=== PATIENT | female | born 1945 | race Caucasian/White ===

== ENCOUNTER 2022-10-24 13:31 | Inpatient (IN) | payer MEDICARE, MEDICAID, SELFPAY ==
--- NOTE | 2022-10-24 14:19 | HO.PSYADMNOT ---
HPI Date of Service: 10/24/22 Chief Complaint: F03.90 F03.9 Sources of Information: patient interviewed, chart reviewed and crisis/core team assessment reviewed HPI Subjective Notes: Section 12B Narrative: Ms. Sahni is a 77 year-old [place]isian woman with hx of paranoia/psychosis (per daughter it has been long hx but mostly untreated until 2019) who was brought to [facility] due to pt presenting as increasingly more paranoid, refusing to eat as she believed her food has been poisoned, threatening to harm her daughter as well as pushing her daughter. In the ED, pt utox was negative. CBC with macrocytic anemia, low potassium (3.2 which was corrected and last potassium level was 4). Pt was given Invega Sustenna 117.5mg IM on 10/16/2022- this was first dose after several months of pt not being compliant with any antipsychotic (per daughter). On the unit, pt presents as agitated, demanding to leave. She declines signing CV. Communication was attempted with daughter on the phone and child care lead teacher deviced. Pt refused to further engage in any conversation with machine set up operator paper goods. Past Psychiatric History: Inpt: [facility] 2019 (pt was committed for involuntary treatment and was given Invega Sustenna 117.5mg IM with good effect) OP: none Past medication trials: invega sustenna Medical Evaluation Reviewed: Yes Labs- 10/08/22 cbc with diff shows macrocytic anemia, elevated MCV, 10/21/22 Sodium- 137;K 4.0; Cr 0.8, BUN 16 ECG 10/07/2022- Normal sinus rhythm, QTc 450ms [facility] Medical History (Updated 10/25/22 @ 08:25 by Roselia Lange) Dementia, unspecified, with behavioral disturbance History of syphilis Hyperlipidemia Hypertension Psychosis Family History: unknown Social History: Lives with daughter Substance History: None Trauma History: Unknown Diagnostics Labs 10/25/22 08:09 10/25/22 08:09 Meds/Allergies Meds Home Medications Medication Instructions Recorded Confirmed Type No Known Home Meds 10/24/22 10/24/22 History Allergies Allergies Allergy/AdvReac Type Severity Reaction Status Date / Time No Known Allergies Allergy Verified 10/24/22 13:55 Mental Status Exam Mental Status Exam Narrative: Appearance: pt wearing casual clothing, fair hygiene, in NAD Behavior: very guarded, hostile and agitated Psychomotor: agitation Speech: difficult to assess as pt speaking in creole and not engaging when asked to use child care lead teacher Delusions: pt guarded and suspicious of staff and her daughter, paranoid ideas Alert, unable to assess orientation SI: unable to assess HI: unable to assess Assessment & Plan Assessment & Plan (1) Schizophrenia, paranoid, chronic with acute exacerbation: Status: Acute Code(s): F20.0 - Paranoid schizophrenia Plan Mrs. Sahni is a 77 year-old [place]ian woman who apparently has long hx of paranoia/psychosis large untreated for decades until 2019 when she presented with increase combative behaviors secondary to paranoid, psychosis. She had been admitted to [facility] in 2019 and given Invega sustenna per records with good effect. Per daughter she has not been on antipsychotics since she was discharged from the hospital. Pt was given Invega Sustenna 117.5mg IM on 10/16/22 at [place] while waiting for psychiatric bed to come. Pt does not appear to have capacity to make medical decisions at this time. Daughter is healthcare proxy, which has been invoked. PLAN 1. Admit to S1, CV signed by HCP, 1:1 due to fall risk 2. order PT consult given unsteady gait 3. Continue Invega Sustenna 117.5mg IM- if she only received one dose and has not taken it for several months or years, can give loading dose- however, check creatine clearance to adjust dose if necessary. 4. Add Olanzapine 10mg po q6h prn agitation with ativan 2mg po q6h agitation 5. Aftercare planning. Patient educated on: diagnosis Reason for continued inpatient stay Substantial Risk for: harm to self, harm to others and inability to function Statement Statement: I have reviewed the history and physical and performed a pertinent examination on my patient. No changes have occurred unless specified. If the History and Physical was not performed prior to admission, the Hospitalist's service will be consulted for completing the admission physical. Time Spent With Patient Time: Total time managing care of this patient today ____ minutes.
--- NOTE | 2022-10-24 16:10 | HO.PM.IMCN ---
History of Present Illness Data of Consult Service Date: 10/24/22 Requesting physician: Wilman Rodríguez Primary Care Provider: Unknown Physician HPI Reason for consult: medical h&p 77-year-old [place] Creole speaking woman with history of unspecified dementia with behavioral disturbance, psychosis, chronic syphilis, hypertension, and hyperlipidemia admitted to Psychiatry with consult placed to hospitalist service for medical H&P. Well at [facility], the patient did have mild hypokalemia of 3.1 which was repleted, with improved potassium 4.0. She does have of mild macrocytic anemia with H/H 10.6/30.9% and MCV of 100.3. UA was negative. EKG showed normal sinus rhythm with nonspecific ST abnormality but no ST elevations or depressions suggestive of acute ischemia. Interview with the patient was conducted using [employer] video interpretor CALVIN # [id number]. Pt was argumentative and unable to be redirected and was not agreeable to participating in further exam. Review of Systems Review of Systems: Yes Unobtainable due to mental status [facility] Medical History (Updated 10/24/22 @ 16:31 by UVALDO Zhao) Dementia, unspecified, with behavioral disturbance History of syphilis Hyperlipidemia Hypertension Psychosis Social History Advance Directives: No Advance Directives Information Provided: Yes Meds Allergies Allergy/AdvReac Type Severity Reaction Status Date / Time No Known Allergies Allergy Verified 10/24/22 13:55 Active Medications: Current Medications Acetaminophen (Acetaminophen 325 Mg Tablet) 650 mg PO Q6H PRN PRN Reason: Headache/Pain Mild Scale (1-3) Al Hydroxide/Mg Hydroxide (Magnesium Hydrox/Alum Hydrox 30 Ml Oral.Susp) 30 ml PO Q6H PRN PRN Reason: Heartburn/Nausea Aspirin (Aspirin 81 Mg Tab.Chew) 81 mg PO DAILY [facility] Atorvastatin Calcium (Atorvastatin Calcium 20 Mg Tablet) 20 mg PO BEDTIME [facility] Hydroxyzine HCl (Hydroxyzine Hcl 25 Mg Tablet) 25 mg PO Q6H PRN PRN Reason: Anxiety Lorazepam (Lorazepam 1 Mg Tablet) 2 mg PO Q6H PRN PRN Reason: agitation Magnesium Hydroxide (Milk Of Magnesia 30 Ml Oral.Susp) 30 ml PO DAILY PRN PRN Reason: Constipation Olanzapine (Olanzapine Odt 10 Mg Tab.Rapdis) 10 mg TRANSLINGU Q6H PRN PRN Reason: agitation Senna/Docusate Sodium (Sennosides/Docusate Sodium Tablet) 1 tab PO BID [facility] Trazodone HCl (Trazodone Hcl 50 Mg Tablet) 50 mg PO BEDTIME PRN PRN Reason: Insomnia Home Medications Medication Instructions Recorded Confirmed Last Taken Type No Known Home Meds 10/24/22 10/24/22 Unknown History Physical Exam Vital Signs and Narrative: Constitutional - Awake and Alert, No apparent distress. Pt agitated, argumentative, unable to be redirected and did not participate in remainder of physical exam Eyes - PERRLA, EOMI Cardiovascular - S1S2, RRR, No edema Respiratory - Normal lung expansion, Normal respiratory effort, No respiratory distress, CTA bilaterally Skin - Warm/Dry Neurological - Alert, argumentative, unwilling to partipate in neuro exam. PERRL, EOMI do appear in tact Assessment and Plan (1) Routine medical exam: Status: Acute Plan 77-year-old [place] Creole speaking woman with history of unspecified dementia with behavioral disturbance, psychosis, chronic syphilis, hypertension, and hyperlipidemia admitted to psychiatry with consult placed to hospitalist service for medical H&P. # unspecified dementia with psychosis -plan per Psychiatry # hypertension -BP at [facility] [place] 144/84 -can continue chlorthalidone 25 mg daily -monitor potassium levels. If hyperkalemia persists, consider alternative antihypertensive agent # hyperlipidemia -continue statin # macrocytic anemia -H/H 10.6/30.9% at [facility] normal, above transfusion threshold -would check vitamin B12 and folic acid when checking routine labs # chronic syphilis -RPR titer 1:4 at [facility] 11/06/2019, unclear if treated -No lumbar puctures performed to date -Discuss with ID/neuro if there is concern neuro syphilis is contributing to patient condition and repeat RPR titer/syphilis screen Thank you for allowing me to participate in this consult. Signing off at this time. Please do not hesitate to call for further questions. Time Spent With Patient Time: Total time managing care of this patient today ____ minutes.
--- NOTE | 2022-10-24 16:33 | PC.NURSE ---
P admitted to the floor via stretcher from [place] ED. Pt reported to have received IM at [place] in order to be transferred. The pt ambulating with an unsteady gait, placed on 1:1 for safety. Attempted to conduct assessment with bed laborer, pt focused on getting her clothes back so she can leave. Information for admission assessment provided by the pt's Daughter Maria G. The pt's daughter reported that the pt has never been physically aggressive while in the hospital. Pt's daughter reported that the pt has not seen her primary care Dr in over [address] years, [address] Gamez from [facility]. Pt's daughter reported the pt has been refusing all medications while at home. HCP (pt's daughter, Maria G Miller) has been invoked.
[2022-10-24 16:39] VITALS: BMI 29.9
[2022-10-24] MEDS: LORazepam 2 MG/ML VIAL 1 MG IM (20:14)
[2022-10-24] MEDS: Haloperidol Lactate 5 MG/ML VIAL IM (20:15)
--- NOTE | 2022-10-24 20:50 | PC.NURSE ---
Pt positioning herself at exit door and refusing to move, actively exit seeking. She was offered alternative activities/spaces or to make a phone call. Pt redirected by several staff and she push, grabbed at staff badges and attempted to bite staff members. Security notified in attempt to encourage pt to move from exit. MD dumont called and order obtained for medical restrain Haldol 5mg and Ativan 1mg IM. Pt expectations were reviewed with pt via integration assistant on ipad with no effect. Pt was given IM injections at 1999. She maintained control after and remains on 1:1 observation.
[2022-10-25 07:30] VITALS: BP 131/58; PULSE 83; RESP 16; TEMP 36.4; O2SAT 96
[2022-10-25 08:12] LABS: MANUAL DIFF FLAG NO
[2022-10-25 08:19] LABS: Basophils Percent Auto 0.4 % (0-2); Eosinophils Absolute Auto 0.1 X10*3/uL (0.0-0.4); Eosinophils Percent Auto 0.7 % (0-4); Hematocrit 36.5 % (37.0-47.0); Hemoglobin 12.2 g/dl (12.0-16.0); Imm Gran Abs Auto 0.04 X10*3/uL (0.00-0.03); Imm Gran Pct Auto 0.5 % (0.0-0.4); Lymphocytes Percent Auto 36.6 % (20-40); Mean Corpuscular HGB Conc 33.4 g/dl (31.0-35.0); Mean Corpuscular Hemoglobin 34.7 pg (27.0-33.0); Mean Corpuscular Volume 103.7 fL (80.0-98.0); Mean Platelet Volume 9.2 fL (9.4-12.3); Monocytes Absolute Auto 0.6 X10*3/uL (0.1-1.2); Monocytes Percent Auto 7.5 % (2-11); NRBC Pct Auto 0.2 /100WBC (0.0-0.2); Neutrophils Absolute Auto 4.5 x10*3/uL (2.0-8.3); Neutrophils Percent Auto 54.3 % (45-73); Platelet Count 273 X10*3/uL (160-400); Red Blood Count 3.52 X10*6/uL (4.20-5.50); White Blood Count 8.2 X10*3/uL (4.8-10.8)
[2022-10-25] MEDS: Aspirin 81 MG TAB.CHEW PO (08:24)
[2022-10-25] MEDS: Sennosides/Docusate Sodium TABLET 1 TAB PO (08:25)
[2022-10-25 08:40] LABS: Estimated Average Glucose 108 mg/dL; Hemoglobin A1c % 5.4 %
[2022-10-25 08:55] LABS: Alanine Aminotransferase 20 U/L (0-31); Albumin Level 3.7 g/dL (3.5-5.0); Alkaline Phosphatase 81 U/L (39-117); Anion Gap 16 (12-20); Aspartate Amino Transferase 21 U/L (5-31); Bilirubin Total 0.4 mg/dL (0.0-1.0); Blood Urea Nitrogen 20 mg/dL (9-16); Carbon Dioxide 24 mmol/L (22-29); Chloride 107 mmol/L (96-108); Cholesterol 288 mg/dL; Creatinine Clr Calc Pharmacy 60.2; Estimated Glomerular Filt Rate > 60; Glucose Fasting 119 mg/dL (60-99); HDL Cholesterol 63 mg/dL; LDL Cholesterol Calculated 193 mg/dl; Potassium 4.5 mmol/L (3.3-5.1); Sodium 142 mmol/L (135-145); Total Protein 6.8 g/dL (6.5-8.0); Triglycerides 160 mg/dL
[2022-10-25 09:17] LABS: Folate 6.5 ng/mL (> or = 4.0); Vitamin B12 < 148 pg/mL (200-900)
[2022-10-25 18:00] VITALS: BP 139/71; PULSE 87; RESP 16; TEMP 35.7; O2SAT 94
--- NOTE | 2022-10-26 08:45 | P.PNPSI_ITS ---
Subjective Subjective Date of Service: 10/25/22 Reason For Visit: F03.90 F03.9 Subjective Notes: Conditional Voluntary (signed by HCP) Interim History: Pt had episode of combativeness last night, trying to strike staff, not responding to redirection. Pt required haldol IM with ativan IM. Pt has slept most of the day, did wake up for breakfast this morning. This senior underwriter checked twice in morning and evening and was still asleep. She did open her eyes, briefly when I called her name but went back to sleep. It was felt more therapeutic to let her sleep than waking her up. VS stable. No s/s of physical distress. Medication Compliance: No Review of Systems Review of Systems Yes Unobtainable due to mental status Mental Status Exam Mental Status Exam Narrative: Appearance: pt wearing casual clothing, fair hygiene, in NAD Behavior: very guarded, hostile and agitated Psychomotor: agitation Speech: difficult to assess as pt speaking in creole and not engaging when asked to use fence erector Delusions: pt guarded and suspicious of staff and her daughter, paranoid ideas Alert, unable to assess orientation SI: unable to assess HI: unable to assess Diagnostics Vital Signs (24Hr): Vital Signs - 24 hr 10/25/22 18:00 Temperature 96.3 F L Pulse Rate 87 Respiratory Rate 16 Blood Pressure 139/71 Pulse Oximetry 94 Oxygen Delivery Method Room Air BMI result Body Mass Index 29.9 Labs 10/25/22 08:09 10/25/22 08:09 Labs: Laboratory Results - last 48 hr 10/25/22 10/25/22 10/25/22 08:09 08:09 08:09 WBC 8.2 RBC 3.52 L Hgb 12.2 Hct 36.5 L MCV 103.7 H MCH 34.7 H MCHC 33.4 RDW 14.0 Plt Count 273 MPV 9.2 L Immature Gran % (Auto) 0.5 H Neut % (Auto) 54.3 Lymph % (Auto) 36.6 [place] % (Auto) 7.5 Eos % (Auto) 0.7 Baso % (Auto) 0.4 Lymph # (Auto) 3.0 [place] # (Auto) 0.6 Eos # (Auto) 0.1 Baso # (Auto) 0.0 Abs Immat Gran (auto) 0.04 H Absolute Neuts (auto) 4.5 Absolute Nucleated RBC 0.020 H Nucleated RBC % (auto) 0.2 Sodium 142 Potassium 4.5 Chloride 107 Carbon Dioxide 24 Anion Gap 16 BUN 20 H Creatinine 0.83 Estim Creat Clear Calc 60.2 Estimated GFR > 60 Fasting Glucose 119 H Estimat Average Glucose 108 Hemoglobin A1c % 5.4 Calcium 9.0 Total Bilirubin 0.4 AST 21 ALT 20 Alkaline Phosphatase 81 Total Protein 6.8 Albumin 3.7 Triglycerides 160 Cholesterol 288 LDL Cholesterol, Calc 193 HDL Cholesterol 63 Vitamin B12 < 148 L Folate 6.5 TSH 1.70 Medications Medications Current Medications Acetaminophen (Acetaminophen 325 Mg Tablet) 650 mg PO Q6H PRN PRN Reason: Headache/Pain Mild Scale (1-3) Al Hydroxide/Mg Hydroxide (Magnesium Hydrox/Alum Hydrox 30 Ml Oral.Susp) 30 ml PO Q6H PRN PRN Reason: Heartburn/Nausea Aspirin (Aspirin 81 Mg Tab.Chew) 81 mg PO DAILY [facility] Last Admin: 10/25/22 08:24 Dose: 81 mg Atorvastatin Calcium (Atorvastatin Calcium 20 Mg Tablet) 20 mg PO BEDTIME [facility] Last Admin: 10/25/22 22:17 Dose: Not Given Hydroxyzine HCl (Hydroxyzine Hcl 25 Mg Tablet) 25 mg PO Q6H PRN PRN Reason: Anxiety Lorazepam (Lorazepam 1 Mg Tablet) 2 mg PO Q6H PRN PRN Reason: agitation Magnesium Hydroxide (Milk Of Magnesia 30 Ml Oral.Susp) 30 ml PO DAILY PRN PRN Reason: Constipation Olanzapine (Olanzapine Odt 10 Mg Tab.Rapdis) 10 mg TRANSLINGU Q6H PRN PRN Reason: agitation Senna/Docusate Sodium (Sennosides/Docusate Sodium Tablet) 1 tab PO BID [facility] Last Admin: 10/25/22 22:17 Dose: Not Given Trazodone HCl (Trazodone Hcl 50 Mg Tablet) 50 mg PO BEDTIME PRN PRN Reason: Insomnia Allergies Allergies Allergy/AdvReac Type Severity Reaction Status Date / Time No Known Allergies Allergy Verified 10/24/22 13:55 Assessment & Plan Assessment & Plan (1) Schizophrenia, paranoid, chronic with acute exacerbation: Status: Acute Code(s): F20.0 - Paranoid schizophrenia Plan Mrs. Sahni is a 77 year-old [place]ian woman who apparently has long hx of paranoia/psychosis large untreated for decades until 2019 when she presented with increase combative behaviors secondary to paranoid, psychosis. She had been admitted to [facility] in 2019 and given Invega sustenna per records with good effect. Per daughter she has not been on antipsychotics since she was discharged from the hospital. Pt was given Invega Sustenna 117.5mg IM on 10/16/22 at [place] while waiting for psychiatric bed to come. Pt does not appear to have capacity to make medical decisions at this time. Daughter is healthcare proxy, which has been invoked. PLAN 1. Admit to S1, CV signed by HCP, 1:1 due to fall risk 2. order PT consult given unsteady gait 3. Continue Invega Sustenna 117.5mg IM- if she only received one dose and has not taken it for several months or years, can give loading dose- however, check creatine clearance to adjust dose if necessary. 4. Add Olanzapine 10mg po q6h prn agitation with ativan 2mg po q6h agitation 5. Aftercare planning. 10/25/22 continue tx. HCP invoked, CV signed by HCP. Reason for contiued inpatient stay Substantial Risk for: harm to others and inability to function Time Spent With Patient Time: Total time managing care of this patient today ____ minutes.
[2022-10-26] MEDS: Aspirin 81 MG TAB.CHEW PO (09:30)
[2022-10-26] MEDS: Sennosides/Docusate Sodium TABLET 1 TAB PO (09:30)
[2022-10-26 09:42] VITALS: BP 147/66; PULSE 74; RESP 16; TEMP 36.3; O2SAT 97
--- NOTE | 2022-10-26 11:29 | HO.PSYCHPN ---
Subjective Subjective Date of Service: 10/26/22 Reason For Visit: F03.90 F03.9 Subjective Notes: Conditional Voluntary (signed by HCP) Healthcare Proxy: Yes Interim History: Pt seen with CINDA Paul. Pt presents calmer, asks to be discharged today. Pt interviewed with aid of phone gas prover line in creole. Pt denies paranoia regarding food, per gas prover, pt stated that that is crazy, who said that! I eat everything. Pt has been seen eating here better. Pt guarded towards daughter and states daughter wants to take her house from her, although pt states the house was bought by both of them. Pt has been seen self dialoguing. Pt had episode of combativeness last night but agreed to take oral medications. She slept most of the night. Pt reports she does not want Invega Sustenna as she does not like injection. She asks for oral formulation instead. Pt oriented to month, year, place, not situation as she states she does not know why she is here. Medication Compliance: Intermittent Review of Systems Review of Systems Yes Unobtainable due to mental status Mental Status Exam Mental Status Exam Narrative: Appearance: pt wearing casual clothing, fair hygiene, in NAD Behavior: very guarded, hostile and agitated Psychomotor: agitation Speech: difficult to assess as pt speaking in creole and not engaging when asked to use campus wellness coordinator Delusions: pt guarded and suspicious of staff and her daughter, paranoid ideas Alert, unable to assess orientation SI: unable to assess HI: unable to assess Diagnostics Vital Signs (24Hr): Vital Signs - 24 hr 10/25/22 18:00 10/26/22 09:42 Temperature 96.3 F L 97.4 F Pulse Rate 87 74 Respiratory Rate 16 16 Blood Pressure 139/71 147/66 H Pulse Oximetry 94 97 Oxygen Delivery Method Room Air Room Air BMI result Body Mass Index 29.9 Labs 10/25/22 08:09 10/25/22 08:09 Labs: Laboratory Results - last 48 hr 10/25/22 10/25/22 10/25/22 08:09 08:09 08:09 WBC 8.2 RBC 3.52 L Hgb 12.2 Hct 36.5 L MCV 103.7 H MCH 34.7 H MCHC 33.4 RDW 14.0 Plt Count 273 MPV 9.2 L Immature Gran % (Auto) 0.5 H Neut % (Auto) 54.3 Lymph % (Auto) 36.6 [place] % (Auto) 7.5 Eos % (Auto) 0.7 Baso % (Auto) 0.4 Lymph # (Auto) 3.0 [place] # (Auto) 0.6 Eos # (Auto) 0.1 Baso # (Auto) 0.0 Abs Immat Gran (auto) 0.04 H Absolute Neuts (auto) 4.5 Absolute Nucleated RBC 0.020 H Nucleated RBC % (auto) 0.2 Sodium 142 Potassium 4.5 Chloride 107 Carbon Dioxide 24 Anion Gap 16 BUN 20 H Creatinine 0.83 Estim Creat Clear Calc 60.2 Estimated GFR > 60 Fasting Glucose 119 H Estimat Average Glucose 108 Hemoglobin A1c % 5.4 Calcium 9.0 Total Bilirubin 0.4 AST 21 ALT 20 Alkaline Phosphatase 81 Total Protein 6.8 Albumin 3.7 Triglycerides 160 Cholesterol 288 LDL Cholesterol, Calc 193 HDL Cholesterol 63 Vitamin B12 < 148 L Folate 6.5 TSH 1.70 Medications Medications Current Medications Acetaminophen (Acetaminophen 325 Mg Tablet) 650 mg PO Q6H PRN PRN Reason: Headache/Pain Mild Scale (1-3) Al Hydroxide/Mg Hydroxide (Magnesium Hydrox/Alum Hydrox 30 Ml Oral.Susp) 30 ml PO Q6H PRN PRN Reason: Heartburn/Nausea Aspirin (Aspirin 81 Mg Tab.Chew) 81 mg PO DAILY [facility] Last Admin: 10/26/22 09:30 Dose: 81 mg Atorvastatin Calcium (Atorvastatin Calcium 20 Mg Tablet) 20 mg PO BEDTIME [facility] Last Admin: 10/25/22 22:17 Dose: Not Given Hydroxyzine HCl (Hydroxyzine Hcl 25 Mg Tablet) 25 mg PO Q6H PRN PRN Reason: Anxiety Lorazepam (Lorazepam 1 Mg Tablet) 2 mg PO Q6H PRN PRN Reason: agitation Magnesium Hydroxide (Milk Of Magnesia 30 Ml Oral.Susp) 30 ml PO DAILY PRN PRN Reason: Constipation Olanzapine (Olanzapine Odt 10 Mg Tab.Rapdis) 10 mg TRANSLINGU Q6H PRN PRN Reason: agitation Senna/Docusate Sodium (Sennosides/Docusate Sodium Tablet) 1 tab PO BID [facility] Last Admin: 10/26/22 09:30 Dose: 1 tab Trazodone HCl (Trazodone Hcl 50 Mg Tablet) 50 mg PO BEDTIME PRN PRN Reason: Insomnia Allergies Allergies Allergy/AdvReac Type Severity Reaction Status Date / Time No Known Allergies Allergy Verified 10/24/22 13:55 Assessment & Plan Assessment & Plan (1) Schizophrenia, paranoid, chronic with acute exacerbation: Status: Acute Code(s): F20.0 - Paranoid schizophrenia Plan Mrs. Sahni is a 77 year-old Turkish woman who apparently has long hx of paranoia/psychosis large untreated for decades until 2019 when she presented with increase combative behaviors secondary to paranoid, psychosis. She had been [facility] to [facility] in 2019 and given Invega sustenna per records with good effect. Per daughter she has not been on antipsychotics since she was discharged from the hospital. Pt was given Invega Sustenna 117.5mg IM on 10/16/22 at [facility] while waiting for psychiatric bed to come. Pt does not appear to have capacity to make medical decisions at this time. Daughter is healthcare proxy, which has been invoked. PLAN 1. Admit to , CV signed by HCP, 1:1 due to fall risk 2. order PT consult given unsteady gait 3. Continue Invega Sustenna 117mg IM- if she only received one dose and has not taken it for several months or years, can give loading dose- however, check creatine clearance to adjust dose if necessary. 4. Add Olanzapine 10mg po q6h prn agitation with ativan 2mg po q6h agitation 5. Aftercare planning. 10/25/22 continue tx. HCP invoked, CV signed by HCP. 10/26 creatine clearance is 60, recommended dose 117mg but could be increase monitoring for side effects as excretion is less. Will schedule low dose haldol (monitor for EPS). At this point pt declines invega Sustenna FIGUEROA. Haldol 2.5mg po BID. Pt may benefit for mood stabilizer for explosive behaviors. Reason for contiued inpatient stay Substantial Risk for: harm to others and inability to function Time Spent With Patient Time: Total time managing care of this patient today ____ minutes.
[2022-10-26 18:00] VITALS: BP 167/92; PULSE 80; RESP 16; TEMP 36.2; O2SAT 98
[2022-10-27 08:30] VITALS: BP 138/63; PULSE 87; RESP 16; TEMP 36.3; O2SAT 99
[2022-10-27] MEDS: Aspirin 81 MG TAB.CHEW PO (08:45)
[2022-10-27] MEDS: HaloperidoL 5 MG TABLET 2.5 MG PO ×2 (08:45→19:45)
[2022-10-27] MEDS: Sennosides/Docusate Sodium TABLET 1 TAB PO ×2 (08:46→19:43)
--- NOTE | 2022-10-27 18:48 | PC.NURSE ---
Agitation noted 1800, trying to get out patio door. Difficult to redirect, loudly screaming at times. Ambulated to main entrance door, wanting to exit. Staff unable to redirect. Staff unable to enter and exit unit. Security called and pt ambulated back into community area with them without need for hands on escort. Pt returned to sit in front of main entrance door after security left unit. Belonging placed in room and pt followed staff with increased agitation. Pt picked up waste basket and threw it out in mack from room. Pt then slammed door of bathroom. Pt then exited room with belongings and sat in community area at table. Ativan 2 mg and Zydis 10mg po offered at 1855 and refused. Gestured with hands that she was calming by lowering hands in downward motion. Oncoming shift updated on behaviors and refusal of meds offered.
[2022-10-27] MEDS: OLANZapine ODT 10 MG TAB.RAPDIS TRANSLINGU (19:43)
[2022-10-27] MEDS: LORazepam 1 MG TABLET 2 MG PO (19:44)
[2022-10-27] MEDS: Atorvastatin Calcium 20 MG TABLET PO (19:48)
[2022-10-27 19:50] VITALS: BP 142/72; PULSE 88; RESP 17; TEMP 36.3; O2SAT 98
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
[2022-10-28] MEDS: HaloperidoL 5 MG TABLET 2.5 MG PO (09:18)
[2022-10-28] MEDS: Aspirin 81 MG TAB.CHEW PO (09:19)
[2022-10-28] MEDS: Sennosides/Docusate Sodium TABLET 1 TAB PO (09:19)
[2022-10-28 09:22] VITALS: BP 120/59; PULSE 71; RESP 16; TEMP 36.7; O2SAT 98
--- NOTE | 2022-10-28 13:01 | HO.PSYCHPN ---
Subjective Subjective Date of Service: 10/28/22 Reason For Visit: F03.90 F03.9 Subjective Notes: Conditional Voluntary Healthcare Proxy: Yes Interim History: pt has been calmer, She did take haldol twice a day. She slept through the night. Her speech is more clear. She reports feeling well. She denies physical pain. She continues to self dialogue with her . No aggression, still very paranoid and suspicious towards daughter. Medication Compliance: Yes Review of Systems Review of Systems Yes Unobtainable due to mental status Mental Status Exam Mental Status Exam Narrative: Appearance: pt wearing casual clothing, fair hygiene, in NAD Behavior: much calmer, less agitated, pleasant Psychomotor: no agitation or retardation noted Speech: much clear, regular rate/rhythm/volume, spontaneous Delusions: pt guarded and suspicious of staff and her daughter, paranoid ideas Alert, oriented to place, month, date but not situation VH/AH: pt talking to who is not there nor he exists. SI: denies HI: denies Mood: good Affect: brighter, less labile Insight/judgment: impaired x 2. although improving Diagnostics Vital Signs (24Hr): Vital Signs - 24 hr 10/27/22 19:50 10/28/22 09:22 Temperature 97.4 F 98.1 F Pulse Rate 88 71 Respiratory Rate 17 16 Blood Pressure 142/72 H 120/59 L Pulse Oximetry 98 98 Oxygen Delivery Method Room Air Room Air BMI result Body Mass Index 29.9 Labs 10/25/22 08:09 10/25/22 08:09 Medications Medications Current Medications Acetaminophen (Acetaminophen 325 Mg Tablet) 650 mg PO Q6H PRN PRN Reason: Headache/Pain Mild Scale (1-3) Al Hydroxide/Mg Hydroxide (Magnesium Hydrox/Alum Hydrox 30 Ml Oral.Susp) 30 ml PO Q6H PRN PRN Reason: Heartburn/Nausea Aspirin (Aspirin 81 Mg Tab.Chew) 81 mg PO DAILY [facility] Last Admin: 10/28/22 09:19 Dose: 81 mg Atorvastatin Calcium (Atorvastatin Calcium 20 Mg Tablet) 20 mg PO BEDTIME [facility] Last Admin: 10/27/22 19:48 Dose: 20 mg Haloperidol (Haloperidol 5 Mg Tablet) 2.5 mg PO BID [facility] Last Admin: 10/28/22 09:18 Dose: 2.5 mg Hydroxyzine HCl (Hydroxyzine Hcl 25 Mg Tablet) 25 mg PO Q6H PRN PRN Reason: Anxiety Lorazepam (Lorazepam 1 Mg Tablet) 2 mg PO Q6H PRN PRN Reason: agitation Last Admin: 10/27/22 19:44 Dose: 2 mg Magnesium Hydroxide (Milk Of Magnesia 30 Ml Oral.Susp) 30 ml PO DAILY PRN PRN Reason: Constipation Olanzapine (Olanzapine Odt 10 Mg Tab.Rapdis) 10 mg TRANSLINGU Q6H PRN PRN Reason: agitation Last Admin: 10/27/22 19:43 Dose: 10 mg Senna/Docusate Sodium (Sennosides/Docusate Sodium Tablet) 1 tab PO BID [facility] Last Admin: 10/28/22 09:19 Dose: 1 tab Trazodone HCl (Trazodone Hcl 50 Mg Tablet) 50 mg PO BEDTIME PRN PRN Reason: Insomnia Allergies Allergies Allergy/AdvReac Type Severity Reaction Status Date / Time No Known Allergies Allergy Verified 10/24/22 13:55 Assessment & Plan Assessment & Plan (1) Schizophrenia, paranoid, chronic with acute exacerbation: Status: Acute Code(s): F20.0 - Paranoid schizophrenia Plan Mrs. Sahni is a 77 year-old Micronesian woman who apparently has long hx of paranoia/psychosis large untreated for decades until 2019 when she presented with increase combative behaviors secondary to paranoid, psychosis. She had been admitted to [facility] in 2019 and given Invega sustenna per records with good effect. Per daughter she has not been on antipsychotics since she was discharged from the hospital. Pt was given Invega Sustenna 117.5mg IM on 10/16/22 at [place] while waiting for psychiatric bed to come. Pt does not appear to have capacity to make medical decisions at this time. Daughter is healthcare proxy, which has been invoked. PLAN 10/27 continue tx. 10/28 continue tx Reason for contiued inpatient stay Substantial Risk for: harm to others and inability to function Time Spent With Patient Time: Total time managing care of this patient today ____ minutes.
[2022-10-28 18:00] VITALS: RESP 16
[2022-10-29] MEDS: Aspirin 81 MG TAB.CHEW PO (09:10)
[2022-10-29] MEDS: HaloperidoL 5 MG TABLET 2.5 MG PO (09:10)
[2022-10-29] MEDS: Sennosides/Docusate Sodium TABLET 1 TAB PO (09:10)
[2022-10-29 18:00] VITALS: BP 141/63; PULSE 69; RESP 18; TEMP 36.4; O2SAT 95
--- NOTE | 2022-10-29 20:08 | HO.PSYCHPN ---
Subjective Subjective Date of Service: 10/29/22 Reason For Visit: F03.90 F03.9 Subjective Notes: Conditional Voluntary Interim History: Pt mostly in her room. Minimally interactive with peers. This magnetic tape typewriter operator observed pt talking to person she reports is her - which is not there. She did take haldol twice a day. She slept through the night. Her speech is more clear. She reports feeling well. She denies physical pain.No aggression, still very paranoid and suspicious towards daughter. Review of Systems Review of Systems Yes Unobtainable due to mental status Mental Status Exam Mental Status Exam Narrative: Appearance: pt wearing casual clothing, fair hygiene, in NAD Behavior: much calmer, less agitated, pleasant Psychomotor: no agitation or retardation noted Speech: much clear, regular rate/rhythm/volume, spontaneous Delusions: pt guarded and suspicious of staff and her daughter, paranoid ideas Alert, oriented to place, month, date but not situation VH/AH: pt talking to who is not there nor he exists. SI: denies HI: denies Mood: good Affect: brighter, less labile Insight/judgment: impaired x 2. although improving Diagnostics Vital Signs (24Hr): BMI result Body Mass Index 29.9 Labs 10/25/22 08:09 10/25/22 08:09 Medications Medications Current Medications Acetaminophen (Acetaminophen 325 Mg Tablet) 650 mg PO Q6H PRN PRN Reason: Headache/Pain Mild Scale (1-3) Last Admin: 10/29/22 20:05 Dose: 650 mg Al Hydroxide/Mg Hydroxide (Magnesium Hydrox/Alum Hydrox 30 Ml Oral.Susp) 30 ml PO Q6H PRN PRN Reason: Heartburn/Nausea Aspirin (Aspirin 81 Mg Tab.Chew) 81 mg PO DAILY [facility] Last Admin: 10/29/22 09:10 Dose: 81 mg Atorvastatin Calcium (Atorvastatin Calcium 20 Mg Tablet) 20 mg PO BEDTIME [facility] Last Admin: 10/29/22 20:04 Dose: 20 mg Haloperidol (Haloperidol 5 Mg Tablet) 2.5 mg PO BID [facility] Last Admin: 10/29/22 20:06 Dose: 2.5 mg Hydroxyzine HCl (Hydroxyzine Hcl 25 Mg Tablet) 25 mg PO Q6H PRN PRN Reason: Anxiety Lidocaine (Lidocaine 4 % Patch Adh..Patch) 2 patch TRANSDERMA DAILY [facility]; Protocol Last Admin: 10/29/22 20:06 Dose: 2 patch Magnesium Hydroxide (Milk Of Magnesia 30 Ml Oral.Susp) 30 ml PO DAILY PRN PRN Reason: Constipation Olanzapine (Olanzapine Odt 10 Mg Tab.Rapdis) 10 mg TRANSLINGU Q6H PRN PRN Reason: agitation Last Admin: 10/27/22 19:43 Dose: 10 mg Senna/Docusate Sodium (Sennosides/Docusate Sodium Tablet) 1 tab PO BID [facility] Last Admin: 10/29/22 20:05 Dose: 1 tab Trazodone HCl (Trazodone Hcl 50 Mg Tablet) 50 mg PO BEDTIME PRN PRN Reason: Insomnia Allergies Allergies Allergy/AdvReac Type Severity Reaction Status Date / Time No Known Allergies Allergy Verified 10/24/22 13:55 Assessment & Plan Assessment & Plan (1) Schizophrenia, paranoid, chronic with acute exacerbation: Status: Acute Code(s): F20.0 - Paranoid schizophrenia Plan Mrs. Sahni is a 77 year-old Singaporean woman who apparently has long hx of paranoia/psychosis large untreated for decades until 2019 when she presented with increase combative behaviors secondary to paranoid, psychosis. She had been admitted to [facility] in 2019 and given Invega sustenna per records with good effect. Per daughter she has not been on antipsychotics since she was discharged from the hospital. Pt was given Invega Sustenna 117.5mg IM on 10/16/22 at [facility] while waiting for psychiatric bed to come. Pt does not appear to have capacity to make medical decisions at this time. Daughter is healthcare proxy, which has been invoked. PLAN 10/27 Continue tx including haldol 2.5mg po BID. Pt received last Invega Sustenna 117 mg IM on 10/16, declines second loading FIGUEROA of invega at this point. 10/28 continue tx. 10/28 continue tx. Reason for contiued inpatient stay Substantial Risk for: inability to function Time Spent With Patient Time: Total time managing care of this patient today ____ minutes.
--- NOTE | 2022-10-30 13:27 | P.PNPSI_ITS ---
Subjective Subjective Date of Service: 10/30/22 Reason For Visit: F03.90 F03.9 Interim History: Pt refused medications last night and this morning. Pt exit seeking, trying to leave unit. Pt states she is not staying here, wants to go. Staff trying to redirect her, she tried kicking staff, combative. She finally did agree to take olanzapine 10mg po. Pt later in bed, calmer. Pt seen talking to someone who is not there. Denies SI/HI. Medication Compliance: Intermittent Review of Systems Review of Systems Yes Unobtainable due to mental status Mental Status Exam Mental Status Exam Narrative: Appearance: pt wearing casual clothing, fair hygiene, in NAD Behavior: much calmer, less agitated, pleasant Psychomotor: no agitation or retardation noted Speech: much clear, regular rate/rhythm/volume, spontaneous Delusions: pt guarded and suspicious of staff and her daughter, paranoid ideas Alert, oriented to place, month, date but not situation VH/AH: pt talking to who is not there nor he exists. SI: denies HI: denies Mood: good Affect: brighter, less labile Insight/judgment: impaired x 2. although improving Diagnostics Vital Signs (24Hr): Vital Signs - 24 hr 10/29/22 18:00 Temperature 97.5 F Pulse Rate 69 Respiratory Rate 18 Blood Pressure 141/63 H Pulse Oximetry 95 Oxygen Delivery Method Room Air BMI result Body Mass Index 29.9 Labs 10/25/22 08:09 10/25/22 08:09 Medications Medications Current Medications Acetaminophen (Acetaminophen 325 Mg Tablet) 650 mg PO Q6H PRN PRN Reason: Headache/Pain Mild Scale (1-3) Al Hydroxide/Mg Hydroxide (Magnesium Hydrox/Alum Hydrox 30 Ml Oral.Susp) 30 ml PO Q6H PRN PRN Reason: Heartburn/Nausea Aspirin (Aspirin 81 Mg Tab.Chew) 81 mg PO DAILY [facility] Last Admin: 10/30/22 09:50 Dose: Not Given Atorvastatin Calcium (Atorvastatin Calcium 20 Mg Tablet) 20 mg PO BEDTIME [facility] Last Admin: 10/29/22 20:11 Dose: Not Given Haloperidol (Haloperidol 1 Mg Tablet) 3 mg PO BID [facility] Hydroxyzine HCl (Hydroxyzine Hcl 25 Mg Tablet) 25 mg PO Q6H PRN PRN Reason: Anxiety Lidocaine (Lidocaine 4 % Patch Adh..Patch) 2 patch TRANSDERMA DAILY [facility]; Protocol Magnesium Hydroxide (Milk Of Magnesia 30 Ml Oral.Susp) 30 ml PO DAILY PRN PRN Reason: Constipation Olanzapine (Olanzapine Odt 10 Mg Tab.Rapdis) 10 mg TRANSLINGU Q6H PRN PRN Reason: agitation Last Admin: 10/27/22 19:43 Dose: 10 mg Senna/Docusate Sodium (Sennosides/Docusate Sodium Tablet) 1 tab PO BID [facility] Last Admin: 10/30/22 09:51 Dose: Not Given Trazodone HCl (Trazodone Hcl 50 Mg Tablet) 50 mg PO BEDTIME PRN PRN Reason: Insomnia Allergies Allergies Allergy/AdvReac Type Severity Reaction Status Date / Time No Known Allergies Allergy Verified 10/24/22 13:55 Assessment & Plan Assessment & Plan (1) Schizophrenia, paranoid, chronic with acute exacerbation: Status: Acute Code(s): F20.0 - Paranoid schizophrenia Plan Mrs. Sahni is a 77 year-old Mauritian woman who apparently has long hx of paranoia/psychosis large untreated for decades until 2019 when she presented with increase combative behaviors secondary to paranoid, psychosis. She had been admitted to [facility] in 2019 and given Invega sustenna per records with good effect. Per daughter she has not been on antipsychotics since she was discharged from the hospital. Pt was given Invega Sustenna 117.5mg IM on 10/16/22 at [place] while waiting for psychiatric bed to come. Pt does not appear to have capacity to make medical decisions at this time. Daughter is healthcare proxy, which has been invoked. PLAN 10/27 Continue tx including haldol 2.5mg po BID. Pt received last Invega Sustenna 117 mg IM on 10/16, declines second loading FIGUEROA of invega at this point. 10/28 continue tx. 10/29 continue tx. 10/30 increasingly more combative,exit seeking, may have to affirm HCP Reason for contiued inpatient stay Substantial Risk for: harm to others and inability to function Time Spent With Patient Time: Total time managing care of this patient today ____ minutes.
[2022-10-30] MEDS: OLANZapine ODT 10 MG TAB.RAPDIS TRANSLINGU (14:00)
[2022-10-30] MEDS: LORazepam 1 MG TABLET PO (16:02)
[2022-10-30] MEDS: HaloperidoL 5 MG TABLET PO (16:02)
[2022-10-30] MEDS: Lidocaine 4 % Patch ADH..PATCH 2 PATCH TRANSDERMA (17:43)
[2022-10-30 18:00] VITALS: BP 156/67; PULSE 92; RESP 18; TEMP 36.1; O2SAT 98
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
[2022-10-30] MEDS: HaloperidoL 1 MG TABLET 3 MG PO (23:22)
[2022-10-30] MEDS: traZODone HCL 50 MG TABLET PO (23:22)
[2022-10-31 08:15] VITALS: BP 125/60; PULSE 98; RESP 16; TEMP 36.9; O2SAT 97
[2022-10-31] MEDS: OLANZapine ODT 10 MG TAB.RAPDIS TRANSLINGU ×2 (08:30→14:30)
[2022-10-31 18:00] VITALS: RESP 16
--- NOTE | 2022-10-31 21:44 | P.PNPSI_ITS ---
Subjective Subjective Date of Service: 10/31/22 Reason For Visit: F03.90 F03.9 Subjective Notes: Conditional Voluntary Healthcare Proxy: Yes Interim History: Pt did not sleep much last night. This morning, pt calmer, but declined medications as number of pills is too many. Haldol changed to 5mg po BID, so there is less tablets. Pt signed 3 day. Pt mostly visible during the day, social with select peers. Continues to talk to someone who is not there. She reports she can't take medications because she is . Review of Systems Review of Systems Yes Unobtainable due to mental status Mental Status Exam Mental Status Exam Narrative: Appearance: pt wearing casual clothing, fair hygiene, in NAD Behavior: much calmer, less agitated, pleasant Psychomotor: no agitation or retardation noted Speech: much clear, regular rate/rhythm/volume, spontaneous Delusions: pt guarded and suspicious of staff and her daughter, paranoid ideas Alert, oriented to place, month, date but not situation VH/AH: pt talking to who is not there nor he exists. SI: denies HI: denies Mood: good Affect: brighter, less labile Insight/judgment: impaired x 2. although improving Diagnostics Vital Signs (24Hr): Vital Signs - 24 hr 10/31/22 08:15 10/31/22 18:00 Temperature 98.4 F Pulse Rate 98 Respiratory Rate 16 16 Blood Pressure 125/60 Pulse Oximetry 97 Oxygen Delivery Method Room Air BMI result Body Mass Index 29.9 Labs 10/25/22 08:09 10/25/22 08:09 Medications Medications Current Medications Acetaminophen (Acetaminophen 325 Mg Tablet) 650 mg PO Q6H PRN PRN Reason: Headache/Pain Mild Scale (1-3) Al Hydroxide/Mg Hydroxide (Magnesium Hydrox/Alum Hydrox 30 Ml Oral.Susp) 30 ml PO Q6H PRN PRN Reason: Heartburn/Nausea Aspirin (Aspirin 81 Mg Tab.Chew) 81 mg PO DAILY [facility] Last Admin: 10/31/22 10:14 Dose: Not Given Atorvastatin Calcium (Atorvastatin Calcium 20 Mg Tablet) 20 mg PO BEDTIME [facility] Last Admin: 10/31/22 21:19 Dose: Not Given Haloperidol (Haloperidol 5 Mg Tablet) 5 mg PO BID [facility] Last Admin: 10/31/22 21:19 Dose: Not Given Hydroxyzine HCl (Hydroxyzine Hcl 25 Mg Tablet) 25 mg PO Q6H PRN PRN Reason: Anxiety Lidocaine (Lidocaine 4 % Patch Adh..Patch) 2 patch TRANSDERMA DAILY [facility]; Protocol Last Admin: 10/31/22 10:14 Dose: Not Given Magnesium Hydroxide (Milk Of Magnesia 30 Ml Oral.Susp) 30 ml PO DAILY PRN PRN Reason: Constipation Olanzapine (Olanzapine Odt 10 Mg Tab.Rapdis) 10 mg TRANSLINGU Q6H PRN PRN Reason: agitation Last Admin: 10/31/22 14:30 Dose: 10 mg Senna/Docusate Sodium (Sennosides/Docusate Sodium Tablet) 1 tab PO BID [facility] Last Admin: 10/31/22 21:18 Dose: Not Given Trazodone HCl (Trazodone Hcl 50 Mg Tablet) 50 mg PO BEDTIME PRN PRN Reason: Insomnia Last Admin: 10/30/22 23:22 Dose: 50 mg Allergies Allergies Allergy/AdvReac Type Severity Reaction Status Date / Time No Known Allergies Allergy Verified 10/24/22 13:55 Assessment & Plan Assessment & Plan (1) Schizophrenia, paranoid, chronic with acute exacerbation: Status: Acute Code(s): F20.0 - Paranoid schizophrenia Plan Mrs. Sahni is a 77 year-old Welsh woman who apparently has long hx of paranoia/psychosis large untreated for decades until 2019 when she presented with increase combative behaviors secondary to paranoid, psychosis. She had been admitted to [facility] in 2019 and given Invega sustenna per records with good effect. Per daughter she has not been on antipsychotics since she was discharged from the hospital. Pt was given Invega Sustenna 117.5mg IM on 10/16/22 at [place] while waiting for psychiatric bed to come. Pt does not appear to have capacity to make medical decisions at this time. Daughter is healthcare proxy, which has been invoked. PLAN 10/27 Continue tx including haldol 2.5mg po BID. Pt received last Invega Sustenna 117 mg IM on 10/16, declines second loading FIGUEROA of invega at this point. 10/28 continue tx. 10/29 continue tx. 10/30 increase haldol to 3mg po BID 10/31 increase haldol to 5mg po BID as it is less pills per pt request and fact that she continues to present floridly psychotic. Reason for contiued inpatient stay Substantial Risk for: harm to others and inability to function Time Spent With Patient Time: Total time managing care of this patient today ____ minutes.
[2022-11-01 06:00] VITALS: BP 127/57; PULSE 85; RESP 16; TEMP 36; O2SAT 97
[2022-11-01 18:00] VITALS: BP 154/71; PULSE 88; RESP 14; TEMP 36.3; O2SAT 97
--- NOTE | 2022-11-01 21:32 | HO.PSYCHPN ---
Subjective Subjective Date of Service: 11/01/22 Reason For Visit: F03.90 F03.9 Subjective Notes: Conditional Voluntary and 3 Day Healthcare Proxy: Yes Interim History: Pt in room much of time speech was mumbled irritable dysphoric Medication Compliance: Intermittent Mental Status Exam Mental Status Exam Narrative: Appearance: pt wearing casual clothing, fair hygiene, in NAD Behavior: withdrawn lying in bed Psychomotor: no agitation or retardation noted Speech: mumbled difficult to understand Delusions: pt guarded and suspicious of staff and her daughter, paranoid ideas Alert, oriented to place, month, date but not situation VH/AH: pt talking to who is not there nor he exists. SI: denies HI: denies Mood: good Affect: flat when seen Insight/judgment: impaired x 2. although improving Diagnostics Vital Signs (24Hr): Vital Signs - 24 hr 11/01/22 06:00 11/01/22 18:00 Temperature 96.8 F 97.4 F Pulse Rate 85 88 Respiratory Rate 16 14 Blood Pressure 127/57 L 154/71 H Pulse Oximetry 97 97 Oxygen Delivery Method Room Air Room Air BMI result Body Mass Index 29.9 Labs 10/25/22 08:09 10/25/22 08:09 Medications Medications Current Medications Acetaminophen (Acetaminophen 325 Mg Tablet) 650 mg PO Q6H PRN PRN Reason: Headache/Pain Mild Scale (1-3) Al Hydroxide/Mg Hydroxide (Magnesium Hydrox/Alum Hydrox 30 Ml Oral.Susp) 30 ml PO Q6H PRN PRN Reason: Heartburn/Nausea Aspirin (Aspirin 81 Mg Tab.Chew) 81 mg PO DAILY [facility] Last Admin: 11/01/22 09:01 Dose: Not Given Atorvastatin Calcium (Atorvastatin Calcium 20 Mg Tablet) 20 mg PO BEDTIME [facility] Last Admin: 11/01/22 21:08 Dose: Not Given Haloperidol (Haloperidol 5 Mg Tablet) 5 mg PO BID [facility] Last Admin: 11/01/22 21:09 Dose: Not Given Hydroxyzine HCl (Hydroxyzine Hcl 25 Mg Tablet) 25 mg PO Q6H PRN PRN Reason: Anxiety Lidocaine (Lidocaine 4 % Patch Adh..Patch) 2 patch TRANSDERMA DAILY [facility]; Protocol Last Admin: 11/01/22 09:02 Dose: Not Given Magnesium Hydroxide (Milk Of Magnesia 30 Ml Oral.Susp) 30 ml PO DAILY PRN PRN Reason: Constipation Olanzapine (Olanzapine Odt 10 Mg Tab.Rapdis) 10 mg TRANSLINGU Q6H PRN PRN Reason: agitation Last Admin: 10/31/22 14:30 Dose: 10 mg Senna/Docusate Sodium (Sennosides/Docusate Sodium Tablet) 1 tab PO BID [facility] Last Admin: 11/01/22 21:09 Dose: Not Given Trazodone HCl (Trazodone Hcl 50 Mg Tablet) 50 mg PO BEDTIME PRN PRN Reason: Insomnia Last Admin: 10/30/22 23:22 Dose: 50 mg Allergies Allergies Allergy/AdvReac Type Severity Reaction Status Date / Time No Known Allergies Allergy Verified 10/24/22 13:55 Assessment & Plan Assessment & Plan (1) Schizophrenia, paranoid, chronic with acute exacerbation: Status: Acute Code(s): F20.0 - Paranoid schizophrenia Plan Mrs. Sahni is a 77 year-old [place] woman who apparently has long hx of paranoia/psychosis large untreated for decades until 2019 when she presented with increase combative behaviors secondary to paranoid, psychosis. She had been admitted to [facility] in 2019 and given Invega sustenna per records with good effect. Per daughter she has not been on antipsychotics since she was discharged from the hospital. Pt was given Invega Sustenna 117.5mg IM on 10/16/22 at [place] while waiting for psychiatric bed to come. Pt does not appear to have capacity to make medical decisions at this time. Daughter is healthcare proxy, which has been invoked. PLAN 10/27 Continue tx including haldol 2.5mg po BID. Pt received last Invega Sustenna 117 mg IM on 10/16, declines second loading FIGUEROA of invega at this point. 10/28 continue tx. 10/29 continue tx. 10/30 increase haldol to 3mg po BID 10/31 increase haldol to 5mg po BID as it is less pills per pt request and fact that she continues to present floridly psychotic. 11/01/22 cont plan of care Reason for contiued inpatient stay Substantial Risk for: inability to function and rapid decompensation Time Spent With Patient Time: Total time managing care of this patient today ____ minutes.
[2022-11-02 06:00] VITALS: BP 153/66; PULSE 88; RESP 17; TEMP 36.4; O2SAT 97
[2022-11-02] MEDS: Magnesium Hydrox/Alum Hydrox 30 ML ORAL.SUSP PO (06:17)
[2022-11-02 07:00] VITALS: BMI 26.0
[2022-11-02] MEDS: Aspirin 81 MG TAB.CHEW PO (08:46)
[2022-11-02] MEDS: Sennosides/Docusate Sodium TABLET 1 TAB PO (08:47)
[2022-11-02] MEDS: Lidocaine 4 % Patch ADH..PATCH 2 PATCH TRANSDERMA (08:47)
[2022-11-02] MEDS: HaloperidoL 5 MG TABLET PO (08:47)
[2022-11-02 16:35] VITALS: RESP 17
[2022-11-02] MEDS: LORazepam 2 MG/ML VIAL IM (23:57)
[2022-11-02] MEDS: OLANZapine 10 MG VIAL IM (23:58)
--- NOTE | 2022-11-03 00:36 | PC.NURSE ---
Pt loudly self-dialoguing in room and began throwing thing in the mack. She was unable to be redirected and began posturing at staff. She was offered alternate activities, PRN medication, 1:1 support from staff, food and drink with no effect. She then began attempting to barricade the door to her room with roommate inside. Staff entered the room and pt put hands on staff pushing them. Security was call and medication ordered obtained. At 0000 pt was given Zyprexa 10mg IM and Ativan 2mg IM, staff putting pt in a physical hold to safely administered medications. Pt released at 0002 and monitored by staff, she declined all VS.
--- NOTE | 2022-11-03 08:29 | P.PNPSI_ITS ---
Subjective Subjective Date of Service: 11/02/22 Reason For Visit: F03.90 F03.9 Subjective Notes: 3 Day Interim History: Pt slept through the night. Pt reports feeling good. She denies SI/HI. She asks when can she go home, somewhat agitated when told that team feels she needs to be here longer for treatment and may petition court for involuntary treatment. Per nursing, pt taking medications, mostly in room, self dialoguing with whom pt identifies as her . Review of Systems Review of Systems Yes Unobtainable due to mental status Mental Status Exam Mental Status Exam Narrative: Appearance: pt wearing casual clothing, fair hygiene, in NAD Behavior: withdrawn lying in bed Psychomotor: no agitation or retardation noted Speech: mumbled difficult to understand Delusions: pt guarded and suspicious of staff and her daughter, paranoid ideas Alert, oriented to place, month, date but not situation VH/AH: pt talking to who is not there nor he exists. SI: denies HI: denies Mood: good Affect: flat when seen Insight/judgment: impaired x 2. although improving Diagnostics Vital Signs (24Hr): Vital Signs - 24 hr 11/02/22 16:35 Respiratory Rate 17 BMI result Body Mass Index 26.0 Labs 10/25/22 08:09 10/25/22 08:09 Medications Medications Current Medications Acetaminophen (Acetaminophen 325 Mg Tablet) 650 mg PO Q6H PRN PRN Reason: Headache/Pain Mild Scale (1-3) Al Hydroxide/Mg Hydroxide (Magnesium Hydrox/Alum Hydrox 30 Ml Oral.Susp) 30 ml PO Q6H PRN PRN Reason: Heartburn/Nausea Last Admin: 11/02/22 06:17 Dose: 30 ml Aspirin (Aspirin 81 Mg Tab.Chew) 81 mg PO DAILY [facility] Last Admin: 11/02/22 08:46 Dose: 81 mg Atorvastatin Calcium (Atorvastatin Calcium 20 Mg Tablet) 20 mg PO BEDTIME [facility] Last Admin: 11/02/22 20:44 Dose: Not Given Haloperidol (Haloperidol 5 Mg Tablet) 5 mg PO BID [facility] Last Admin: 11/02/22 20:44 Dose: Not Given Hydroxyzine HCl (Hydroxyzine Hcl 25 Mg Tablet) 25 mg PO Q6H PRN PRN Reason: Anxiety Lidocaine (Lidocaine 4 % Patch Adh..Patch) 2 patch TRANSDERMA DAILY [facility]; Protocol Last Admin: 11/02/22 08:47 Dose: 2 patch Magnesium Hydroxide (Milk Of Magnesia 30 Ml Oral.Susp) 30 ml PO DAILY PRN PRN Reason: Constipation Olanzapine (Olanzapine Odt 10 Mg Tab.Rapdis) 10 mg TRANSLINGU Q6H PRN PRN Reason: agitation Last Admin: 10/31/22 14:30 Dose: 10 mg Senna/Docusate Sodium (Sennosides/Docusate Sodium Tablet) 1 tab PO BID [facility] Last Admin: 11/02/22 20:44 Dose: Not Given Trazodone HCl (Trazodone Hcl 50 Mg Tablet) 50 mg PO BEDTIME PRN PRN Reason: Insomnia Last Admin: 10/30/22 23:22 Dose: 50 mg Allergies Allergies Allergy/AdvReac Type Severity Reaction Status Date / Time No Known Allergies Allergy Verified 10/24/22 13:55 Assessment & Plan Assessment & Plan (1) Schizophrenia, paranoid, chronic with acute exacerbation: Status: Acute Code(s): F20.0 - Paranoid schizophrenia Plan Mrs. Sahni is a 77 year-old [place] woman who apparently has long hx of paranoia/psychosis large untreated for decades until 2019 when she presented with increase combative behaviors secondary to paranoid, psychosis. She had been admitted to [facility] in 2019 and given Invega sustenna per records with good effect. Per daughter she has not been on antipsychotics since she was discharged from the hospital. Pt was given Invega Sustenna 117.5mg IM on 10/16/22 at [place] while waiting for psychiatric bed to come. Pt does not appear to have capacity to make medical decisions at this time. Daughter is healthcare proxy, which has been invoked. PLAN 10/27 Continue tx including haldol 2.5mg po BID. Pt received last Invega Sustenna 117 mg IM on 10/16, declines second loading FIGUEROA of invega at this point. 10/28 continue tx. 10/29 continue tx. 10/30 increase haldol to 3mg po BID 10/31 increase haldol to 5mg po BID as it is less pills per pt request and fact that she continues to present floridly psychotic. 11/01/22 cont plan of care 11/02 continue tx. Reason for contiued inpatient stay Substantial Risk for: inability to function Time Spent With Patient Time: Total time managing care of this patient today ____ minutes.
--- NOTE | 2022-11-03 11:54 | P.PNPSI_ITS ---
Subjective Subjective Date of Service: 11/03/22 Reason For Visit: F03.90 F03.9 Subjective Notes: Section 7 Interim History: Pt was agitated and combative last night, asking to leave the hospital, not responding to redirection, requiring IM medication. Pt today presents as somnolent. She is trying to stay in chair close to exit. Tried to redirect pt to her room to sleep but pt declined. Pt continues with delusions of having , daughter stealing from her and limited to no insight into psychiatric symptoms and need for treatment. Medication Compliance: Intermittent Side effects from medications: No Diagnostics Vital Signs (24Hr): Vital Signs - 24 hr 11/02/22 16:35 Respiratory Rate 17 BMI result Body Mass Index 26.0 Labs 10/25/22 08:09 10/25/22 08:09 Medications Medications Current Medications Acetaminophen (Acetaminophen 325 Mg Tablet) 650 mg PO Q6H PRN PRN Reason: Headache/Pain Mild Scale (1-3) Al Hydroxide/Mg Hydroxide (Magnesium Hydrox/Alum Hydrox 30 Ml Oral.Susp) 30 ml PO Q6H PRN PRN Reason: Heartburn/Nausea Last Admin: 11/02/22 06:17 Dose: 30 ml Aspirin (Aspirin 81 Mg Tab.Chew) 81 mg PO DAILY [facility] Last Admin: 11/03/22 10:11 Dose: Not Given Atorvastatin Calcium (Atorvastatin Calcium 20 Mg Tablet) 20 mg PO BEDTIME [facility] Last Admin: 11/02/22 20:44 Dose: Not Given Haloperidol (Haloperidol 5 Mg Tablet) 5 mg PO BID [facility] Last Admin: 11/03/22 10:11 Dose: Not Given Hydroxyzine HCl (Hydroxyzine Hcl 25 Mg Tablet) 25 mg PO Q6H PRN PRN Reason: Anxiety Lidocaine (Lidocaine 4 % Patch Adh..Patch) 2 patch TRANSDERMA DAILY [facility]; Protocol Last Admin: 11/03/22 10:11 Dose: Not Given Magnesium Hydroxide (Milk Of Magnesia 30 Ml Oral.Susp) 30 ml PO DAILY PRN PRN Reason: Constipation Olanzapine (Olanzapine Odt 10 Mg Tab.Rapdis) 10 mg TRANSLINGU Q6H PRN PRN Reason: agitation Last Admin: 10/31/22 14:30 Dose: 10 mg Senna/Docusate Sodium (Sennosides/Docusate Sodium Tablet) 1 tab PO BID [facility] Last Admin: 11/03/22 10:11 Dose: Not Given Trazodone HCl (Trazodone Hcl 50 Mg Tablet) 50 mg PO BEDTIME PRN PRN Reason: Insomnia Last Admin: 10/30/22 23:22 Dose: 50 mg Allergies Allergies Allergy/AdvReac Type Severity Reaction Status Date / Time No Known Allergies Allergy Verified 10/24/22 13:55 Assessment & Plan Assessment & Plan (1) Schizophrenia, paranoid, chronic with acute exacerbation: Status: Acute Code(s): F20.0 - Paranoid schizophrenia Plan Mrs. Sahni is a 77 year-old [place] woman who apparently has long hx of paranoia/psychosis large untreated for decades until 2019 when she presented with increase combative behaviors secondary to paranoid, psychosis. She had been admitted to [facility] in 2019 and given Invega sustenna per records with good effect. Per daughter she has not been on antipsychotics since she was discharged from the hospital. Pt was given Invega Sustenna 117.5mg IM on 10/16/22 at [place] while waiting for psychiatric bed to come. Pt does not appear to have capacity to make medical decisions at this time. Daughter is healthcare proxy, which has been invoked. PLAN 10/27 Continue tx including haldol 2.5mg po BID. Pt received last Invega Sustenna 117 mg IM on 10/16, declines second loading FIGUEROA of invega at this point. 10/28 continue tx. 10/29 continue tx. 10/30 increase haldol to 3mg po BID 10/31 increase haldol to 5mg po BID as it is less pills per pt request and fact that she continues to present floridly psychotic. 11/01/22 cont plan of care 11/02 continue tx. 11/03 petition for involuntary commitment sent to court. Pt on sect 7. Reason for contiued inpatient stay Substantial Risk for: harm to others and inability to function Time Spent With Patient Time: Total time managing care of this patient today ____ minutes.
[2022-11-03 18:00] VITALS: RESP 16
[2022-11-03] MEDS: Sennosides/Docusate Sodium TABLET 1 TAB PO (20:23)
[2022-11-03] MEDS: HaloperidoL 5 MG TABLET PO (20:23)
[2022-11-03] MEDS: Atorvastatin Calcium 20 MG TABLET PO (20:23)
[2022-11-04 06:00] VITALS: BP 119/58; PULSE 84; RESP 16; TEMP 36.6; O2SAT 94
[2022-11-04] MEDS: Sennosides/Docusate Sodium TABLET 1 TAB PO (08:26)
[2022-11-04] MEDS: Aspirin 81 MG TAB.CHEW PO (08:26)
[2022-11-04] MEDS: HaloperidoL 5 MG TABLET PO (08:26)
--- NOTE | 2022-11-04 15:34 | HO.PSYCHPN ---
Subjective Subjective Date of Service: 11/04/22 Reason For Visit: F03.90 F03.9 Interim History: Met with patient; reviewed chart; discussed with team; review chart Patient sitting quietly in the day room on approach. Patient's 1st question is when can she go home. Electrical Project Manager tried to educate patient on process of discharge however she does repeated when can I go? She says she has nothing to do here and at home she has a daughter. Electrical Project Manager did tried to explain further but she just said I am leaving and looked away. Staff reports patient was intensely exit seeking yesterday however today she has been in good behavioral control. Mental Status Exam Mental Status Exam Narrative: Appearance: pt wearing casual clothing, well groomed Behavior: Calm though a little guarded Psychomotor: no agitation or retardation noted Speech: Spontaneous; strong [place] dialect making her a little hard to understand VH/AH; delusions: pt talking to who is not there and reportedly does not exists. SI: denies HI: denies Mood: When can I go Affect: Constricted Insight/judgment: impaired Diagnostics Vital Signs (24Hr): Vital Signs - 24 hr 11/03/22 18:00 11/04/22 06:00 Temperature 97.8 F Pulse Rate 84 Respiratory Rate 16 16 Blood Pressure 119/58 L Pulse Oximetry 94 Oxygen Delivery Method Room Air BMI result Body Mass Index 26.0 Labs 10/25/22 08:09 10/25/22 08:09 Medications Medications Current Medications Acetaminophen (Acetaminophen 325 Mg Tablet) 650 mg PO Q6H PRN PRN Reason: Headache/Pain Mild Scale (1-3) Al Hydroxide/Mg Hydroxide (Magnesium Hydrox/Alum Hydrox 30 Ml Oral.Susp) 30 ml PO Q6H PRN PRN Reason: Heartburn/Nausea Last Admin: 11/02/22 06:17 Dose: 30 ml Aspirin (Aspirin 81 Mg Tab.Chew) 81 mg PO DAILY [facility] Last Admin: 11/04/22 08:26 Dose: 81 mg Atorvastatin Calcium (Atorvastatin Calcium 20 Mg Tablet) 20 mg PO BEDTIME [facility] Last Admin: 11/03/22 20:23 Dose: 20 mg Haloperidol (Haloperidol 5 Mg Tablet) 5 mg PO BID [facility] Last Admin: 11/04/22 08:26 Dose: 5 mg Hydroxyzine HCl (Hydroxyzine Hcl 25 Mg Tablet) 25 mg PO Q6H PRN PRN Reason: Anxiety Lidocaine (Lidocaine 4 % Patch Adh..Patch) 2 patch TRANSDERMA DAILY [facility]; Protocol Last Admin: 11/04/22 11:22 Dose: Not Given Magnesium Hydroxide (Milk Of Magnesia 30 Ml Oral.Susp) 30 ml PO DAILY PRN PRN Reason: Constipation Olanzapine (Olanzapine Odt 10 Mg Tab.Rapdis) 10 mg TRANSLINGU Q6H PRN PRN Reason: agitation Last Admin: 10/31/22 14:30 Dose: 10 mg Senna/Docusate Sodium (Sennosides/Docusate Sodium Tablet) 1 tab PO BID [facility] Last Admin: 11/04/22 08:26 Dose: 1 tab Trazodone HCl (Trazodone Hcl 50 Mg Tablet) 50 mg PO BEDTIME PRN PRN Reason: Insomnia Last Admin: 10/30/22 23:22 Dose: 50 mg Allergies Allergies Allergy/AdvReac Type Severity Reaction Status Date / Time No Known Allergies Allergy Verified 10/24/22 13:55 Assessment & Plan Assessment & Plan (1) Schizophrenia, paranoid, chronic with acute exacerbation: Status: Acute Code(s): F20.0 - Paranoid schizophrenia Plan Mrs. Sahni is a 77 year-old [place] woman who apparently has long hx of paranoia/psychosis large untreated for decades until 2019 when she presented with increase combative behaviors secondary to paranoid, psychosis. She had been admitted to [facility] in 2019 and given Invega sustenna per records with good effect. Per daughter she has not been on antipsychotics since she was discharged from the hospital. Pt was given Invega Sustenna 117.5mg IM on 10/16/22 at [place] while waiting for psychiatric bed to come. Pt does not appear to have capacity to make medical decisions at this time. Daughter is healthcare proxy, which has been invoked. PLAN 10/27 Continue tx including haldol 2.5mg po BID. Pt received last Invega Sustenna 117 mg IM on 10/16, declines second loading FIGUEROA of invega at this point. 10/28 continue tx. 10/29 continue tx. 10/30 increase haldol to 3mg po BID 10/31 increase haldol to 5mg po BID as it is less pills per pt request and fact that she continues to present floridly psychotic. 11/01/22 cont plan of care 11/02 continue tx. 11/03 petition for involuntary commitment sent to court. Pt on sect 7. 11/04 remains focused on discharge and otherwise difficult with which to engage; continue current treatment plan, though has been refusing medications Patient educated on: diagnosis Informed Consent: does not understand Reason for contiued inpatient stay Substantial Risk for: inability to function Time Spent With Patient Time: Total time managing care of this patient today ____ minutes.
[2022-11-04 18:00] VITALS: BP 138/63; PULSE 97; RESP 16; TEMP 36; O2SAT 98
[2022-11-05 08:00] VITALS: BP 132/89; PULSE 90; RESP 16; TEMP 36.2; O2SAT 96
[2022-11-05] MEDS: HaloperidoL 5 MG TABLET PO ×2 (08:20→21:37)
[2022-11-05] MEDS: Aspirin 81 MG TAB.CHEW PO (08:20)
[2022-11-05] MEDS: Sennosides/Docusate Sodium TABLET 1 TAB PO (08:21)
[2022-11-05 18:00] VITALS: BP 185/118; PULSE 85; RESP 16; TEMP 36.1; O2SAT 97
[2022-11-05] MEDS: Atorvastatin Calcium 20 MG TABLET PO (21:37)
[2022-11-05] MEDS: traZODone HCL 50 MG TABLET PO (21:37)
[2022-11-05] MEDS: cloNIDine HCL 0.1 MG TABLET PO ×2 (22:21→23:59)
[2022-11-05 23:09] VITALS: BP 183/79; PULSE 89
--- NOTE | 2022-11-06 09:59 | HO.PSYCHPN ---
Subjective Subjective Date of Service: 11/05/22 Reason For Visit: F03.90 F03.9 Interim History: late entry note for pt seen on 11/05/22 briefly met with patient who remains focused on when she will be discharged; unable to engage in meaningful conversation about admission/discharge; staff reports pt missing her estranged and tearful today Mental Status Exam Mental Status Exam Narrative: Appearance: pt wearing casual clothing, well groomed Behavior: Calm though a little guarded Psychomotor: no agitation or retardation noted Speech: Spontaneous; strong [place] dialect making her a little hard to understand VH/AH; delusions: pt talking to (who her). SI: denies HI: denies Mood: When can I go Affect: Constricted Insight/judgment: impaired Diagnostics Vital Signs (24Hr): Vital Signs - 24 hr 11/05/22 18:00 11/05/22 23:09 Temperature 97 F Pulse Rate 85 89 Respiratory Rate 16 Blood Pressure 185/118 H 183/79 H Pulse Oximetry 97 Oxygen Delivery Method Room Air Room Air BMI result Body Mass Index 26.0 Labs 10/25/22 08:09 10/25/22 08:09 Medications Medications Current Medications Acetaminophen (Acetaminophen 325 Mg Tablet) 650 mg PO Q6H PRN PRN Reason: Headache/Pain Mild Scale (1-3) Al Hydroxide/Mg Hydroxide (Magnesium Hydrox/Alum Hydrox 30 Ml Oral.Susp) 30 ml PO Q6H PRN PRN Reason: Heartburn/Nausea Last Admin: 11/02/22 06:17 Dose: 30 ml Aspirin (Aspirin 81 Mg Tab.Chew) 81 mg PO DAILY [facility] Last Admin: 11/05/22 08:20 Dose: 81 mg Atorvastatin Calcium (Atorvastatin Calcium 20 Mg Tablet) 20 mg PO BEDTIME [facility] Last Admin: 11/05/22 21:37 Dose: 20 mg Haloperidol (Haloperidol 5 Mg Tablet) 5 mg PO BID [facility] Last Admin: 11/05/22 21:37 Dose: 5 mg Hydroxyzine HCl (Hydroxyzine Hcl 25 Mg Tablet) 25 mg PO Q6H PRN PRN Reason: Anxiety Lidocaine (Lidocaine 4 % Patch Adh..Patch) 2 patch TRANSDERMA DAILY [facility]; Protocol Last Admin: 11/05/22 08:28 Dose: Not Given Magnesium Hydroxide (Milk Of Magnesia 30 Ml Oral.Susp) 30 ml PO DAILY PRN PRN Reason: Constipation Olanzapine (Olanzapine Odt 10 Mg Tab.Rapdis) 10 mg TRANSLINGU Q6H PRN PRN Reason: agitation Last Admin: 10/31/22 14:30 Dose: 10 mg Senna/Docusate Sodium (Sennosides/Docusate Sodium Tablet) 1 tab PO BID [facility] Last Admin: 11/05/22 21:41 Dose: Not Given Trazodone HCl (Trazodone Hcl 50 Mg Tablet) 50 mg PO BEDTIME PRN PRN Reason: Insomnia Last Admin: 11/05/22 21:37 Dose: 50 mg Allergies Allergies Allergy/AdvReac Type Severity Reaction Status Date / Time No Known Allergies Allergy Verified 10/24/22 13:55 Assessment & Plan Assessment & Plan (1) Schizophrenia, paranoid, chronic with acute exacerbation: Status: Acute Code(s): F20.0 - Paranoid schizophrenia Plan Mrs. Sahni is a 77 year-old [place] woman who apparently has long hx of paranoia/psychosis large untreated for decades until 2019 when she presented with increase combative behaviors secondary to paranoid, psychosis. She had been admitted to [facility] in 2019 and given Invega sustenna per records with good effect. Per daughter she has not been on antipsychotics since she was discharged from the hospital. Pt was given Invega Sustenna 117.5mg IM on 10/16/22 at [place] while waiting for psychiatric bed to come. Pt does not appear to have capacity to make medical decisions at this time. Daughter is healthcare proxy, which has been invoked. PLAN 10/27 Continue tx including haldol 2.5mg po BID. Pt received last Invega Sustenna 117 mg IM on 10/16, declines second loading FIGUEROA of invega at this point. 10/28 continue tx. 10/29 continue tx. 10/30 increase haldol to 3mg po BID 10/31 increase haldol to 5mg po BID as it is less pills per pt request and fact that she continues to present floridly psychotic. 11/01/22 cont plan of care 11/02 continue tx. 11/03 petition for involuntary commitment sent to court. Pt on sect 7. 11/04 remains focused on discharge and otherwise difficult with which to engage; continue current treatment plan, though has been refusing medications 11/05 continue current tx plan Reason for contiued inpatient stay Substantial Risk for: inability to function Time Spent With Patient Time: Total time managing care of this patient today ____ minutes.
[2022-11-06] MEDS: Lidocaine 4 % Patch ADH..PATCH 2 PATCH TRANSDERMA (10:05)
[2022-11-06] MEDS: Sennosides/Docusate Sodium TABLET 1 TAB PO ×2 (10:05→20:47)
[2022-11-06] MEDS: Aspirin 81 MG TAB.CHEW PO (10:05)
[2022-11-06] MEDS: HaloperidoL 5 MG TABLET PO ×2 (10:05→20:47)
--- NOTE | 2022-11-06 13:20 | HO.PSYCHPN ---
Subjective Subjective Date of Service: 11/06/22 Reason For Visit: F03.90 F03.9 Subjective Notes: Conditional Voluntary Interim History: The nursing staff reported that she refused her clonidine today in the morning and her blood pressure was high. She had been compliant and she had been self dialogue in. On interview the patient looks internally preoccupied. Mental Status Exam Mental Status Exam Patient Appearance: Well Grooomed and Appropriate Patient Orientation: Person and Situation Level of Consciousness: Awake Patient Behavior: Guarded and Passive Mood Description: Withdrawn Affect Description: Blunted Patient Cognition Impaired: Yes Ability to Follow Directions: Good Speech Pattern: Clear Hallucinations: Auditory Delusions: Paranoid Ideation Thought Content: positive for [place], positive for [place] and positive for Poverty of Content Judgement: Fair Diagnostics Vital Signs (24Hr): Vital Signs - 24 hr 11/05/22 18:00 11/05/22 23:09 Temperature 97 F Pulse Rate 85 89 Respiratory Rate 16 Blood Pressure 185/118 H 183/79 H Pulse Oximetry 97 Oxygen Delivery Method Room Air Room Air BMI result Body Mass Index 26.0 Labs 10/25/22 08:09 10/25/22 08:09 Medications Medications Current Medications Acetaminophen (Acetaminophen 325 Mg Tablet) 650 mg PO Q6H PRN PRN Reason: Headache/Pain Mild Scale (1-3) Al Hydroxide/Mg Hydroxide (Magnesium Hydrox/Alum Hydrox 30 Ml Oral.Susp) 30 ml PO Q6H PRN PRN Reason: Heartburn/Nausea Last Admin: 11/02/22 06:17 Dose: 30 ml Aspirin (Aspirin 81 Mg Tab.Chew) 81 mg PO DAILY [facility] Last Admin: 11/06/22 10:05 Dose: 81 mg Atorvastatin Calcium (Atorvastatin Calcium 20 Mg Tablet) 20 mg PO BEDTIME [facility] Last Admin: 11/05/22 21:37 Dose: 20 mg Haloperidol (Haloperidol 5 Mg Tablet) 5 mg PO BID [facility] Last Admin: 11/06/22 10:05 Dose: 5 mg Hydroxyzine HCl (Hydroxyzine Hcl 25 Mg Tablet) 25 mg PO Q6H PRN PRN Reason: Anxiety Lidocaine (Lidocaine 4 % Patch Adh..Patch) 2 patch TRANSDERMA DAILY [facility]; Protocol Last Admin: 11/06/22 10:05 Dose: 2 patch Magnesium Hydroxide (Milk Of Magnesia 30 Ml Oral.Susp) 30 ml PO DAILY PRN PRN Reason: Constipation Olanzapine (Olanzapine Odt 10 Mg Tab.Rapdis) 10 mg TRANSLINGU Q6H PRN PRN Reason: agitation Last Admin: 10/31/22 14:30 Dose: 10 mg Senna/Docusate Sodium (Sennosides/Docusate Sodium Tablet) 1 tab PO BID [facility] Last Admin: 11/06/22 10:05 Dose: 1 tab Trazodone HCl (Trazodone Hcl 50 Mg Tablet) 50 mg PO BEDTIME PRN PRN Reason: Insomnia Last Admin: 11/05/22 21:37 Dose: 50 mg Allergies Allergies Allergy/AdvReac Type Severity Reaction Status Date / Time No Known Allergies Allergy Verified 10/24/22 13:55 Assessment & Plan Assessment & Plan (1) Schizophrenia, paranoid, chronic with acute exacerbation: Status: Acute Code(s): F20.0 - Paranoid schizophrenia Plan Mrs. Sahni is a 77 year-old Lao woman who apparently has long hx of paranoia/psychosis large untreated for decades until 2019 when she presented with increase combative behaviors secondary to paranoid, psychosis. She had been admitted to [facility] in 2019 and given Invega sustenna per records with good effect. Per daughter she has not been on antipsychotics since she was discharged from the hospital. Pt was given Invega Sustenna 117.5mg IM on 10/16/22 at [place] while waiting for psychiatric bed to come. Pt does not appear to have capacity to make medical decisions at this time. Daughter is healthcare proxy, which has been invoked. PLAN 10/27 Continue tx including haldol 2.5mg po BID. Pt received last Invega Sustenna 117 mg IM on 10/16, declines second loading FIGUEROA of invega at this point. 10/28 continue tx. 10/29 continue tx. 10/30 increase haldol to 3mg po BID 10/31 increase haldol to 5mg po BID as it is less pills per pt request and fact that she continues to present floridly psychotic. 11/01/22 cont plan of care 11/02 continue tx. 11/03 petition for involuntary commitment sent to court. Pt on sect 7. 11/04 remains focused on discharge and otherwise difficult with which to engage; continue current treatment plan, though has been refusing medications 11/05 continue current tx plan 11/06 continue same treatment Reason for contiued inpatient stay Substantial Risk for: inability to function, rapid decompensation and med/psych decompensation Time Spent With Patient Time: Total time managing care of this patient today _20___ minutes.
[2022-11-06 18:00] VITALS: BP 118/56; PULSE 76; RESP 18; TEMP 36.8; O2SAT 97
--- NOTE | 2022-11-06 20:20 | PC.NURSE ---
Patient had some trouble using [place]ley interpretter today, Rossy Stallings interpretter Gayle ([id number]) was not interpretting as much information as the SW was trying to relate regaring HCP--Department lead notified. Patient's court appointed attorney law clerk was in to help explain, and Boy Perez interpretter on Dudley ([id number]) was very helpful, and patient was able to understand that dialogue. Says she does not want her daughter to be her HCP and that she is patient's enemy. Patient believes she owns a home that she bought with her and hopes to return to it upon discharge.
[2022-11-06] MEDS: Atorvastatin Calcium 20 MG TABLET PO (20:47)
[2022-11-07 09:26] VITALS: BP 120/62; PULSE 85; RESP 17; TEMP 35.9; O2SAT 97
[2022-11-07] MEDS: Aspirin 81 MG TAB.CHEW PO (09:27)
[2022-11-07] MEDS: Sennosides/Docusate Sodium TABLET 1 TAB PO (09:27)
[2022-11-07] MEDS: HaloperidoL 5 MG TABLET PO (09:27)
--- NOTE | 2022-11-07 16:58 | HO.PSYCHPN ---
Subjective Subjective Date of Service: 11/07/22 Reason For Visit: F03.90 F03.9 Subjective Notes: [place] Warning, Section 7 and Section 8 Interim History: The nursing staff reported that they found medications he did not, so the patient most likely she had been cheeking medications. The staff noticed that she slept well and she has been nonsensical. On interview the patient denies new symptoms refused to engage in the conversation. Today she met with her program technician with a highway maintenance crew worker. Mental Status Exam Mental Status Exam Patient Appearance: Appropriate Patient Orientation: Person Level of Consciousness: Awake Patient Behavior: Guarded and Suspicious Mood Description: Withdrawn Affect Description: Constricted Patient Cognition Impaired: Yes Ability to Follow Directions: Good Speech Pattern: Clear Hallucinations: None Delusions: Paranoid Ideation Thought Process: Illogical, Distracted and Slowed Thinking Thought Content: positive for [place] and positive for Disorganized Judgement: Poor Diagnostics Vital Signs (24Hr): Vital Signs - 24 hr 11/06/22 18:00 11/07/22 09:26 Temperature 98.2 F 96.6 F L Pulse Rate 76 85 Respiratory Rate 18 17 Blood Pressure 118/56 L 120/62 Pulse Oximetry 97 97 Oxygen Delivery Method Room Air Room Air BMI result Body Mass Index 26.0 Labs 10/25/22 08:09 10/25/22 08:09 Medications Medications Current Medications Acetaminophen (Acetaminophen 325 Mg Tablet) 650 mg PO Q6H PRN PRN Reason: Headache/Pain Mild Scale (1-3) Al Hydroxide/Mg Hydroxide (Magnesium Hydrox/Alum Hydrox 30 Ml Oral.Susp) 30 ml PO Q6H PRN PRN Reason: Heartburn/Nausea Last Admin: 11/02/22 06:17 Dose: 30 ml Aspirin (Aspirin 81 Mg Tab.Chew) 81 mg PO DAILY [facility] Last Admin: 11/07/22 09:27 Dose: 81 mg Atorvastatin Calcium (Atorvastatin Calcium 20 Mg Tablet) 20 mg PO BEDTIME [facility] Last Admin: 11/06/22 20:47 Dose: 20 mg Haloperidol (Haloperidol 5 Mg Tablet) 5 mg PO BID [facility] Last Admin: 11/07/22 09:27 Dose: 5 mg Hydroxyzine HCl (Hydroxyzine Hcl 25 Mg Tablet) 25 mg PO Q6H PRN PRN Reason: Anxiety Lidocaine (Lidocaine 4 % Patch Adh..Patch) 2 patch TRANSDERMA DAILY [facility]; Protocol Last Admin: 11/07/22 09:29 Dose: Not Given Magnesium Hydroxide (Milk Of Magnesia 30 Ml Oral.Susp) 30 ml PO DAILY PRN PRN Reason: Constipation Olanzapine (Olanzapine Odt 10 Mg Tab.Rapdis) 10 mg TRANSLINGU Q6H PRN PRN Reason: agitation Last Admin: 10/31/22 14:30 Dose: 10 mg Senna/Docusate Sodium (Sennosides/Docusate Sodium Tablet) 1 tab PO BID [facility] Last Admin: 11/07/22 09:27 Dose: 1 tab Trazodone HCl (Trazodone Hcl 50 Mg Tablet) 50 mg PO BEDTIME PRN PRN Reason: Insomnia Last Admin: 11/05/22 21:37 Dose: 50 mg Allergies Allergies Allergy/AdvReac Type Severity Reaction Status Date / Time No Known Allergies Allergy Verified 10/24/22 13:55 Assessment & Plan Assessment & Plan (1) Schizophrenia, paranoid, chronic with acute exacerbation: Status: Acute Code(s): F20.0 - Paranoid schizophrenia Plan Mrs. Sahni is a 77 year-old Ecuadorean woman who apparently has long hx of paranoia/psychosis large untreated for decades until 2019 when she presented with increase combative behaviors secondary to paranoid, psychosis. She had been admitted to [facility] in 2019 and given Invega sustenna per records with good effect. Per daughter she has not been on antipsychotics since she was discharged from the hospital. Pt was given Invega Sustenna 117.5mg IM on 10/16/22 at [place] while waiting for psychiatric bed to come. Pt does not appear to have capacity to make medical decisions at this time. Daughter is healthcare proxy, which has been invoked. PLAN 10/27 Continue tx including haldol 2.5mg po BID. Pt received last Invega Sustenna 117 mg IM on 10/16, declines second loading FIGUEROA of invega at this point. 10/28 continue tx. 10/29 continue tx. 10/30 increase haldol to 3mg po BID 10/31 increase haldol to 5mg po BID as it is less pills per pt request and fact that she continues to present floridly psychotic. 11/01/22 cont plan of care 11/02 continue tx. 11/03 petition for involuntary commitment sent to court. Pt on sect 7. 11/04 remains focused on discharge and otherwise difficult with which to engage; continue current treatment plan, though has been refusing medications 11/05 continue current tx plan 11/06 continue same treatment 11/07 continue same treatment Reason for contiued inpatient stay Substantial Risk for: inability to function, rapid decompensation and med/psych decompensation Time Spent With Patient Time: Total time managing care of this patient today __20__ minutes.
[2022-11-08 08:00] VITALS: BP 158/67; PULSE 78; RESP 18; TEMP 37; O2SAT 96
[2022-11-08] MEDS: Sennosides/Docusate Sodium TABLET 1 TAB PO (08:09)
[2022-11-08] MEDS: Aspirin 81 MG TAB.CHEW PO (08:09)
[2022-11-08] MEDS: HaloperidoL 5 MG TABLET PO (08:09)
--- NOTE | 2022-11-08 11:12 | P.PNPSI_ITS ---
Subjective Subjective Date of Service: 11/08/22 Reason For Visit: F03.90 F03.9 Subjective Notes: Section 7 Interim History: Pt reports she is sleeping better. She declined medications last night. He continues to present as guarded, pills found in her bag as she was checking them. Pt continues to present as paranoid, no insight into need for ongoing treatment. Medication Compliance: Intermittent Side effects from medications: Yes Diagnostics Vital Signs (24Hr): Vital Signs - 24 hr 11/08/22 08:00 Temperature 98.6 F Pulse Rate 78 Respiratory Rate 18 Blood Pressure 158/67 H Pulse Oximetry 96 Oxygen Delivery Method Room Air BMI result Body Mass Index 26.0 Labs 10/25/22 08:09 10/25/22 08:09 Medications Medications Current Medications Acetaminophen (Acetaminophen 325 Mg Tablet) 650 mg PO Q6H PRN PRN Reason: Headache/Pain Mild Scale (1-3) Al Hydroxide/Mg Hydroxide (Magnesium Hydrox/Alum Hydrox 30 Ml Oral.Susp) 30 ml PO Q6H PRN PRN Reason: Heartburn/Nausea Last Admin: 11/02/22 06:17 Dose: 30 ml Aspirin (Aspirin 81 Mg Tab.Chew) 81 mg PO DAILY [facility] Last Admin: 11/08/22 08:09 Dose: 81 mg Atorvastatin Calcium (Atorvastatin Calcium 20 Mg Tablet) 20 mg PO BEDTIME [facility] Last Admin: 11/07/22 20:22 Dose: Not Given Haloperidol (Haloperidol 5 Mg Tablet) 5 mg PO BID [facility] Last Admin: 11/08/22 08:09 Dose: 5 mg Hydroxyzine HCl (Hydroxyzine Hcl 25 Mg Tablet) 25 mg PO Q6H PRN PRN Reason: Anxiety Lidocaine (Lidocaine 4 % Patch Adh..Patch) 2 patch TRANSDERMA DAILY [facility]; Protocol Last Admin: 11/08/22 10:53 Dose: Not Given Magnesium Hydroxide (Milk Of Magnesia 30 Ml Oral.Susp) 30 ml PO DAILY PRN PRN Reason: Constipation Olanzapine (Olanzapine Odt 10 Mg Tab.Rapdis) 10 mg TRANSLINGU Q6H PRN PRN Reason: agitation Last Admin: 10/31/22 14:30 Dose: 10 mg Senna/Docusate Sodium (Sennosides/Docusate Sodium Tablet) 1 tab PO BID [facility] Last Admin: 11/08/22 08:09 Dose: 1 tab Trazodone HCl (Trazodone Hcl 50 Mg Tablet) 50 mg PO BEDTIME PRN PRN Reason: Insomnia Last Admin: 11/05/22 21:37 Dose: 50 mg Allergies Allergies Allergy/AdvReac Type Severity Reaction Status Date / Time No Known Allergies Allergy Verified 10/24/22 13:55 Assessment & Plan Assessment & Plan (1) Schizophrenia, paranoid, chronic with acute exacerbation: Status: Acute Code(s): F20.0 - Paranoid schizophrenia Plan Mrs. Sahni is a 77 year-old Wallisian woman who apparently has long hx of paranoia/psychosis large untreated for decades until 2019 when she presented with increase combative behaviors secondary to paranoid, psychosis. She had been admitted to [facility] in 2019 and given Invega sustenna per records with good effect. Per daughter she has not been on antipsychotics since she was discharged from the hospital. Pt was given Invega Sustenna 117.5mg IM on 10/16/22 at [place] while waiting for psychiatric bed to come. Pt does not appear to have capacity to make medical decisions at this time. Daughter is healthcare proxy, which has been invoked. PLAN 10/27 Continue tx including haldol 2.5mg po BID. Pt received last Invega Sustenna 117 mg IM on 10/16, declines second loading FIGUEROA of invega at this point. 10/28 continue tx. 10/29 continue tx. 10/30 increase haldol to 3mg po BID 10/31 increase haldol to 5mg po BID as it is less pills per pt request and fact that she continues to present floridly psychotic. 11/01/22 cont plan of care 11/02 continue tx. 11/03 petition for involuntary commitment sent to court. Pt on sect 7. 11/04 remains focused on discharge and otherwise difficult with which to engage; continue current treatment plan, though has been refusing medications 11/05 continue current tx plan 11/06 continue same treatment 11/07 continue same treatment 11/08 continue tx. Reason for contiued inpatient stay Substantial Risk for: inability to function Time Spent With Patient Time: Total time managing care of this patient today ____ minutes.
[2022-11-08 18:00] VITALS: BP 131/60; PULSE 70; RESP 16; TEMP 36.8; O2SAT 97
[2022-11-09 06:00] VITALS: BP 144/63; PULSE 81; RESP 18; TEMP 36.3; O2SAT 95
[2022-11-09 07:00] VITALS: BMI 26.3
[2022-11-09] MEDS: HaloperidoL 5 MG TABLET PO ×2 (08:51→17:53)
[2022-11-09] MEDS: Aspirin 81 MG TAB.CHEW PO (08:51)
[2022-11-09] MEDS: Sennosides/Docusate Sodium TABLET 1 TAB PO ×2 (08:51→17:53)
--- NOTE | 2022-11-09 09:40 | P.PNPSI_ITS ---
Subjective Subjective Date of Service: 11/09/22 Reason For Visit: F03.90 F03.9 Subjective Notes: Section 7 Interim History: Pt reports she has a but he is currently at [facility] picking up medications for her. Pt states that she has not talked with her today. Prior days pt has been self dialoguing to someone who is not there which pt reported it was her - long standing delusion that pt has had for years according to her daughter. Pt calmer, but suspicious as to why this fiction and nonfiction writer prose is asking about her and if someone had sent me to talk with her. Pt reports she is not sure if she still . She does not think she needs medications. She denies SI/HI. Per nursing, pt slept through the night. No need for IM in past 24hrs. Pt more visible, taking medications, on mouth checks as found to be cheeking medications and putting them in paper bag. She continues to present as paranoid towards daughter and thinks she is stealing from her. Medication Compliance: Intermittent Side effects from medications: Yes Review of Systems Review of Systems Yes Unobtainable due to mental status Mental Status Exam Mental Status Exam Narrative: Appearance: pt wearing casual clothing, well groomed Behavior: Calm though a little guarded Psychomotor: no agitation or retardation noted Speech: Spontaneous; strong [place] dialect making her a little hard to understand VH/AH; delusions: pt talking to (who her). SI: denies HI: denies Mood: When can I go Affect: Constricted Insight/judgment: impaired Diagnostics Vital Signs (24Hr): Vital Signs - 24 hr 11/08/22 18:00 Temperature 98.3 F Pulse Rate 70 Respiratory Rate 16 Blood Pressure 131/60 Pulse Oximetry 97 Oxygen Delivery Method Room Air BMI result Body Mass Index 26.0 Labs 10/25/22 08:09 10/25/22 08:09 Medications Medications Current Medications Acetaminophen (Acetaminophen 325 Mg Tablet) 650 mg PO Q6H PRN PRN Reason: Headache/Pain Mild Scale (1-3) Al Hydroxide/Mg Hydroxide (Magnesium Hydrox/Alum Hydrox 30 Ml Oral.Susp) 30 ml PO Q6H PRN PRN Reason: Heartburn/Nausea Last Admin: 11/02/22 06:17 Dose: 30 ml Aspirin (Aspirin 81 Mg Tab.Chew) 81 mg PO DAILY [facility] Last Admin: 11/09/22 08:51 Dose: 81 mg Atorvastatin Calcium (Atorvastatin Calcium 20 Mg Tablet) 20 mg PO BEDTIME [facility] Last Admin: 11/08/22 21:27 Dose: Not Given Haloperidol (Haloperidol 5 Mg Tablet) 5 mg PO BID [facility] Last Admin: 11/09/22 08:51 Dose: 5 mg Hydroxyzine HCl (Hydroxyzine Hcl 25 Mg Tablet) 25 mg PO Q6H PRN PRN Reason: Anxiety Lidocaine (Lidocaine 4 % Patch Adh..Patch) 2 patch TRANSDERMA DAILY [facility]; Protocol Last Admin: 11/09/22 08:54 Dose: Not Given Magnesium Hydroxide (Milk Of Magnesia 30 Ml Oral.Susp) 30 ml PO DAILY PRN PRN Reason: Constipation Olanzapine (Olanzapine Odt 10 Mg Tab.Rapdis) 10 mg TRANSLINGU Q6H PRN PRN Reason: agitation Last Admin: 10/31/22 14:30 Dose: 10 mg Senna/Docusate Sodium (Sennosides/Docusate Sodium Tablet) 1 tab PO BID [facility] Last Admin: 11/09/22 08:51 Dose: 1 tab Trazodone HCl (Trazodone Hcl 50 Mg Tablet) 50 mg PO BEDTIME PRN PRN Reason: Insomnia Last Admin: 11/05/22 21:37 Dose: 50 mg Allergies Allergies Allergy/AdvReac Type Severity Reaction Status Date / Time No Known Allergies Allergy Verified 10/24/22 13:55 Assessment & Plan Assessment & Plan (1) Schizophrenia, paranoid, chronic with acute exacerbation: Status: Acute Code(s): F20.0 - Paranoid schizophrenia Plan Mrs. Sahni is a 77 year-old Israeli woman who apparently has long hx of paranoia/psychosis large untreated for decades until 2019 when she presented with increase combative behaviors secondary to paranoid, psychosis. She had been admitted to [facility] in 2019 and given Invega sustenna per records with good effect. Per daughter she has not been on antipsychotics since she was discharged from the hospital. Pt was given Invega Sustenna 117.5mg IM on 10/16/22 at [place] while waiting for psychiatric bed to come. Pt does not appear to have capacity to make medical decisions at this time. Daughter is healthcare proxy, which has been invoked. PLAN 10/27 Continue tx including haldol 2.5mg po BID. Pt received last Invega Sustenna 117 mg IM on 10/16, declines second loading FIGUEROA of invega at this point. 10/28 continue tx. 10/29 continue tx. 10/30 increase haldol to 3mg po BID 10/31 increase haldol to 5mg po BID as it is less pills per pt request and fact that she continues to present floridly psychotic. 11/01/22 cont plan of care 11/02 continue tx. 11/03 petition for involuntary commitment sent to court. Pt on sect 7. 11/04 remains focused on discharge and otherwise difficult with which to engage; continue current treatment plan, though has been refusing medications 11/05 continue current tx plan 11/06 continue same treatment 11/07 continue same treatment 11/08 continue tx. 11/[address] hearing to affirm HCP scheduled for tomorrow. Reason for contiued inpatient stay Substantial Risk for: inability to function Time Spent With Patient Time: Total time managing care of this patient today ____ minutes.
[2022-11-09] MEDS: Atorvastatin Calcium 20 MG TABLET PO (17:55)
[2022-11-09 21:46] VITALS: BP 168/75; PULSE 77; RESP 18; TEMP 36.1; O2SAT 98
[2022-11-10 06:00] VITALS: BP 134/64; PULSE 72; RESP 16; TEMP 37; O2SAT 97
[2022-11-10] MEDS: Magnesium Hydrox/Alum Hydrox 30 ML ORAL.SUSP PO (09:54)
[2022-11-10] MEDS: HaloperidoL 5 MG TABLET PO (09:56)
[2022-11-10] MEDS: Aspirin 81 MG TAB.CHEW PO (09:57)
--- NOTE | 2022-11-10 14:28 | P.PNPSI_ITS ---
Subjective Subjective Date of Service: 11/10/22 Reason For Visit: F03.90 F03.9 Subjective Notes: Conditional Voluntary ( by healthcare proxy) Interim History: the nursing staff reported the patient has been calmer since Haldol had being started. Today we have deformation of the healthcare proxy the patient was verbally abusive against her daughter. The staff reported that she slept poorly last night but overall her irritability has improved. On interview the patient was selectively mute, internally preoccupied Mental Status Exam Mental Status Exam Patient Appearance: Disheveled and Unkempt Patient Orientation: Person and Situation Level of Consciousness: Awake Patient Behavior: Guarded and Passive Mood Description: Withdrawn Affect Description: Blunted and Angry Patient Cognition Impaired: Yes Ability to Follow Directions: Good Speech Pattern: Clear Hallucinations: Auditory Delusions: Paranoid Ideation Thought Process: Distracted and Evasive Thought Content: positive for [place], positive for Thought Blocking and positive for Disorganized Judgement: Poor Diagnostics Vital Signs (24Hr): Vital Signs - 24 hr 11/09/22 21:46 11/10/22 06:00 Temperature 96.9 F 98.6 F Pulse Rate 77 72 Respiratory Rate 18 16 Blood Pressure 168/75 H 134/64 Pulse Oximetry 98 97 Oxygen Delivery Method Room Air Room Air BMI result Body Mass Index 26.3 Labs 10/25/22 08:09 10/25/22 08:09 Medications Medications Current Medications Acetaminophen (Acetaminophen 325 Mg Tablet) 650 mg PO Q6H PRN PRN Reason: Headache/Pain Mild Scale (1-3) Al Hydroxide/Mg Hydroxide (Magnesium Hydrox/Alum Hydrox 30 Ml Oral.Susp) 30 ml PO Q6H PRN PRN Reason: Heartburn/Nausea Last Admin: 11/10/22 09:54 Dose: 30 ml Aspirin (Aspirin 81 Mg Tab.Chew) 81 mg PO DAILY [facility] Last Admin: 11/10/22 09:57 Dose: 81 mg Atorvastatin Calcium (Atorvastatin Calcium 20 Mg Tablet) 20 mg PO BEDTIME [facility] Last Admin: 11/09/22 18:04 Dose: Not Given Haloperidol (Haloperidol 5 Mg Tablet) 5 mg PO DAILY [facility] Last Admin: 11/10/22 09:56 Dose: 5 mg Haloperidol (Haloperidol 5 Mg Tablet) 5 mg PO BEDTIME [facility] Last Admin: 11/09/22 18:05 Dose: Not Given Hydroxyzine HCl (Hydroxyzine Hcl 25 Mg Tablet) 25 mg PO Q6H PRN PRN Reason: Anxiety Lidocaine (Lidocaine 4 % Patch Adh..Patch) 2 patch TRANSDERMA DAILY [facility]; Protocol Last Admin: 11/10/22 09:57 Dose: Not Given Magnesium Hydroxide (Milk Of Magnesia 30 Ml Oral.Susp) 30 ml PO DAILY PRN PRN Reason: Constipation Olanzapine (Olanzapine Odt 10 Mg Tab.Rapdis) 10 mg TRANSLINGU Q6H PRN PRN Reason: agitation Last Admin: 10/31/22 14:30 Dose: 10 mg Senna/Docusate Sodium (Sennosides/Docusate Sodium Tablet) 1 tab PO BEDTIME [facility] Last Admin: 11/09/22 18:05 Dose: Not Given Trazodone HCl (Trazodone Hcl 50 Mg Tablet) 50 mg PO BEDTIME PRN PRN Reason: Insomnia Last Admin: 11/05/22 21:37 Dose: 50 mg Allergies Allergies Allergy/AdvReac Type Severity Reaction Status Date / Time No Known Allergies Allergy Verified 10/24/22 13:55 Assessment & Plan Assessment & Plan (1) Schizophrenia, paranoid, chronic with acute exacerbation: Status: Acute Code(s): F20.0 - Paranoid schizophrenia Plan Mrs. Sahni is a 77 year-old Macanese woman who apparently has long hx of paranoia/psychosis large untreated for decades until 2019 when she presented with increase combative behaviors secondary to paranoid, psychosis. She had been admitted to [facility] in 2019 and given Invega sustenna per records with good effect. Per daughter she has not been on antipsychotics since she was discharged from the hospital. Pt was given Invega Sustenna 117.5mg IM on 10/16/22 at [place] while waiting for psychiatric bed to come. Pt does not appear to have capacity to make medical decisions at this time. Daughter is healthcare proxy, which has been invoked. PLAN 10/27 Continue tx including haldol 2.5mg po BID. Pt received last Invega Sustenna 117 mg IM on 10/16, declines second loading FIGUEROA of invega at this point. 10/28 continue tx. 10/29 continue tx. 10/30 increase haldol to 3mg po BID 10/31 increase haldol to 5mg po BID as it is less pills per pt request and fact that she continues to present floridly psychotic. 11/01/22 cont plan of care 11/02 continue tx. 11/03 petition for involuntary commitment sent to court. Pt on sect 7. 11/04 remains focused on discharge and otherwise difficult with which to engage; continue current treatment plan, though has been refusing medications 11/05 continue current tx plan 11/06 continue same treatment 11/07 continue same treatment 11/08 continue tx. 11/10 affirmation of healthcare proxy, continue with same medications Reason for continued inpatient stay Substantial Risk for: inability to function, rapid decompensation and med/psych decompensation Time Spent With Patient Time: Total time managing care of this patient today __20__ minutes.
--- NOTE | 2022-11-11 11:39 | HO.PSYCHPN ---
Subjective Subjective Date of Service: 11/11/22 Reason For Visit: F03.90 F03.9 Subjective Notes: Section 7 Healthcare Proxy: Yes Interim History: Patient has affirmed healthcare proxy intermittently refusing medication patient not overly agitated when seen Medication Compliance: Intermittent Mental Status Exam Mental Status Exam Patient Appearance: Disheveled Patient Orientation: Person and Situation Level of Consciousness: Awake Patient Behavior: Guarded and Passive Mood Description: Withdrawn Affect Description: Blunted and Angry Patient Cognition Impaired: Yes Ability to Follow Directions: Good Speech Pattern: Clear Hallucinations: Auditory Delusions: Paranoid Ideation Thought Process: Distracted and Evasive Thought Content: positive for [place], positive for Thought Blocking and positive for Disorganized Judgement: Poor Diagnostics Vital Signs (24Hr): BMI result Body Mass Index 26.3 Labs 10/25/22 08:09 10/25/22 08:09 Medications Medications Current Medications Acetaminophen (Acetaminophen 325 Mg Tablet) 650 mg PO Q6H PRN PRN Reason: Headache/Pain Mild Scale (1-3) Al Hydroxide/Mg Hydroxide (Magnesium Hydrox/Alum Hydrox 30 Ml Oral.Susp) 30 ml PO Q6H PRN PRN Reason: Heartburn/Nausea Last Admin: 11/10/22 09:54 Dose: 30 ml Aspirin (Aspirin 81 Mg Tab.Chew) 81 mg PO DAILY [facility] Last Admin: 11/11/22 10:08 Dose: Not Given Atorvastatin Calcium (Atorvastatin Calcium 20 Mg Tablet) 20 mg PO BEDTIME@1800 [facility] Last Admin: 11/10/22 19:23 Dose: Not Given Haloperidol (Haloperidol 5 Mg Tablet) 5 mg PO DAILY [facility] Last Admin: 11/11/22 10:09 Dose: Not Given Haloperidol (Haloperidol 5 Mg Tablet) 5 mg PO BEDTIME@1800 [facility] Last Admin: 11/10/22 19:23 Dose: Not Given Hydroxyzine HCl (Hydroxyzine Hcl 25 Mg Tablet) 25 mg PO Q6H PRN PRN Reason: Anxiety Lidocaine (Lidocaine 4 % Patch Adh..Patch) 2 patch TRANSDERMA DAILY [facility]; Protocol Last Admin: 11/11/22 09:41 Dose: Not Given Magnesium Hydroxide (Milk Of Magnesia 30 Ml Oral.Susp) 30 ml PO DAILY PRN PRN Reason: Constipation Olanzapine (Olanzapine Odt 10 Mg Tab.Rapdis) 10 mg TRANSLINGU Q6H PRN PRN Reason: agitation Last Admin: 10/31/22 14:30 Dose: 10 mg Senna/Docusate Sodium (Sennosides/Docusate Sodium Tablet) 1 tab PO BEDTIME@1800 [facility] Last Admin: 11/10/22 19:23 Dose: Not Given Trazodone HCl (Trazodone Hcl 50 Mg Tablet) 50 mg PO BEDTIME PRN PRN Reason: Insomnia Last Admin: 11/05/22 21:37 Dose: 50 mg Allergies Allergies Allergy/AdvReac Type Severity Reaction Status Date / Time No Known Allergies Allergy Verified 10/24/22 13:55 Assessment & Plan Assessment & Plan (1) Schizophrenia, paranoid, chronic with acute exacerbation: Status: Acute Code(s): F20.0 - Paranoid schizophrenia Plan Mrs. Sahni is a 77 year-old [place] woman who apparently has long hx of paranoia/psychosis large untreated for decades until 2019 when she presented with increase combative behaviors secondary to paranoid, psychosis. She had been admitted to [facility] in 2019 and given Invega sustenna per records with good effect. Per daughter she has not been on antipsychotics since she was discharged from the hospital. Pt was given Invega Sustenna 117.5mg IM on 10/16/22 at [place] while waiting for psychiatric bed to come. Pt does not appear to have capacity to make medical decisions at this time. Daughter is healthcare proxy, which has been invoked. PLAN 10/27 Continue tx including haldol 2.5mg po BID. Pt received last Invega Sustenna 117 mg IM on 10/16, declines second loading FIGUEROA of invega at this point. 10/28 continue tx. 10/29 continue tx. 10/30 increase haldol to 3mg po BID 10/31 increase haldol to 5mg po BID as it is less pills per pt request and fact that she continues to present floridly psychotic. 11/01/22 cont plan of care 11/02 continue tx. 11/03 petition for involuntary commitment sent to court. Pt on sect 7. 11/04 remains focused on discharge and otherwise difficult with which to engage; continue current treatment plan, though has been refusing medications 11/05 continue current tx plan 11/06 continue same treatment 11/07 continue same treatment 11/08 continue tx. 11/[address] hearing to affirm HCP scheduled for tomorrow. 11/11/2022 Patient has affirmed healthcare proxy encourage medication compliance Informed Consent: does not understand Reason for continued inpatient stay Substantial Risk for: harm to others and inability to function Time Spent With Patient Time: Total time managing care of this patient today ____ minutes.
[2022-11-11 18:15] VITALS: BP 152/66; PULSE 72; TEMP 36
[2022-11-12 08:35] VITALS: BP 138/76; PULSE 84; RESP 18; TEMP 35.9; O2SAT 97
[2022-11-12] MEDS: Aspirin 81 MG TAB.CHEW PO (08:41)
[2022-11-12] MEDS: HaloperidoL 5 MG TABLET PO (08:42)
--- NOTE | 2022-11-12 14:18 | HO.PSYCHPN ---
Subjective Subjective Date of Service: 11/12/22 Reason For Visit: F03.90 F03.9 Subjective Notes: Section 7 Healthcare Proxy: Yes Interim History: Patient has affirmed healthcare proxy intermittently refusing medication patient not overly agitated when seen Medication Compliance: Intermittent Mental Status Exam Mental Status Exam Patient Appearance: Appropriate Patient Orientation: Person and Situation Level of Consciousness: Awake and Appropriate Patient Behavior: Guarded and Passive Mood Description: Withdrawn and Constricted Affect Description: Blunted Patient Cognition Impaired: Yes Ability to Follow Directions: Fair Speech Pattern: Clear Hallucinations: Auditory Delusions: Paranoid Ideation Thought Process: Distracted and Slowed Thinking Thought Content: positive for [place] and positive for Circumstantial Judgement: Poor Diagnostics Vital Signs (24Hr): Vital Signs - 24 hr 11/11/22 18:15 11/12/22 08:35 Temperature 96.8 F 96.6 F L Pulse Rate 72 84 Respiratory Rate 18 Blood Pressure 152/66 H 138/76 Pulse Oximetry 97 Oxygen Delivery Method Room Air BMI result Body Mass Index 26.3 Labs 10/25/22 08:09 10/25/22 08:09 Medications Medications Current Medications Acetaminophen (Acetaminophen 325 Mg Tablet) 650 mg PO Q6H PRN PRN Reason: Headache/Pain Mild Scale (1-3) Al Hydroxide/Mg Hydroxide (Magnesium Hydrox/Alum Hydrox 30 Ml Oral.Susp) 30 ml PO Q6H PRN PRN Reason: Heartburn/Nausea Last Admin: 11/10/22 09:54 Dose: 30 ml Aspirin (Aspirin 81 Mg Tab.Chew) 81 mg PO DAILY [facility] Last Admin: 11/12/22 08:41 Dose: 81 mg Atorvastatin Calcium (Atorvastatin Calcium 20 Mg Tablet) 20 mg PO BEDTIME@1800 [facility] Last Admin: 11/11/22 18:25 Dose: Not Given Haloperidol (Haloperidol 5 Mg Tablet) 5 mg PO DAILY [facility] Last Admin: 11/12/22 08:42 Dose: 5 mg Haloperidol (Haloperidol 5 Mg Tablet) 5 mg PO BEDTIME@1800 [facility] Last Admin: 11/11/22 18:27 Dose: Not Given Hydroxyzine HCl (Hydroxyzine Hcl 25 Mg Tablet) 25 mg PO Q6H PRN PRN Reason: Anxiety Lidocaine (Lidocaine 4 % Patch Adh..Patch) 2 patch TRANSDERMA DAILY [facility]; Protocol Last Admin: 11/12/22 12:12 Dose: Not Given Magnesium Hydroxide (Milk Of Magnesia 30 Ml Oral.Susp) 30 ml PO DAILY PRN PRN Reason: Constipation Olanzapine (Olanzapine Odt 10 Mg Tab.Rapdis) 10 mg TRANSLINGU Q6H PRN PRN Reason: agitation Last Admin: 10/31/22 14:30 Dose: 10 mg Senna/Docusate Sodium (Sennosides/Docusate Sodium Tablet) 1 tab PO BEDTIME@1800 [facility] Last Admin: 11/11/22 18:44 Dose: Not Given Trazodone HCl (Trazodone Hcl 50 Mg Tablet) 50 mg PO BEDTIME PRN PRN Reason: Insomnia Last Admin: 11/05/22 21:37 Dose: 50 mg Allergies Allergies Allergy/AdvReac Type Severity Reaction Status Date / Time No Known Allergies Allergy Verified 10/24/22 13:55 Assessment & Plan Assessment & Plan (1) Schizophrenia, paranoid, chronic with acute exacerbation: Status: Acute Code(s): F20.0 - Paranoid schizophrenia Plan Mrs. Sahni is a 77 year-old [place] woman who apparently has long hx of paranoia/psychosis large untreated for decades until 2019 when she presented with increase combative behaviors secondary to paranoid, psychosis. She had been admitted to [facility] in 2019 and given Invega sustenna per records with good effect. Per daughter she has not been on antipsychotics since she was discharged from the hospital. Pt was given Invega Sustenna 117.5mg IM on 10/16/22 at [place] while waiting for psychiatric bed to come. Pt does not appear to have capacity to make medical decisions at this time. Daughter is healthcare proxy, which has been invoked. PLAN 10/27 Continue tx including haldol 2.5mg po BID. Pt received last Invega Sustenna 117 mg IM on 10/16, declines second loading FIGUEROA of invega at this point. 10/28 continue tx. 10/29 continue tx. 10/30 increase haldol to 3mg po BID 10/31 increase haldol to 5mg po BID as it is less pills per pt request and fact that she continues to present floridly psychotic. 11/01/22 cont plan of care 11/02 continue tx. 11/03 petition for involuntary commitment sent to court. Pt on sect 7. 11/04 remains focused on discharge and otherwise difficult with which to engage; continue current treatment plan, though has been refusing medications 11/05 continue current tx plan 11/06 continue same treatment 11/07 continue same treatment 11/08 continue tx. 11/[address] hearing to affirm HCP scheduled for tomorrow. 11/11/2022 Patient has affirmed healthcare proxy encourage medication compliance 11/12/22 cont plan of care monitor response to medication Reason for continued inpatient stay Substantial Risk for: inability to function, rapid decompensation and med/psych decompensation Time Spent With Patient Time: Total time managing care of this patient today ____ minutes.
--- NOTE | 2022-11-12 17:02 | PC.NURSE ---
Pt refused medications stating that she only takes them once a day.
[2022-11-12 18:00] VITALS: BP 146/66; PULSE 73; RESP 18; TEMP 36; O2SAT 97
[2022-11-13 09:26] VITALS: BP 140/63; PULSE 91; RESP 18; TEMP 36.4; O2SAT 96
--- NOTE | 2022-11-13 10:59 | P.PNPSI_ITS ---
Subjective Subjective Date of Service: 11/13/22 Reason For Visit: F03.90 F03.9 Subjective Notes: Conditional Voluntary ( by affirmed healthcare proxy) Interim History: the nursing staff reported the patient had been calmer and the 2nd shaved, she stated that she was doing okay but and she refused medications. On interview the patient denies new symptoms, confused and internally preoccupied. Mental Status Exam Mental Status Exam Patient Appearance: Appropriate Patient Orientation: Person and Situation Level of Consciousness: Awake and Appropriate Patient Behavior: Guarded and Passive Mood Description: Calm and Constricted Affect Description: Blunted Patient Cognition Impaired: Yes Ability to Follow Directions: Good Speech Pattern: Clear Hallucinations: None Delusions: Paranoid Ideation Thought Process: Distracted, Evasive and Slowed Thinking Thought Content: positive for [place], positive for [place] and positive for Thought Blocking Judgement: Fair Diagnostics Vital Signs (24Hr): Vital Signs - 24 hr 11/12/22 18:00 11/13/22 09:26 Temperature 96.8 F 97.5 F Pulse Rate 73 91 Respiratory Rate 18 18 Blood Pressure 146/66 H 140/63 H Pulse Oximetry 97 96 Oxygen Delivery Method Room Air Room Air BMI result Body Mass Index 26.3 Labs 10/25/22 08:09 10/25/22 08:09 Medications Medications Current Medications Acetaminophen (Acetaminophen 325 Mg Tablet) 650 mg PO Q6H PRN PRN Reason: Headache/Pain Mild Scale (1-3) Al Hydroxide/Mg Hydroxide (Magnesium Hydrox/Alum Hydrox 30 Ml Oral.Susp) 30 ml PO Q6H PRN PRN Reason: Heartburn/Nausea Last Admin: 11/10/22 09:54 Dose: 30 ml Aspirin (Aspirin 81 Mg Tab.Chew) 81 mg PO DAILY [facility] Last Admin: 11/12/22 08:41 Dose: 81 mg Atorvastatin Calcium (Atorvastatin Calcium 20 Mg Tablet) 20 mg PO BEDTIME@1800 [facility] Last Admin: 11/12/22 17:00 Dose: Not Given Haloperidol (Haloperidol 5 Mg Tablet) 5 mg PO DAILY [facility] Last Admin: 11/12/22 08:42 Dose: 5 mg Haloperidol (Haloperidol 5 Mg Tablet) 5 mg PO BEDTIME@1800 [facility] Last Admin: 11/12/22 17:00 Dose: Not Given Hydroxyzine HCl (Hydroxyzine Hcl 25 Mg Tablet) 25 mg PO Q6H PRN PRN Reason: Anxiety Lidocaine (Lidocaine 4 % Patch Adh..Patch) 2 patch TRANSDERMA DAILY [facility]; Protocol Last Admin: 11/12/22 12:12 Dose: Not Given Magnesium Hydroxide (Milk Of Magnesia 30 Ml Oral.Susp) 30 ml PO DAILY PRN PRN Reason: Constipation Olanzapine (Olanzapine Odt 10 Mg Tab.Rapdis) 10 mg TRANSLINGU Q6H PRN PRN Reason: agitation Last Admin: 10/31/22 14:30 Dose: 10 mg Senna/Docusate Sodium (Sennosides/Docusate Sodium Tablet) 1 tab PO BEDTIME@1800 [facility] Last Admin: 11/12/22 17:01 Dose: Not Given Trazodone HCl (Trazodone Hcl 50 Mg Tablet) 50 mg PO BEDTIME PRN PRN Reason: Insomnia Last Admin: 11/05/22 21:37 Dose: 50 mg Allergies Allergies Allergy/AdvReac Type Severity Reaction Status Date / Time No Known Allergies Allergy Verified 10/24/22 13:55 Assessment & Plan Assessment & Plan (1) Schizophrenia, paranoid, chronic with acute exacerbation: Status: Acute Code(s): F20.0 - Paranoid schizophrenia Plan Mrs. Sahni is a 77 year-old [place] woman who apparently has long hx of paranoia/psychosis large untreated for decades until 2019 when she presented with increase combative behaviors secondary to paranoid, psychosis. She had been admitted to [facility] in 2019 and given Invega sustenna per records with good effect. Per daughter she has not been on antipsychotics since she was discharged from the hospital. Pt was given Invega Sustenna 117.5mg IM on 10/16/22 at [place] while waiting for psychiatric bed to come. Pt does not appear to have capacity to make medical decisions at this time. Daughter is healthcare proxy, which has been invoked. PLAN 10/27 Continue tx including haldol 2.5mg po BID. Pt received last Invega Sustenna 117 mg IM on 10/16, declines second loading FIGUEROA of invega at this point. 10/28 continue tx. 10/29 continue tx. 10/30 increase haldol to 3mg po BID 10/31 increase haldol to 5mg po BID as it is less pills per pt request and fact that she continues to present floridly psychotic. 11/01/22 cont plan of care 11/02 continue tx. 11/03 petition for involuntary commitment sent to court. Pt on sect 7. 11/04 remains focused on discharge and otherwise difficult with which to engage; continue current treatment plan, though has been refusing medications 11/05 continue current tx plan 11/06 continue same treatment 11/07 continue same treatment 11/08 continue tx. 11/[address] hearing to affirm HCP scheduled for tomorrow. 11/11/2022 Patient has affirmed healthcare proxy encourage medication compliance 11/13 continue same treatment Reason for continued inpatient stay Substantial Risk for: inability to function, rapid decompensation and med/psych decompensation Time Spent With Patient Time: Total time managing care of this patient today __20__ minutes.
[2022-11-13] MEDS: HaloperidoL 5 MG TABLET PO ×2 (12:27→17:27)
[2022-11-13] MEDS: Aspirin 81 MG TAB.CHEW PO (12:27)
[2022-11-13 18:00] VITALS: BP 137/60; PULSE 95; RESP 18; TEMP 36.1; O2SAT 97
[2022-11-14 08:45] VITALS: BP 135/61; PULSE 86; RESP 18; TEMP 36.5; O2SAT 96
--- NOTE | 2022-11-14 12:11 | P.PNPSI_ITS ---
Subjective Subjective Date of Service: 11/14/22 Reason For Visit: F03.90 F03.9 Subjective Notes: Conditional Voluntary Interim History: the nursing staff reported that she refused her medications in the morning but later on she took it with a lot of encouragement. The occupational therapist reported that she has attended a few groups. The director social reported that she is going back home with her daughter even though that they have conflicts. On interview the patient was electively mute stating that she is doing fine. Mental Status Exam Mental Status Exam Patient Appearance: Appropriate Patient Orientation: Person and Situation Level of Consciousness: Awake and Appropriate Patient Behavior: Guarded and Passive Mood Description: Withdrawn and Constricted Affect Description: Blunted Patient Cognition Impaired: Yes Ability to Follow Directions: Fair Speech Pattern: Clear Hallucinations: Auditory Delusions: Paranoid Ideation Thought Process: Distracted and Slowed Thinking Thought Content: positive for [place] and positive for Circumstantial Judgement: Poor Diagnostics Vital Signs (24Hr): Vital Signs - 24 hr 11/13/22 18:00 11/14/22 08:45 Temperature 97 F 97.7 F Pulse Rate 95 86 Respiratory Rate 18 18 Blood Pressure 137/60 135/61 Pulse Oximetry 97 96 Oxygen Delivery Method Room Air Room Air BMI result Body Mass Index 26.3 Labs 10/25/22 08:09 10/25/22 08:09 Medications Medications Current Medications Acetaminophen (Acetaminophen 325 Mg Tablet) 650 mg PO Q6H PRN PRN Reason: Headache/Pain Mild Scale (1-3) Al Hydroxide/Mg Hydroxide (Magnesium Hydrox/Alum Hydrox 30 Ml Oral.Susp) 30 ml PO Q6H PRN PRN Reason: Heartburn/Nausea Last Admin: 11/10/22 09:54 Dose: 30 ml Aspirin (Aspirin 81 Mg Tab.Chew) 81 mg PO DAILY [facility] Last Admin: 11/13/22 12:27 Dose: 81 mg Atorvastatin Calcium (Atorvastatin Calcium 20 Mg Tablet) 20 mg PO BEDTIME@1800 [facility] Last Admin: 11/13/22 17:30 Dose: Not Given Haloperidol (Haloperidol 5 Mg Tablet) 5 mg PO DAILY [facility] Last Admin: 11/13/22 12:27 Dose: 5 mg Haloperidol (Haloperidol 5 Mg Tablet) 5 mg PO BEDTIME@1800 [facility] Last Admin: 11/13/22 17:27 Dose: 5 mg Hydroxyzine HCl (Hydroxyzine Hcl 25 Mg Tablet) 25 mg PO Q6H PRN PRN Reason: Anxiety Lidocaine (Lidocaine 4 % Patch Adh..Patch) 2 patch TRANSDERMA DAILY [facility]; Protocol Last Admin: 11/14/22 10:48 Dose: Not Given Magnesium Hydroxide (Milk Of Magnesia 30 Ml Oral.Susp) 30 ml PO DAILY PRN PRN Reason: Constipation Olanzapine (Olanzapine Odt 10 Mg Tab.Rapdis) 10 mg TRANSLINGU Q6H PRN PRN Reason: agitation Last Admin: 10/31/22 14:30 Dose: 10 mg Senna/Docusate Sodium (Sennosides/Docusate Sodium Tablet) 1 tab PO BEDTIME@1800 [facility] Last Admin: 11/13/22 17:31 Dose: Not Given Trazodone HCl (Trazodone Hcl 50 Mg Tablet) 50 mg PO BEDTIME PRN PRN Reason: Insomnia Last Admin: 11/05/22 21:37 Dose: 50 mg Allergies Allergies Allergy/AdvReac Type Severity Reaction Status Date / Time No Known Allergies Allergy Verified 10/24/22 13:55 Assessment & Plan Assessment & Plan (1) Schizophrenia, paranoid, chronic with acute exacerbation: Status: Acute Code(s): F20.0 - Paranoid schizophrenia Plan Mrs. Sahni is a 77 year-old [place] woman who apparently has long hx of paranoia/psychosis large untreated for decades until 2019 when she presented with increase combative behaviors secondary to paranoid, psychosis. [facility] and given Invega sustenna per records with good effect. Per daughter she has not been on antipsychotics since she was discharged from the hospital. Pt was given Invega Sustenna 117.5mg IM on 10/16/22 at [place] while waiting for psychiatric bed to come. Pt does not appear to have capacity to make medical decisions at this time. Daughter is healthcare proxy, which has been invoked. PLAN 10/27 Continue tx including haldol 2.5mg po BID. Pt received last Invega Sustenna 117 mg IM on 10/16, declines second loading FIGUEROA of invega at this point. 10/28 continue tx. 10/29 continue tx. 10/30 increase haldol to 3mg po BID 10/31 increase haldol to 5mg po BID as it is less pills per pt request and fact that she continues to present floridly psychotic. 11/01/22 cont plan of care 11/02 continue tx. 11/03 petition for involuntary commitment sent to court. Pt on sect 7. 11/04 remains focused on discharge and otherwise difficult with which to engage; continue current treatment plan, though has been refusing medications 11/05 continue current tx plan 11/06 continue same treatment 11/07 continue same treatment 11/08 continue tx. 11/[address] hearing to affirm HCP scheduled for tomorrow. 11/11/2022 Patient has affirmed healthcare proxy encourage medication compliance 11/13 continue same treatment 11/14 continue same treatment Reason for continued inpatient stay Substantial Risk for: inability to function, rapid decompensation and med/psych decompensation Time Spent With Patient Time: Total time managing care of this patient today __20__ minutes.
[2022-11-14] MEDS: Aspirin 81 MG TAB.CHEW PO (13:13)
[2022-11-14] MEDS: HaloperidoL 5 MG TABLET PO ×2 (13:16→17:50)
[2022-11-14] MEDS: Magnesium Hydrox/Alum Hydrox 30 ML ORAL.SUSP PO (18:08)
[2022-11-14 18:52] VITALS: BP 166/88; PULSE 75; RESP 16; TEMP 36.4; O2SAT 97
[2022-11-15 08:08] VITALS: BP 155/69; PULSE 72; RESP 16; TEMP 36.4; O2SAT 98
[2022-11-15] MEDS: Aspirin 81 MG TAB.CHEW PO (08:49)
[2022-11-15] MEDS: HaloperidoL 5 MG TABLET PO (08:49)
--- NOTE | 2022-11-15 14:36 | P.PNPSI_ITS ---
Subjective Subjective Date of Service: 11/15/22 Reason For Visit: F03.90 F03.9 Subjective Notes: Conditional Voluntary (by affirmed HCP) Healthcare Proxy: Yes Interim History: the nursing staff reported the patient took Haldol. The occupational therapy reported that she went to groups. On interview the patient denies new symptoms she looks internally preoccupied but pleasant. Mental Status Exam Mental Status Exam Patient Appearance: Well Grooomed and Appropriate Patient Orientation: Person and Situation Level of Consciousness: Awake and Appropriate Patient Behavior: Guarded and Passive Mood Description: Calm Affect Description: Constricted Patient Cognition Impaired: Yes Ability to Follow Directions: Good Speech Pattern: Clear Hallucinations: None Delusions: Not Present Thought Process: Linear Thought Content: positive for Circumstantial Judgement: Fair Diagnostics Vital Signs (24Hr): Vital Signs - 24 hr 11/14/22 18:52 11/15/22 08:08 Temperature 97.5 F 97.6 F Pulse Rate 75 72 Respiratory Rate 16 16 Blood Pressure 166/88 H 155/69 H Pulse Oximetry 97 98 Oxygen Delivery Method Room Air Room Air BMI result Body Mass Index 26.3 Labs 10/25/22 08:09 10/25/22 08:09 Medications Medications Current Medications Acetaminophen (Acetaminophen 325 Mg Tablet) 650 mg PO Q6H PRN PRN Reason: Headache/Pain Mild Scale (1-3) Al Hydroxide/Mg Hydroxide (Magnesium Hydrox/Alum Hydrox 30 Ml Oral.Susp) 30 ml PO Q6H PRN PRN Reason: Heartburn/Nausea Last Admin: 11/14/22 18:08 Dose: 30 ml Aspirin (Aspirin 81 Mg Tab.Chew) 81 mg PO DAILY [facility] Last Admin: 11/15/22 08:49 Dose: 81 mg Atorvastatin Calcium (Atorvastatin Calcium 20 Mg Tablet) 20 mg PO BEDTIME@1800 [facility] Last Admin: 11/14/22 17:50 Dose: Not Given Haloperidol (Haloperidol 5 Mg Tablet) 5 mg PO DAILY [facility] Last Admin: 11/15/22 08:49 Dose: 5 mg Haloperidol (Haloperidol 5 Mg Tablet) 5 mg PO BEDTIME@1800 [facility] Last Admin: 11/14/22 17:50 Dose: 5 mg Hydroxyzine HCl (Hydroxyzine Hcl 25 Mg Tablet) 25 mg PO Q6H PRN PRN Reason: Anxiety Lidocaine (Lidocaine 4 % Patch Adh..Patch) 2 patch TRANSDERMA DAILY [facility]; Protocol Last Admin: 11/15/22 09:21 Dose: Not Given Magnesium Hydroxide (Milk Of Magnesia 30 Ml Oral.Susp) 30 ml PO DAILY PRN PRN Reason: Constipation Olanzapine (Olanzapine Odt 10 Mg Tab.Rapdis) 10 mg TRANSLINGU Q6H PRN PRN Reason: agitation Last Admin: 10/31/22 14:30 Dose: 10 mg Senna/Docusate Sodium (Sennosides/Docusate Sodium Tablet) 1 tab PO BEDTIME@1800 [facility] Last Admin: 11/14/22 17:50 Dose: Not Given Trazodone HCl (Trazodone Hcl 50 Mg Tablet) 50 mg PO BEDTIME PRN PRN Reason: Insomnia Last Admin: 11/05/22 21:37 Dose: 50 mg Allergies Allergies Allergy/AdvReac Type Severity Reaction Status Date / Time No Known Allergies Allergy Verified 10/24/22 13:55 Assessment & Plan Assessment & Plan (1) Schizophrenia, paranoid, chronic with acute exacerbation: Status: Acute Code(s): F20.0 - Paranoid schizophrenia Plan Mrs. Sahni is a 77 year-old [place] woman who apparently has long hx of paranoia/psychosis large untreated for decades until 2019 when she presented with increase combative behaviors secondary to paranoid, psychosis. She had been admitted to [facility] in 2019 and given Invega sustenna per records with good effect. Per daughter she has not been on antipsychotics since she was discharged from the hospital. Pt was given Invega Sustenna 117.5mg IM on 10/16/22 at [place] while waiting for psychiatric bed to come. Pt does not appear to have capacity to make medical decisions at this time. Daughter is healthcare proxy, which has been invoked. PLAN 10/27 Continue tx including haldol 2.5mg po BID. Pt received last Invega Sustenna 117 mg IM on 10/16, declines second loading FIGUEROA of invega at this point. 10/28 continue tx. 10/29 continue tx. 10/30 increase haldol to 3mg po BID 10/31 increase haldol to 5mg po BID as it is less pills per pt request and fact that she continues to present floridly psychotic. 11/01/22 cont plan of care 11/02 continue tx. 11/03 petition for involuntary commitment sent to court. Pt on sect 7. 11/04 remains focused on discharge and otherwise difficult with which to engage; continue current treatment plan, though has been refusing medications 11/05 continue current tx plan 11/06 continue same treatment 11/07 continue same treatment 11/08 continue tx. 11/[address] hearing to affirm HCP scheduled for tomorrow. 11/11/2022 Patient has affirmed healthcare proxy encourage medication compliance 11/13 continue same treatment 11/14 continue same treatment 11/15 continue same treatment Reason for continued inpatient stay Substantial Risk for: inability to function, rapid decompensation and med/psych decompensation Time Spent With Patient Time: Total time managing care of this patient today __20__ minutes.
[2022-11-15 18:00] VITALS: BP 114/57; PULSE 86; RESP 18; TEMP 36.3; O2SAT 97
[2022-11-16 06:00] VITALS: BP 135/64; PULSE 85; RESP 18; TEMP 36.1; O2SAT 95
[2022-11-16] MEDS: HaloperidoL 5 MG TABLET PO (09:36)
--- NOTE | 2022-11-16 14:09 | P.PNPSI_ITS ---
Subjective Subjective Date of Service: 11/16/22 Reason For Visit: F03.90 F03.9 Subjective Notes: Conditional Voluntary Interim History: The nursing staff reported the patient refused her medications last night but overall she had a good day. She slept well. The professor of social work reported that they are going to discharge her back with her daughter, they had a good visit yesterday. On interview the patient denies new symptoms she looks internally preoccupied but easily redirectable. Mental Status Exam Mental Status Exam Patient Appearance: Well Grooomed and Appropriate Patient Orientation: Person Level of Consciousness: Awake and Appropriate Patient Behavior: Guarded and Passive Mood Description: Withdrawn and Constricted Affect Description: Blunted Patient Cognition Impaired: Yes Ability to Follow Directions: Good Speech Pattern: Clear Hallucinations: None Delusions: Paranoid Ideation Thought Process: Distracted and Slowed Thinking Thought Content: positive for [place] and positive for Circumstantial Judgement: Poor Diagnostics Vital Signs (24Hr): Vital Signs - 24 hr 11/15/22 18:00 11/16/22 06:00 Temperature 97.3 F 96.9 F Pulse Rate 86 85 Respiratory Rate 18 18 Blood Pressure 114/57 L 135/64 Pulse Oximetry 97 95 Oxygen Delivery Method Room Air BMI result Body Mass Index 26.3 Labs 10/25/22 08:09 10/25/22 08:09 Medications Medications Current Medications Acetaminophen (Acetaminophen 325 Mg Tablet) 650 mg PO Q6H PRN PRN Reason: Headache/Pain Mild Scale (1-3) Al Hydroxide/Mg Hydroxide (Magnesium Hydrox/Alum Hydrox 30 Ml Oral.Susp) 30 ml PO Q6H PRN PRN Reason: Heartburn/Nausea Last Admin: 11/14/22 18:08 Dose: 30 ml Aspirin (Aspirin 81 Mg Tab.Chew) 81 mg PO DAILY [facility] Last Admin: 11/16/22 09:36 Dose: Not Given Atorvastatin Calcium (Atorvastatin Calcium 20 Mg Tablet) 20 mg PO BEDTIME@1800 [facility] Last Admin: 11/15/22 17:45 Dose: Not Given Haloperidol (Haloperidol 5 Mg Tablet) 5 mg PO DAILY [facility] Last Admin: 11/16/22 09:36 Dose: 5 mg Haloperidol (Haloperidol 5 Mg Tablet) 5 mg PO BEDTIME@1800 [facility] Last Admin: 11/15/22 17:45 Dose: Not Given Hydroxyzine HCl (Hydroxyzine Hcl 25 Mg Tablet) 25 mg PO Q6H PRN PRN Reason: Anxiety Lidocaine (Lidocaine 4 % Patch Adh..Patch) 2 patch TRANSDERMA DAILY [facility]; Protocol Last Admin: 11/16/22 09:36 Dose: Not Given Magnesium Hydroxide (Milk Of Magnesia 30 Ml Oral.Susp) 30 ml PO DAILY PRN PRN Reason: Constipation Olanzapine (Olanzapine Odt 10 Mg Tab.Rapdis) 10 mg TRANSLINGU Q6H PRN PRN Reason: agitation Last Admin: 10/31/22 14:30 Dose: 10 mg Senna/Docusate Sodium (Sennosides/Docusate Sodium Tablet) 1 tab PO BEDTIME@1800 [facility] Last Admin: 11/15/22 17:45 Dose: Not Given Trazodone HCl (Trazodone Hcl 50 Mg Tablet) 50 mg PO BEDTIME PRN PRN Reason: Insomnia Last Admin: 11/05/22 21:37 Dose: 50 mg Allergies Allergies Allergy/AdvReac Type Severity Reaction Status Date / Time No Known Allergies Allergy Verified 10/24/22 13:55 Assessment & Plan Assessment & Plan (1) Schizophrenia, paranoid, chronic with acute exacerbation: Status: Acute Code(s): F20.0 - Paranoid schizophrenia Plan Mrs. Sahni is a 77 year-old [place]ag[place] woman who apparently has long hx of paranoia/psychosis large untreated for decades until 2019 when she presented with increase combative behaviors secondary to paranoid, psychosis. She had been admitted to [facility] in 2019 and given Invega sustenna per records with good effect. Per daughter she has not been on antipsychotics since she was discharged from the hospital. Pt was given Invega Sustenna 117.5mg IM on 10/16/22 at [place] while waiting for psychiatric bed to come. Pt does not appear to have capacity to make medical decisions at this time. Daughter is healthcare proxy, which has been invoked. PLAN 10/27 Continue tx including haldol 2.5mg po BID. Pt received last Invega Sustenna 117 mg IM on 10/16, declines second loading FIGUEROA of invega at this point. 10/28 continue tx. 10/29 continue tx. 10/30 increase haldol to 3mg po BID 10/31 increase haldol to 5mg po BID as it is less pills per pt request and fact that she continues to present floridly psychotic. 11/01/22 cont plan of care 11/02 continue tx. 11/03 petition for involuntary commitment sent to court. Pt on sect 7. 11/04 remains focused on discharge and otherwise difficult with which to engage; continue current treatment plan, though has been refusing medications 11/05 continue current tx plan 11/06 continue same treatment 11/07 continue same treatment 11/08 continue tx. 11/[address] hearing to affirm HCP scheduled for tomorrow. 11/11/2022 Patient has affirmed healthcare proxy encourage medication compliance 11/13 continue same treatment 11/14 continue same treatment 11/15 continue same treatment 11/16 continue same treatment Reason for continued inpatient stay Substantial Risk for: inability to function, rapid decompensation and med/psych decompensation Time Spent With Patient Time: Total time managing care of this patient today __20__ minutes.
[2022-11-16 20:26] VITALS: BP 105/62; PULSE 77; RESP 18; TEMP 36.6; O2SAT 95
[2022-11-17] MEDS: HaloperidoL 5 MG TABLET PO (08:56)
--- NOTE | 2022-11-17 15:14 | P.PNPSI_ITS ---
Subjective Subjective Date of Service: 11/17/22 Reason For Visit: F03.90 F03.9 Subjective Notes: Conditional Voluntary Interim History: The nursing staff reported the patient refused her medications last night but she had been come, isolative cooperative. On interview the patient denies new symptoms Mental Status Exam Mental Status Exam Patient Appearance: Well Grooomed and Appropriate Patient Orientation: Person Level of Consciousness: Awake and Appropriate Patient Behavior: Guarded and Passive Mood Description: Calm Affect Description: Constricted Patient Cognition Impaired: Yes Ability to Follow Directions: Good Speech Pattern: Clear Hallucinations: None Delusions: Paranoid Ideation Thought Process: Distracted and Slowed Thinking Thought Content: positive for [place] and positive for Circumstantial Judgement: Fair Diagnostics Vital Signs (24Hr): Vital Signs - 24 hr 11/16/22 20:26 Temperature 97.8 F Pulse Rate 77 Respiratory Rate 18 Blood Pressure 105/62 Pulse Oximetry 95 Oxygen Delivery Method Room Air BMI result Body Mass Index 26.3 Labs 10/25/22 08:09 10/25/22 08:09 Medications Medications Current Medications Acetaminophen (Acetaminophen 325 Mg Tablet) 650 mg PO Q6H PRN PRN Reason: Headache/Pain Mild Scale (1-3) Al Hydroxide/Mg Hydroxide (Magnesium Hydrox/Alum Hydrox 30 Ml Oral.Susp) 30 ml PO Q6H PRN PRN Reason: Heartburn/Nausea Last Admin: 11/14/22 18:08 Dose: 30 ml Aspirin (Aspirin 81 Mg Tab.Chew) 81 mg PO DAILY [facility] Last Admin: 11/17/22 08:58 Dose: Not Given Atorvastatin Calcium (Atorvastatin Calcium 20 Mg Tablet) 20 mg PO BEDTIME@1800 [facility] Last Admin: 11/16/22 18:08 Dose: Not Given Haloperidol (Haloperidol 5 Mg Tablet) 5 mg PO DAILY [facility] Last Admin: 11/17/22 08:56 Dose: 5 mg Haloperidol (Haloperidol 5 Mg Tablet) 5 mg PO BEDTIME@1800 [facility] Last Admin: 11/16/22 18:08 Dose: Not Given Hydroxyzine HCl (Hydroxyzine Hcl 25 Mg Tablet) 25 mg PO Q6H PRN PRN Reason: Anxiety Lidocaine (Lidocaine 4 % Patch Adh..Patch) 2 patch TRANSDERMA DAILY [facility]; Protocol Last Admin: 11/17/22 09:07 Dose: Not Given Magnesium Hydroxide (Milk Of Magnesia 30 Ml Oral.Susp) 30 ml PO DAILY PRN PRN Reason: Constipation Olanzapine (Olanzapine Odt 10 Mg Tab.Rapdis) 10 mg TRANSLINGU Q6H PRN PRN Reason: agitation Last Admin: 10/31/22 14:30 Dose: 10 mg Senna/Docusate Sodium (Sennosides/Docusate Sodium Tablet) 1 tab PO BEDTIME@1800 [facility] Last Admin: 11/16/22 18:09 Dose: Not Given Trazodone HCl (Trazodone Hcl 50 Mg Tablet) 50 mg PO BEDTIME PRN PRN Reason: Insomnia Last Admin: 11/05/22 21:37 Dose: 50 mg Allergies Allergies Allergy/AdvReac Type Severity Reaction Status Date / Time No Known Allergies Allergy Verified 10/24/22 13:55 Assessment & Plan Assessment & Plan (1) Schizophrenia, paranoid, chronic with acute exacerbation: Status: Acute Code(s): F20.0 - Paranoid schizophrenia Plan Mrs. Sahni is a 77 year-old [place]ian woman who apparently has long hx of paranoia/psychosis large untreated for decades until 2019 when she presented with increase combative behaviors secondary to paranoid, psychosis. She had been admitted to [facility] in 2019 and given Invega sustenna per records with good effect. Per daughter she has not been on antipsychotics since she was discharged from the hospital. Pt was given Invega Sustenna 117.5mg IM on 10/16/22 at [place] while waiting for psychiatric bed to come. Pt does not appear to have capacity to make medical decisions at this time. Daughter is healthcare proxy, which has been invoked. PLAN 10/27 Continue tx including haldol 2.5mg po BID. Pt received last Invega Sustenna 117 mg IM on 10/16, declines second loading FIGUEROA of invega at this point. 10/28 continue tx. 10/29 continue tx. 10/30 increase haldol to 3mg po BID 10/31 increase haldol to 5mg po BID as it is less pills per pt request and fact that she continues to present floridly psychotic. 11/01/22 cont plan of care 11/02 continue tx. 11/03 petition for involuntary commitment sent to court. Pt on sect 7. 11/04 remains focused on discharge and otherwise difficult with which to engage; continue current treatment plan, though has been refusing medications 11/05 continue current tx plan 11/06 continue same treatment 11/07 continue same treatment 11/08 continue tx. 11/[address] hearing to affirm HCP scheduled for tomorrow. 11/11/2022 Patient has affirmed healthcare proxy encourage medication compliance 11/13 continue same treatment 11/14 continue same treatment 11/15 continue same treatment 11/16 continue same treatment 11/17 continue same treatment Reason for continued inpatient stay Substantial Risk for: inability to function, rapid decompensation and med/psych decompensation Time Spent With Patient Time: Total time managing care of this patient today __20__ minutes.
--- NOTE | 2022-11-18 00:54 | PC.NURSE ---
Patient refused to cooperate with any assessments. Patient yelling No , and wants to sleep.
[2022-11-18 07:45] VITALS: BP 140/68; PULSE 78; RESP 18; TEMP 36.4; O2SAT 97
--- NOTE | 2022-11-18 11:03 | P.PNPSI_ITS ---
Subjective Subjective Date of Service: 11/18/22 Reason For Visit: F03.90 F03.9 Subjective Notes: Conditional Voluntary Interim History: The nursing staff reported the patient had been refusing her medications but she had stating her room come, cooperative no evidence of agitation. On interview the patient denies new symptoms. I encouraged to take her medications. Mental Status Exam Mental Status Exam Patient Appearance: Well Grooomed and Appropriate Patient Orientation: Person and Situation Level of Consciousness: Awake and Appropriate Patient Behavior: Guarded and Passive Mood Description: Calm Affect Description: Constricted Patient Cognition Impaired: Yes Ability to Follow Directions: Good Speech Pattern: Clear Hallucinations: None Delusions: Paranoid Ideation Thought Process: Linear Thought Content: positive for Circumstantial Judgement: Poor Diagnostics Vital Signs (24Hr): Vital Signs - 24 hr 11/18/22 07:45 Temperature 97.6 F Pulse Rate 78 Respiratory Rate 18 Blood Pressure 140/68 H Pulse Oximetry 97 Oxygen Delivery Method Room Air BMI result Body Mass Index 26.3 Labs 10/25/22 08:09 10/25/22 08:09 Medications Medications Current Medications Acetaminophen (Acetaminophen 325 Mg Tablet) 650 mg PO Q6H PRN PRN Reason: Headache/Pain Mild Scale (1-3) Al Hydroxide/Mg Hydroxide (Magnesium Hydrox/Alum Hydrox 30 Ml Oral.Susp) 30 ml PO Q6H PRN PRN Reason: Heartburn/Nausea Last Admin: 11/14/22 18:08 Dose: 30 ml Aspirin (Aspirin 81 Mg Tab.Chew) 81 mg PO DAILY [facility] Last Admin: 11/17/22 08:58 Dose: Not Given Atorvastatin Calcium (Atorvastatin Calcium 20 Mg Tablet) 20 mg PO BEDTIME@1800 [facility] Last Admin: 11/17/22 17:31 Dose: Not Given Haloperidol (Haloperidol 5 Mg Tablet) 5 mg PO DAILY [facility] Last Admin: 11/17/22 08:56 Dose: 5 mg Haloperidol (Haloperidol 5 Mg Tablet) 5 mg PO BEDTIME@1800 [facility] Last Admin: 11/17/22 17:31 Dose: Not Given Hydroxyzine HCl (Hydroxyzine Hcl 25 Mg Tablet) 25 mg PO Q6H PRN PRN Reason: Anxiety Lidocaine (Lidocaine 4 % Patch Adh..Patch) 2 patch TRANSDERMA DAILY [facility]; Protocol Last Admin: 11/18/22 09:56 Dose: Not Given Magnesium Hydroxide (Milk Of Magnesia 30 Ml Oral.Susp) 30 ml PO DAILY PRN PRN Reason: Constipation Olanzapine (Olanzapine Odt 10 Mg Tab.Rapdis) 10 mg TRANSLINGU Q6H PRN PRN Reason: agitation Last Admin: 10/31/22 14:30 Dose: 10 mg Senna/Docusate Sodium (Sennosides/Docusate Sodium Tablet) 1 tab PO BEDTIME@1800 [facility] Last Admin: 11/17/22 17:31 Dose: Not Given Trazodone HCl (Trazodone Hcl 50 Mg Tablet) 50 mg PO BEDTIME PRN PRN Reason: Insomnia Last Admin: 11/05/22 21:37 Dose: 50 mg Allergies Allergies Allergy/AdvReac Type Severity Reaction Status Date / Time No Known Allergies Allergy Verified 10/24/22 13:55 Assessment & Plan Assessment & Plan (1) Schizophrenia, paranoid, chronic with acute exacerbation: Status: Acute Code(s): F20.0 - Paranoid schizophrenia Plan Mrs. Sahni is a 77 year-old [place]ian woman who apparently has long hx of p aranoia/psychosis large untreated for decades until 2019 when she presented with increase combative behaviors secondary to paranoid, psychosis. She had been admitted to [facility] in 2019 and given Invega sustenna per records with good effect. Per daughter she has not been on antipsychotics since she was discharged from the hospital. Pt was given Invega Sustenna 117.5mg IM on 10/16/22 at [place] while waiting for psychiatric bed to come. Pt does not appear to have capacity to make medical decisions at this time. Daughter is healthcare proxy, which has been invoked. PLAN 10/27 Continue tx including haldol 2.5mg po BID. Pt received last Invega Sustenna 117 mg IM on 10/16, declines second loading FIGUEROA of invega at this point. 10/28 continue tx. 10/29 continue tx. 10/30 increase haldol to 3mg po BID 10/31 increase haldol to 5mg po BID as it is less pills per pt request and fact that she continues to present floridly psychotic. 11/01/22 cont plan of care 11/02 continue tx. 11/03 petition for involuntary commitment sent to court. Pt on sect 7. 11/04 remains focused on discharge and otherwise difficult with which to engage; continue current treatment plan, though has been refusing medications 4/9 continue current tx plan 11/06 continue same treatment 11/07 continue same treatment 11/08 continue tx. 11/[address] hearing to affirm HCP scheduled for tomorrow. 11/11/2022 Patient has affirmed healthcare proxy encourage medication compliance 11/13 continue same treatment 11/14 continue same treatment 11/15 continue same treatment 11/16 continue same treatment 11/17 continue same treatment 11/18 continue same treatment Reason for continued inpatient stay Substantial Risk for: inability to function, rapid decompensation and med/psych decompensation Time Spent With Patient Time: Total time managing care of this patient today ___20_ minutes.
[2022-11-18] MEDS: HaloperidoL 5 MG TABLET PO ×2 (11:20→17:34)
[2022-11-18] MEDS: Aspirin 81 MG TAB.CHEW PO (11:20)
[2022-11-18] MEDS: Magnesium Hydrox/Alum Hydrox 30 ML ORAL.SUSP PO (17:37)
[2022-11-19 08:29] VITALS: BP 137/66; PULSE 79; RESP 18; TEMP 36.3; O2SAT 96
--- NOTE | 2022-11-19 09:52 | P.PNPSI_ITS ---
Subjective Subjective Date of Service: 11/19/22 Reason For Visit: F03.90 F03.9 Subjective Notes: Conditional Voluntary Interim History: The nursing staff reported the patient has refused her vital signs and medications. She slept well last night. On interview she remains internally preoccupied, even though that she had not been noncompliant with medications she looks less aggressive. Mental Status Exam Mental Status Exam Patient Appearance: Disheveled Patient Orientation: Person and Situation Level of Consciousness: Awake Patient Behavior: Guarded and Passive Mood Description: Withdrawn Affect Description: Blunted Patient Cognition Impaired: Yes Ability to Follow Directions: Good Speech Pattern: Clear Hallucinations: None Delusions: Paranoid Ideation Thought Process: Illogical, Distracted and Evasive Thought Content: positive for [place] Judgement: Poor Diagnostics Vital Signs (24Hr): Vital Signs - 24 hr 11/19/22 08:29 Temperature 97.3 F Pulse Rate 79 Respiratory Rate 18 Blood Pressure 137/66 Pulse Oximetry 96 Oxygen Delivery Method Room Air BMI result Body Mass Index 26.3 Labs 10/25/22 08:09 10/25/22 08:09 Medications Medications Current Medications Acetaminophen (Acetaminophen 325 Mg Tablet) 650 mg PO Q6H PRN PRN Reason: Headache/Pain Mild Scale (1-3) Al Hydroxide/Mg Hydroxide (Magnesium Hydrox/Alum Hydrox 30 Ml Oral.Susp) 30 ml PO Q6H PRN PRN Reason: Heartburn/Nausea Last Admin: 11/18/22 17:37 Dose: 30 ml Aspirin (Aspirin 81 Mg Tab.Chew) 81 mg PO DAILY [facility] Last Admin: 11/18/22 11:20 Dose: 81 mg Atorvastatin Calcium (Atorvastatin Calcium 20 Mg Tablet) 20 mg PO BEDTIME@1800 [facility] Last Admin: 11/18/22 17:40 Dose: Not Given Haloperidol (Haloperidol 5 Mg Tablet) 5 mg PO DAILY [facility] Last Admin: 11/18/22 11:20 Dose: 5 mg Haloperidol (Haloperidol 5 Mg Tablet) 5 mg PO BEDTIME@1800 [facility] Last Admin: 11/18/22 17:34 Dose: 5 mg Hydroxyzine HCl (Hydroxyzine Hcl 25 Mg Tablet) 25 mg PO Q6H PRN PRN Reason: Anxiety Lidocaine (Lidocaine 4 % Patch Adh..Patch) 2 patch TRANSDERMA DAILY [facility]; Protocol Last Admin: 11/18/22 09:56 Dose: Not Given Magnesium Hydroxide (Milk Of Magnesia 30 Ml Oral.Susp) 30 ml PO DAILY PRN PRN Reason: Constipation Olanzapine (Olanzapine Odt 10 Mg Tab.Rapdis) 10 mg TRANSLINGU Q6H PRN PRN Reason: agitation Last Admin: 10/31/22 14:30 Dose: 10 mg Senna/Docusate Sodium (Sennosides/Docusate Sodium Tablet) 1 tab PO BEDTIME@1800 [facility] Last Admin: 11/18/22 17:40 Dose: Not Given Trazodone HCl (Trazodone Hcl 50 Mg Tablet) 50 mg PO BEDTIME PRN PRN Reason: Insomnia Last Admin: 11/05/22 21:37 Dose: 50 mg Allergies Allergies Allergy/AdvReac Type Severity Reaction Status Date / Time No Known Allergies Allergy Verified 10/24/22 13:55 Assessment & Plan Assessment & Plan (1) Schizophrenia, paranoid, chronic with acute exacerbation: Status: Acute Code(s): F20.0 - Paranoid schizophrenia Plan Mrs. Sahni is a 77 year-old Filipino woman who apparently has long hx of para noia/psychosis large untreated for decades until 2019 when she presented with increase combative behaviors secondary to paranoid, psychosis. She had been admitted to [facility] in 2019 and given Invega sustenna per records with good effect. Per daughter she has not been on antipsychotics since she was discharged from the hospital. Pt was given Invega Sustenna 117.5mg IM on 10/16/22 at [place] while waiting for psychiatric bed to come. Pt does not appear to have capacity to make medical decisions at this time. Daughter is healthcare proxy, which has been invoked. PLAN 10/27 Continue tx including haldol 2.5mg po BID. Pt received last Invega Sustenna 117 mg IM on 10/16, declines second loading IFGUEROA of invega at this point. 10/28 continue tx. 10/29 continue tx. 10/30 increase haldol to 3mg po BID 10/31 increase haldol to 5mg po BID as it is less pills per pt request and fact that she continues to present floridly psychotic. 11/01/22 cont plan of care 11/02 continue tx. 11/03 petition for involuntary commitment sent to court. Pt on sect 7. 11/04 remains focused on discharge and otherwise difficult with which to engage; continue current treatment plan, though has been refusing medications 11/05 continue current tx plan 11/06 continue same treatment 11/07 continue same treatment 11/08 continue tx. 11/[address] hearing to affirm HCP scheduled for tomorrow. 11/11/2022 Patient has affirmed healthcare proxy encourage medication compliance 11/13 continue same treatment 11/14 continue same treatment 11/15 continue same treatment 11/16 continue same treatment 11/17 continue same treatment 11/18 continue same treatment 11/19 continue same treatment Reason for continued inpatient stay Substantial Risk for: inability to function, rapid decompensation and med/psych decompensation Time Spent With Patient Time: Total time managing care of this patient today __20__ minutes.
[2022-11-19] MEDS: Aspirin 81 MG TAB.CHEW PO (10:12)
[2022-11-19] MEDS: HaloperidoL 5 MG TABLET PO (10:14)
[2022-11-20 08:30] VITALS: BP 128/66; PULSE 62; RESP 18; TEMP 36.6; O2SAT 97
[2022-11-20] MEDS: HaloperidoL 5 MG TABLET PO (08:48)
--- NOTE | 2022-11-20 14:03 | P.PNPSI_ITS ---
Subjective Subjective Date of Service: 11/20/22 Reason For Visit: F03.90 F03.9 Subjective Notes: Conditional Voluntary Interim History: The nursing staff reported the patient is only compliant with Haldol in the morning. So far she remains internally preoccupied but no behavior responses. The social services assistant reported that most likely the discharge will be this week to her daughter's home. On interview the patient denies new symptoms, easily redirectable. Mental Status Exam Mental Status Exam Patient Appearance: Well Grooomed and Appropriate Patient Orientation: Person and Situation Level of Consciousness: Awake and Appropriate Patient Behavior: Guarded and Passive Mood Description: Withdrawn Affect Description: Constricted Patient Cognition Impaired: Yes Ability to Follow Directions: Good Speech Pattern: Appropriate Hallucinations: None Delusions: Paranoid Ideation Thought Content: positive for [place] and positive for Circumstantial Judgement: Fair Diagnostics Vital Signs (24Hr): Vital Signs - 24 hr 11/20/22 08:30 Temperature 97.9 F Pulse Rate 62 Respiratory Rate 18 Blood Pressure 128/66 Pulse Oximetry 97 Oxygen Delivery Method Room Air BMI result Body Mass Index 26.3 Labs 10/25/22 08:09 10/25/22 08:09 Medications Medications Current Medications Acetaminophen (Acetaminophen 325 Mg Tablet) 650 mg PO Q6H PRN PRN Reason: Headache/Pain Mild Scale (1-3) Al Hydroxide/Mg Hydroxide (Magnesium Hydrox/Alum Hydrox 30 Ml Oral.Susp) 30 ml PO Q6H PRN PRN Reason: Heartburn/Nausea Last Admin: 11/18/22 17:37 Dose: 30 ml Aspirin (Aspirin 81 Mg Tab.Chew) 81 mg PO DAILY [facility] Last Admin: 11/20/22 08:51 Dose: Not Given Atorvastatin Calcium (Atorvastatin Calcium 20 Mg Tablet) 20 mg PO BEDTIME@1800 [facility] Last Admin: 11/19/22 17:49 Dose: Not Given Haloperidol (Haloperidol 5 Mg Tablet) 5 mg PO DAILY [facility] Last Admin: 11/20/22 08:48 Dose: 5 mg Hydroxyzine HCl (Hydroxyzine Hcl 25 Mg Tablet) 25 mg PO Q6H PRN PRN Reason: Anxiety Lidocaine (Lidocaine 4 % Patch Adh..Patch) 2 patch TRANSDERMA DAILY [facility]; Protocol Last Admin: 11/20/22 09:24 Dose: Not Given Magnesium Hydroxide (Milk Of Magnesia 30 Ml Oral.Susp) 30 ml PO DAILY PRN PRN Reason: Constipation Olanzapine (Olanzapine Odt 10 Mg Tab.Rapdis) 10 mg TRANSLINGU Q6H PRN PRN Reason: agitation Last Admin: 10/31/22 14:30 Dose: 10 mg Senna/Docusate Sodium (Sennosides/Docusate Sodium Tablet) 1 tab PO BEDTIME@1800 [facility] Last Admin: 11/19/22 17:49 Dose: Not Given Trazodone HCl (Trazodone Hcl 50 Mg Tablet) 50 mg PO BEDTIME PRN PRN Reason: Insomnia Last Admin: 11/05/22 21:37 Dose: 50 mg Allergies Allergies Allergy/AdvReac Type Severity Reaction Status Date / Time No Known Allergies Allergy Verified 10/24/22 13:55 Assessment & Plan Assessment & Plan (1) Schizophrenia, paranoid, chronic with acute exacerbation: Status: Acute Code(s): F20.0 - Paranoid schizophrenia Plan Mrs. Sahni is a 77 year-old Vietnamese woman who apparently has long hx of paranoia/psychosis large untreated for decades until 2019 when she presented with increase combative behaviors secondary to paranoid, psychosis. She had been admitted to [facility] in 2019 and given Invega sustenna per records with good effect. Per daughter she has not been on antipsychotics since she was discharged from the hospital. Pt was given Invega Sustenna 117.5mg IM on 10/16/22 at [place] while waiting for psychiatric bed to come. Pt does not appear to have capacity to make medical decisions at this time. Daughter is healthcare proxy, which has been invoked. PLAN 10/27 Continue tx including haldol 2.5mg po BID. Pt received last Invega Sustenna 117 mg IM on 10/16, declines second loading FIGUEROA of invega at this point. 10/28 continue tx. 10/29 continue tx. 10/30 increase haldol to 3mg po BID 10/31 increase haldol to 5mg po BID as it is less pills per pt request and fact that she continues to present floridly psychotic. 11/01/22 cont plan of care 11/02 continue tx. 11/03 petition for involuntary commitment sent to court. Pt on sect 7. 11/04 remains focused on discharge and otherwise difficult with which to engage; continue current treatment plan, though has been refusing medications 11/05 continue current tx plan 11/06 continue same treatment 11/07 continue same treatment 11/08 continue tx. 11/[address] hearing to affirm HCP scheduled for tomorrow. 11/11/2022 Patient has affirmed healthcare proxy encourage medication compliance 11/13 continue same treatment 11/14 continue same treatment 11/15 continue same treatment 11/16 continue same treatment 11/17 continue same treatment 11/18 continue same treatment 11/19 continue same treatment 11/20 continue same treatment Reason for continued inpatient stay Substantial Risk for: inability to function, rapid decompensation and med/psych decompensation Time Spent With Patient Time: Total time managing care of this patient today _20___ minutes.
[2022-11-20 21:07] VITALS: RESP 18
--- NOTE | 2022-11-21 14:57 | P.PNPSI_ITS ---
Subjective Subjective Date of Service: 11/21/22 Reason For Visit: F03.90 F03.9 Subjective Notes: Conditional Voluntary Interim History: The nursing staff reported the patient slept 8 hours she refused to take her medications in the morning but later on she took it with encouragement. We are going to try to discharge her tomorrow. The occupational therapist reported that she was coming groups and she participate. On interview the patient denies new symptoms Mental Status Exam Mental Status Exam Patient Appearance: Appropriate Patient Orientation: Person and Situation Level of Consciousness: Awake and Appropriate Patient Behavior: Guarded and Passive Mood Description: Calm Affect Description: Constricted Patient Cognition Impaired: Yes Ability to Follow Directions: Good Speech Pattern: Clear Hallucinations: None Delusions: Not Present Thought Process: Distracted Thought Content: positive for [place] Judgement: Poor Diagnostics Vital Signs (24Hr): Vital Signs - 24 hr 11/20/22 21:07 Respiratory Rate 18 BMI result Body Mass Index 26.3 Labs 10/25/22 08:09 10/25/22 08:09 Medications Medications Current Medications Acetaminophen (Acetaminophen 325 Mg Tablet) 650 mg PO Q6H PRN PRN Reason: Headache/Pain Mild Scale (1-3) Al Hydroxide/Mg Hydroxide (Magnesium Hydrox/Alum Hydrox 30 Ml Oral.Susp) 30 ml PO Q6H PRN PRN Reason: Heartburn/Nausea Last Admin: 11/18/22 17:37 Dose: 30 ml Aspirin (Aspirin 81 Mg Tab.Chew) 81 mg PO DAILY [facility] Last Admin: 11/21/22 08:32 Dose: Not Given Atorvastatin Calcium (Atorvastatin Calcium 20 Mg Tablet) 20 mg PO BEDTIME@1800 [facility] Last Admin: 11/20/22 18:12 Dose: Not Given Haloperidol (Haloperidol 5 Mg Tablet) 5 mg PO DAILY [facility] Last Admin: 11/21/22 08:32 Dose: Not Given Hydroxyzine HCl (Hydroxyzine Hcl 25 Mg Tablet) 25 mg PO Q6H PRN PRN Reason: Anxiety Lidocaine (Lidocaine 4 % Patch Adh..Patch) 2 patch TRANSDERMA DAILY [facility]; Protocol Last Admin: 11/21/22 08:32 Dose: Not Given Magnesium Hydroxide (Milk Of Magnesia 30 Ml Oral.Susp) 30 ml PO DAILY PRN PRN Reason: Constipation Olanzapine (Olanzapine Odt 10 Mg Tab.Rapdis) 10 mg TRANSLINGU Q6H PRN PRN Reason: agitation Last Admin: 10/31/22 14:30 Dose: 10 mg Senna/Docusate Sodium (Sennosides/Docusate Sodium Tablet) 1 tab PO BEDTIME@1800 [facility] Last Admin: 11/20/22 18:12 Dose: Not Given Trazodone HCl (Trazodone Hcl 50 Mg Tablet) 50 mg PO BEDTIME PRN PRN Reason: Insomnia Last Admin: 11/05/22 21:37 Dose: 50 mg Allergies Allergies Allergy/AdvReac Type Severity Reaction Status Date / Time No Known Allergies Allergy Verified 10/24/22 13:55 Assessment & Plan Assessment & Plan (1) Schizophrenia, paranoid, chronic with acute exacerbation: Status: Acute Code(s): F20.0 - Paranoid schizophrenia Plan Mrs. Sahni is a 77 year-old [place] woman who apparently has long hx of paranoia/psychosis large untreated for decades until 2019 when she presented with increase combative behaviors secondary to paranoid, psychosis. She had been admitted to [facility] in 2019 and given Invega sustenna per records with good effect. Per daughter she has not been on antipsychotics since she was discharged from the hospital. Pt was given Invega Sustenna 117.5mg IM on 10/16/22 at [place] while waiting for psychiatric bed to come. Pt does not appear to have capacity to make medical decisions at this time. Daughter is healthcare proxy, which has been invoked. PLAN 10/27 Continue tx including haldol 2.5mg po BID. Pt received last Invega Sustenna 117 mg IM on 10/16, declines second loading FIGUEROA of invega at this point. 10/28 continue tx. 10/29 continue tx. 10/30 increase haldol to 3mg po BID 10/31 increase haldol to 5mg po BID as it is less pills per pt request and fact that she continues to present floridly psychotic. 11/01/22 cont plan of care 11/02 continue tx. 11/03 petition for involuntary commitment sent to court. Pt on sect 7. 11/04 remains focused on discharge and otherwise difficult with which to engage; continue current treatment plan, though has been refusing medications 11/05 continue current tx plan 11/06 continue same treatment 11/07 continue same treatment 11/08 continue tx. 11/[address] hearing to affirm HCP scheduled for tomorrow. 11/11/2022 Patient has affirmed healthcare proxy encourage medication compliance 11/13 continue same treatment 11/14 continue same treatment 11/15 continue same treatment 11/16 continue same treatment 11/17 continue same treatment 11/18 continue same treatment 11/19 continue same treatment 11/21 continue same treatment 11/20 continue same treatment Reason for continued inpatient stay Substantial Risk for: inability to function, rapid decompensation and med/psych decompensation Time Spent With Patient Time: Total time managing care of this patient today __20__ minutes.
[2022-11-21 18:00] VITALS: BP 157/67; PULSE 93; TEMP 36.6
[2022-11-21] MEDS: Atorvastatin Calcium 20 MG TABLET PO (18:05)
[2022-11-21] MEDS: Sennosides/Docusate Sodium TABLET 1 TAB PO (18:05)
--- NOTE | 2022-11-22 | ECG_ITS ---
Test Reason : palpitations Blood Pressure : / mmHG Vent. Rate : 086 BPM Atrial Rate : 086 BPM P-R Int : 118 ms QRS Dur : 086 ms QT Int : 348 ms P-R-T Axes : 080 045 059 degrees QTc Int : 416 ms Normal sinus rhythm Nonspecific T wave abnormality Abnormal ECG No previous ECGs available Referred By: Roselia Lange Electronically Signed By:Ari Milligan
[2022-11-22 08:00] VITALS: BP 125/66; PULSE 85; RESP 18; TEMP 36.4; O2SAT 97
[2022-11-22] MEDS: HaloperidoL 5 MG TABLET PO (08:31)
[2022-11-22] MEDS: Aspirin 81 MG TAB.CHEW PO (08:31)
[2022-11-22] MEDS: amLODIPine Besylate 2.5 MG TABLET PO (15:33)
[2022-11-22] MEDS: Atorvastatin Calcium 20 MG TABLET PO (17:47)
[2022-11-22] MEDS: Sennosides/Docusate Sodium TABLET 1 TAB PO (17:47)
[2022-11-22 21:00] VITALS: BP 168/77; PULSE 79; TEMP 35.6; O2SAT 98
--- NOTE | 2022-11-22 22:17 | HO.PSYCHPN ---
Subjective Subjective Date of Service: 11/22/22 Reason For Visit: F03.90 F03.9 Subjective Notes: Conditional Voluntary Interim History: Pt reports feeling weak. She later reported feeling palpitation- BP elevated SBP 180/67, HR90. No chest pain. EKG ordered. Pt denies SI/HI. She asks when she can return home. No overt delusional content noted or reported. No behavioral concern. Medication Compliance: Yes Side effects from medications: No Review of Systems Review of Systems Yes Unobtainable due to mental status Mental Status Exam Mental Status Exam Narrative: Appearance: pt wearing casual clothing, well groomed Behavior: Calm though a little guarded Psychomotor: no agitation or retardation noted Speech: Spontaneous; strong saxman dialect making her a little hard to understand VH/AH; delusions: pt talking to (who her). SI: denies HI: denies Mood: When can I go Affect: Constricted Insight/judgment: impaired Diagnostics Vital Signs (24Hr): Vital Signs - 24 hr 11/22/22 08:00 Temperature 97.5 F Pulse Rate 85 Respiratory Rate 18 Blood Pressure 125/66 Pulse Oximetry 97 Oxygen Delivery Method Room Air BMI result Body Mass Index 26.3 Labs 10/25/22 08:09 10/25/22 08:09 Medications Medications Current Medications Acetaminophen (Acetaminophen 325 Mg Tablet) 650 mg PO Q6H PRN PRN Reason: Headache/Pain Mild Scale (1-3) Al Hydroxide/Mg Hydroxide (Magnesium Hydrox/Alum Hydrox 30 Ml Oral.Susp) 30 ml PO Q6H PRN PRN Reason: Heartburn/Nausea Last Admin: 11/18/22 17:37 Dose: 30 ml Amlodipine Besylate (Amlodipine Besylate 2.5 Mg Tablet) 2.5 mg PO DAILY [facility]; Protocol Last Admin: 11/22/22 15:33 Dose: 2.5 mg Aspirin (Aspirin 81 Mg Tab.Chew) 81 mg PO DAILY [facility] Last Admin: 11/22/22 08:31 Dose: 81 mg Atorvastatin Calcium (Atorvastatin Calcium 20 Mg Tablet) 20 mg PO BEDTIME@1800 [facility] Last Admin: 11/22/22 17:47 Dose: 20 mg Haloperidol (Haloperidol 5 Mg Tablet) 5 mg PO DAILY [facility] Last Admin: 11/22/22 08:31 Dose: 5 mg Hydroxyzine HCl (Hydroxyzine Hcl 25 Mg Tablet) 25 mg PO Q6H PRN PRN Reason: Anxiety Lidocaine (Lidocaine 4 % Patch Adh..Patch) 2 patch TRANSDERMA DAILY [facility]; Protocol Last Admin: 11/22/22 10:11 Dose: Not Given Magnesium Hydroxide (Milk Of Magnesia 30 Ml Oral.Susp) 30 ml PO DAILY PRN PRN Reason: Constipation Olanzapine (Olanzapine Odt 10 Mg Tab.Rapdis) 10 mg TRANSLINGU Q6H PRN PRN Reason: agitation Last Admin: 10/31/22 14:30 Dose: 10 mg Senna/Docusate Sodium (Sennosides/Docusate Sodium Tablet) 1 tab PO BEDTIME@1800 [facility] Last Admin: 11/22/22 17:47 Dose: 1 tab Trazodone HCl (Trazodone Hcl 50 Mg Tablet) 50 mg PO BEDTIME PRN PRN Reason: Insomnia Last Admin: 11/05/22 21:37 Dose: 50 mg Allergies Allergies Allergy/AdvReac Type Severity Reaction Status Date / Time No Known Allergies Allergy Verified 10/24/22 13:55 Assessment & Plan Assessment & Plan (1) Schizophrenia, paranoid, chronic with acute exacerbation: Status: Acute Code(s): F20.0 - Paranoid schizophrenia Plan Mrs. Sahni is a 77 year-old [place]ian woman who apparently has long hx of paranoia/psychosis large untreated for decades until 2019 when she presented with increase combative behaviors secondary to paranoid, psychosis. She had been admitted to [facility] in 2019 and given Invega sustenna per records with good effect. Per daughter she has not been on antipsychotics since she was discharged from the hospital. Pt was given Invega Sustenna 117.5mg IM on 10/16/22 at [place] while waiting for psychiatric bed to come. Pt does not appear to have capacity to make medical decisions at this time. Daughter is healthcare proxy, which has been invoked. PLAN 10/27 Continue tx including haldol 2.5mg po BID. Pt received last Invega Sustenna 117 mg IM on 10/16, declines second loading FIGUEROA of invega at this point. 10/28 continue tx. 10/29 continue tx. 10/30 increase haldol to 3mg po BID 10/31 increase haldol to 5mg po BID as it is less pills per pt request and fact that she continues to present floridly psychotic. 4/5/23 cont plan of care 11/02 continue tx. 11/03 petition for involuntary commitment sent to court. Pt on sect 7. 11/04 remains focused on discharge and otherwise difficult with which to engage; continue current treatment plan, though has been refusing medications 11/05 continue current tx plan 11/06 continue same treatment 11/07 continue same treatment 11/08 continue tx. 11/[address] hearing to affirm HCP scheduled for tomorrow. 11/11/2022 Patient has affirmed healthcare proxy encourage medication compliance 11/13 continue same treatment 11/14 continue same treatment 11/15 continue same treatment 11/16 continue same treatment 11/17 continue same treatment 11/18 continue same treatment 11/19 continue same treatment 11/21 continue same treatment 11/20 continue same treatment 11/22 continue tx. Reason for continued inpatient stay Substantial Risk for: inability to function Time Spent With Patient Time: Total time managing care of this patient today ____ minutes.
[2022-11-23] MEDS: Cyanocobalamin (Vitamin B-12) 500 MCG TABLET PO (08:58)
[2022-11-23] MEDS: HaloperidoL 5 MG TABLET PO (08:58)
[2022-11-23] MEDS: amLODIPine Besylate 2.5 MG TABLET PO (08:59)
[2022-11-23 09:00] VITALS: BP 137/67; PULSE 81; RESP 18; TEMP 35.7; O2SAT 94
--- NOTE | 2022-11-23 14:02 | P.PNPSI_ITS ---
Subjective Subjective Date of Service: 11/23/22 Reason For Visit: F03.90 F03.9 Subjective Notes: Conditional Voluntary Interim History: The nursing staff reported the patient had an EKG yesterday, within normal limits, she had been pleasant and very active. The social work case manager reported that her daughter would take her home next week. Interview the patient denies new symptoms, internally preoccupied baseline. Mental Status Exam Mental Status Exam Patient Appearance: Appropriate Patient Orientation: Person and Situation Level of Consciousness: Awake and Appropriate Patient Behavior: Guarded and Passive Mood Description: Calm Affect Description: Constricted Patient Cognition Impaired: Yes Ability to Follow Directions: Good Speech Pattern: Clear Hallucinations: None Delusions: Paranoid Ideation Thought Process: Distracted and Slowed Thinking Thought Content: positive for [place] and positive for Thought Blocking Judgement: Fair Diagnostics Vital Signs (24Hr): Vital Signs - 24 hr 11/22/22 21:00 11/23/22 09:00 Temperature 96.1 F L 96.2 F L Pulse Rate 79 81 Respiratory Rate 18 Blood Pressure 168/77 H 137/67 Pulse Oximetry 98 94 Oxygen Delivery Method Room Air Room Air BMI result Body Mass Index 26.3 Labs 10/25/22 08:09 10/25/22 08:09 Medications Medications Current Medications Acetaminophen (Acetaminophen 325 Mg Tablet) 650 mg PO Q6H PRN PRN Reason: Headache/Pain Mild Scale (1-3) Al Hydroxide/Mg Hydroxide (Magnesium Hydrox/Alum Hydrox 30 Ml Oral.Susp) 30 ml PO Q6H PRN PRN Reason: Heartburn/Nausea Last Admin: 11/18/22 17:37 Dose: 30 ml Amlodipine Besylate (Amlodipine Besylate 2.5 Mg Tablet) 2.5 mg PO DAILY [facility]; Protocol Last Admin: 11/23/22 08:59 Dose: 2.5 mg Aspirin (Aspirin 81 Mg Tab.Chew) 81 mg PO DAILY [facility] Last Admin: 11/23/22 08:58 Dose: Not Given Atorvastatin Calcium (Atorvastatin Calcium 20 Mg Tablet) 20 mg PO BEDTIME@1800 [facility] Last Admin: 11/22/22 17:47 Dose: 20 mg Cyanocobalamin (Cyanocobalamin (Vitamin B-12) 500 Mcg Tablet) 500 mcg PO DAILY [facility] Last Admin: 11/23/22 08:58 Dose: 500 mcg Haloperidol (Haloperidol 5 Mg Tablet) 5 mg PO DAILY [facility] Last Admin: 11/23/22 08:58 Dose: 5 mg Hydroxyzine HCl (Hydroxyzine Hcl 25 Mg Tablet) 25 mg PO Q6H PRN PRN Reason: Anxiety Lidocaine (Lidocaine 4 % Patch Adh..Patch) 2 patch TRANSDERMA DAILY [facility]; Protocol Last Admin: 11/23/22 08:58 Dose: Not Given Magnesium Hydroxide (Milk Of Magnesia 30 Ml Oral.Susp) 30 ml PO DAILY PRN PRN Reason: Constipation Olanzapine (Olanzapine Odt 10 Mg Tab.Rapdis) 10 mg TRANSLINGU Q6H PRN PRN Reason: agitation Last Admin: 10/31/22 14:30 Dose: 10 mg Senna/Docusate Sodium (Sennosides/Docusate Sodium Tablet) 1 tab PO BEDTIME@1800 [facility] Last Admin: 11/22/22 17:47 Dose: 1 tab Trazodone HCl (Trazodone Hcl 50 Mg Tablet) 50 mg PO BEDTIME PRN PRN Reason: Insomnia Last Admin: 11/05/22 21:37 Dose: 50 mg Allergies Allergies Allergy/AdvReac Type Severity Reaction Status Date / Time No Known Allergies Allergy Verified 10/24/22 13:55 Assessment & Plan Assessment & Plan (1) Schizophrenia, paranoid, chronic with acute exacerbation: Status: Acute Code(s): F20.0 - Paranoid schizophrenia Plan Mrs. Sahni is a 77 year-old [place] woman who apparently has long hx of paranoia/psychosis large untreated for decades until 2019 when she presented with increase combative behaviors secondary to paranoid, psychosis. She had been admitted to [facility] in 2019 and given Invega sustenna per records with good effect. Per daughter she has not been on antipsychotics since she was discharged from the hospital. Pt was given Invega Sustenna 117.5mg IM on 10/16/22 at [place] while waiting for psychiatric bed to come. Pt does not appear to have capacity to make medical decisions at this time. Daughter is healthcare proxy, which has been invoked. PLAN 10/27 Continue tx including haldol 2.5mg po BID. Pt received last Invega Sustenna 117 mg IM on 10/16, declines second loading FIGUEROA of invega at this point. 10/28 continue tx. 10/29 continue tx. 10/30 increase haldol to 3mg po BID 10/31 increase haldol to 5mg po BID as it is less pills per pt request and fact that she continues to present floridly psychotic. 11/01/22 cont plan of care 11/02 continue tx. 11/03 petition for involuntary commitment sent to court. Pt on sect 7. 11/04 remains focused on discharge and otherwise difficult with which to engage; continue current treatment plan, though has been refusing medications 11/05 continue current tx plan 11/06 continue same treatment 11/07 continue same treatment 11/08 continue tx. 11/[address] hearing to affirm HCP scheduled for tomorrow. 11/11/2022 Patient has affirmed healthcare proxy encourage medication compliance 11/13 continue same treatment 11/14 continue same treatment 11/15 continue same treatment 11/16 continue same treatment 11/17 continue same treatment 11/18 continue same treatment 11/19 continue same treatment 11/21 continue same treatment 11/20 continue same treatment 11/22 continue tx. 11/23 continue same treatment Reason for continued inpatient stay Substantial Risk for: inability to function, rapid decompensation and med/psych decompensation Time Spent With Patient Time: Total time managing care of this patient today __20__ minutes.
[2022-11-23] MEDS: Sennosides/Docusate Sodium TABLET 1 TAB PO (17:14)
[2022-11-23] MEDS: Atorvastatin Calcium 20 MG TABLET PO (17:14)
[2022-11-24 08:00] VITALS: BP 138/65; PULSE 71; RESP 18; TEMP 36.3; O2SAT 98
--- NOTE | 2022-11-24 09:20 | HO.PSYCHPN ---
Subjective Subjective Date of Service: 11/24/22 Reason For Visit: F03.90 F03.9 Subjective Notes: Conditional Voluntary Interim History: The nursing staff reported the patient had been compliant with treatment. The social service technician reported that her insurance only allows medications prescribed by her primary care physician. Most likely will discharge her on Sunday to her daughter's home. On interview the patient denies new symptoms internally preoccupied but easily redirectable, no episodes of violence. Mental Status Exam Mental Status Exam Patient Appearance: Appropriate Patient Orientation: Person and Situation Level of Consciousness: Awake and Appropriate Patient Behavior: Guarded and Passive Mood Description: Withdrawn Affect Description: Constricted Patient Cognition Impaired: Yes Ability to Follow Directions: Good Speech Pattern: Monotone and Mumbled Hallucinations: None Delusions: Paranoid Ideation Thought Process: Distracted and Slowed Thinking Thought Content: positive for [place] and positive for Circumstantial Judgement: Poor Diagnostics Vital Signs (24Hr): Vital Signs - 24 hr 11/24/22 08:00 Temperature 97.4 F Pulse Rate 71 Respiratory Rate 18 Blood Pressure 138/65 Pulse Oximetry 98 Oxygen Delivery Method Room Air BMI result Body Mass Index 26.3 Labs 10/25/22 08:09 10/25/22 08:09 Medications Medications Current Medications Acetaminophen (Acetaminophen 325 Mg Tablet) 650 mg PO Q6H PRN PRN Reason: Headache/Pain Mild Scale (1-3) Al Hydroxide/Mg Hydroxide (Magnesium Hydrox/Alum Hydrox 30 Ml Oral.Susp) 30 ml PO Q6H PRN PRN Reason: Heartburn/Nausea Last Admin: 11/18/22 17:37 Dose: 30 ml Amlodipine Besylate (Amlodipine Besylate 2.5 Mg Tablet) 2.5 mg PO DAILY [facility]; Protocol Last Admin: 11/23/22 08:59 Dose: 2.5 mg Aspirin (Aspirin 81 Mg Tab.Chew) 81 mg PO DAILY [facility] Last Admin: 11/23/22 08:58 Dose: Not Given Atorvastatin Calcium (Atorvastatin Calcium 20 Mg Tablet) 20 mg PO BEDTIME@1800 [facility] Last Admin: 11/23/22 17:14 Dose: 20 mg Cyanocobalamin (Cyanocobalamin (Vitamin B-12) 500 Mcg Tablet) 500 mcg PO DAILY [facility] Last Admin: 11/23/22 08:58 Dose: 500 mcg Haloperidol (Haloperidol 5 Mg Tablet) 5 mg PO DAILY [facility] Last Admin: 11/23/22 08:58 Dose: 5 mg Hydroxyzine HCl (Hydroxyzine Hcl 25 Mg Tablet) 25 mg PO Q6H PRN PRN Reason: Anxiety Lidocaine (Lidocaine 4 % Patch Adh..Patch) 2 patch TRANSDERMA DAILY [facility]; Protocol Last Admin: 11/23/22 08:58 Dose: Not Given Magnesium Hydroxide (Milk Of Magnesia 30 Ml Oral.Susp) 30 ml PO DAILY PRN PRN Reason: Constipation Olanzapine (Olanzapine Odt 10 Mg Tab.Rapdis) 10 mg TRANSLINGU Q6H PRN PRN Reason: agitation Last Admin: 10/31/22 14:30 Dose: 10 mg Senna/Docusate Sodium (Sennosides/Docusate Sodium Tablet) 1 tab PO BEDTIME@1800 [facility] Last Admin: 11/23/22 17:14 Dose: 1 tab Trazodone HCl (Trazodone Hcl 50 Mg Tablet) 50 mg PO BEDTIME PRN PRN Reason: Insomnia Last Admin: 11/05/22 21:37 Dose: 50 mg Allergies Allergies Allergy/AdvReac Type Severity Reaction Status Date / Time No Known Allergies Allergy Verified 10/24/22 13:55 Assessment & Plan Assessment & Plan (1) Schizophrenia, paranoid, chronic with acute exacerbation: Status: Acute Code(s): F20.0 - Paranoid schizophrenia Plan Mrs. Sahni is a 77 year-old [place] woman who apparently has long hx of paranoia/psychosis large untreated for decades until 2019 when she presented with increase combative behaviors secondary to paranoid, psychosis. She had been admitted to [facility] in 2019 and given Invega sustenna per records with good effect. Per daughter she has not been on antipsychotics since she was discharged from the hospital. Pt was given Invega Sustenna 117.5mg IM on 10/16/22 at [place] while waiting for psychiatric bed to come. Pt does not appear to have capacity to make medical decisions at this time. Daughter is healthcare proxy, which has been invoked. PLAN 10/27 Continue tx including haldol 2.5mg po BID. Pt received last Invega Sustenna 117 mg IM on 10/16, declines second loading FIGUEROA of invega at this point. 10/28 continue tx. 10/29 continue tx. 10/30 increase haldol to 3mg po BID 10/31 increase haldol to 5mg po BID as it is less pills per pt request and fact that she continues to present floridly psychotic. 11/01/22 cont plan of care 11/02 continue tx. 11/03 petition for involuntary commitment sent to court. Pt on sect 7. 11/04 remains focused on discharge and otherwise difficult with which to engage; continue current treatment plan, though has been refusing medications 11/05 continue current tx plan 11/06 continue same treatment 11/07 continue same treatment 11/08 continue tx. 11/[address] hearing to affirm HCP scheduled for tomorrow. 11/11/2022 Patient has affirmed healthcare proxy encourage medication compliance 11/13 continue same treatment 11/14 continue same treatment 11/15 continue same treatment 11/16 continue same treatment 11/17 continue same treatment 11/18 continue same treatment 11/19 continue same treatment 11/21 continue same treatment 11/20 continue same treatment 11/22 continue tx. 11/23 continue same treatment 11/23 keep Haldol 5 mg only in the morning. Rest the same Reason for continued inpatient stay Substantial Risk for: inability to function, rapid decompensation and med/psych decompensation Time Spent With Patient Time: Total time managing care of this patient today __20__ minutes.
[2022-11-24] MEDS: amLODIPine Besylate 2.5 MG TABLET PO (11:20)
[2022-11-24] MEDS: Cyanocobalamin (Vitamin B-12) 500 MCG TABLET PO (11:21)
[2022-11-24] MEDS: HaloperidoL 5 MG TABLET PO (11:21)
[2022-11-24] MEDS: Aspirin 81 MG TAB.CHEW PO (11:21)
[2022-11-24 18:00] VITALS: BP 150/66; PULSE 79; RESP 16; TEMP 36.4; O2SAT 96
[2022-11-25 08:05] VITALS: BP 131/59; PULSE 88; RESP 16; TEMP 36.2; O2SAT 96
[2022-11-25] MEDS: HaloperidoL 5 MG TABLET PO (08:32)
[2022-11-25] MEDS: amLODIPine Besylate 2.5 MG TABLET PO (08:32)
[2022-11-25] MEDS: Cyanocobalamin (Vitamin B-12) 1,000 MCG TABLET 1000 MCG PO (08:32)
[2022-11-25] MEDS: Aspirin 81 MG TAB.CHEW PO (08:32)
[2022-11-25 18:00] VITALS: RESP 16
--- NOTE | 2022-11-25 19:39 | HO.PSYCHPN ---
Subjective Subjective Date of Service: 11/25/22 Reason For Visit: F03.90 F03.9 Interim History: The nursing staff reported the patient had been compliant with treatment. She reports she has been doing well. She has not had agitation or violent episodes. She is cooperative. Denies SI. She is visible in the milieu. Review of Systems Review of Systems Yes Unobtainable due to mental status Mental Status Exam Mental Status Exam Narrative: Appearance: pt wearing casual clothing, well groomed Behavior: Calm though a little guarded Psychomotor: no agitation or retardation noted Speech: Spontaneous; strong [place] dialect making her hard to understand VH/AH; delusions: pt talking to (who her). SI: denies HI: denies Mood: I'm OK Affect: Constricted Insight/judgment: impaired Patient Appearance: Appropriate Patient Orientation: Person and Situation Level of Consciousness: Awake and Appropriate Patient Behavior: Guarded and Passive Mood Description: Withdrawn Affect Description: Constricted Patient Cognition Impaired: Yes Ability to Follow Directions: Good Speech Pattern: Monotone and Mumbled Diagnostics Vital Signs (24Hr): Vital Signs - 24 hr 11/25/22 08:05 Temperature 97.2 F Pulse Rate 88 Respiratory Rate 16 Blood Pressure 131/59 L Pulse Oximetry 96 Oxygen Delivery Method Room Air BMI result Body Mass Index 26.3 Labs 10/25/22 08:09 10/25/22 08:09 Medications Medications Current Medications Acetaminophen (Acetaminophen 325 Mg Tablet) 650 mg PO Q6H PRN PRN Reason: Headache/Pain Mild Scale (1-3) Al Hydroxide/Mg Hydroxide (Magnesium Hydrox/Alum Hydrox 30 Ml Oral.Susp) 30 ml PO Q6H PRN PRN Reason: Heartburn/Nausea Last Admin: 11/18/22 17:37 Dose: 30 ml Amlodipine Besylate (Amlodipine Besylate 2.5 Mg Tablet) 2.5 mg PO DAILY [facility]; Protocol Last Admin: 11/25/22 08:32 Dose: 2.5 mg Aspirin (Aspirin 81 Mg Tab.Chew) 81 mg PO DAILY [facility] Last Admin: 11/25/22 08:32 Dose: 81 mg Atorvastatin Calcium (Atorvastatin Calcium 20 Mg Tablet) 20 mg PO BEDTIME@1800 [facility] Last Admin: 11/25/22 19:22 Dose: Not Given Cyanocobalamin (Cyanocobalamin (Vitamin B-12) 1,000 Mcg Tablet) 1,000 mcg PO DAILY [facility] Last Admin: 11/25/22 08:32 Dose: 1,000 mcg Haloperidol (Haloperidol 5 Mg Tablet) 5 mg PO DAILY [facility] Last Admin: 11/25/22 08:32 Dose: 5 mg Hydroxyzine HCl (Hydroxyzine Hcl 25 Mg Tablet) 25 mg PO Q6H PRN PRN Reason: Anxiety Lidocaine (Lidocaine 4 % Patch Adh..Patch) 2 patch TRANSDERMA DAILY [facility]; Protocol Last Admin: 11/25/22 08:45 Dose: Not Given Magnesium Hydroxide (Milk Of Magnesia 30 Ml Oral.Susp) 30 ml PO DAILY PRN PRN Reason: Constipation Olanzapine (Olanzapine Odt 10 Mg Tab.Rapdis) 10 mg TRANSLINGU Q6H PRN PRN Reason: agitation Last Admin: 10/31/22 14:30 Dose: 10 mg Senna/Docusate Sodium (Sennosides/Docusate Sodium Tablet) 1 tab PO BEDTIME@1800 [facility] Last Admin: 11/25/22 19:22 Dose: Not Given Trazodone HCl (Trazodone Hcl 50 Mg Tablet) 50 mg PO BEDTIME PRN PRN Reason: Insomnia Last Admin: 11/05/22 21:37 Dose: 50 mg Allergies Allergies Allergy/AdvReac Type Severity Reaction Status Date / Time No Known Allergies Allergy Verified 10/24/22 13:55 Assessment & Plan Assessment & Plan (1) Schizophrenia, paranoid, chronic with acute exacerbation: Status: Acute Code(s): F20.0 - Paranoid schizophrenia Plan Mrs. Sahni is a 77 year-old [place] woman who apparently has long hx of paranoia/psychosis large untreated for decades until 2019 when she presented with increase combative behaviors secondary to paranoid, psychosis. She had been admitted to [facility] in 2019 and given Invega sustenna per records with good effect. Per daughter she has not been on antipsychotics since she was discharged from the hospital. Pt was given Invega Sustenna 117.5mg IM on 10/16/22 at [place] while waiting for psychiatric bed to come. Pt does not appear to have capacity to make medical decisions at this time. Daughter is healthcare proxy, which has been invoked. PLAN 10/27 Continue tx including haldol 2.5mg po BID. Pt received last Invega Sustenna 117 mg IM on 10/16, declines second loading FIGUEROA of invega at this point. 10/28 continue tx. 10/29 continue tx. 10/30 increase haldol to 3mg po BID 10/31 increase haldol to 5mg po BID as it is less pills per pt request and fact that she continues to present floridly psychotic. 11/01/22 cont plan of care 11/02 continue tx. 11/03 petition for involuntary commitment sent to court. Pt on sect 7. 11/04 remains focused on discharge and otherwise difficult with which to engage; continue current treatment plan, though has been refusing medications 11/05 continue current tx plan 11/06 continue same treatment 11/07 continue same treatment 11/08 continue tx. 11/[address] hearing to affirm HCP scheduled for tomorrow. 11/11/2022 Patient has affirmed healthcare proxy encourage medication compliance 11/13 continue same treatment 11/14 continue same treatment 11/15 continue same treatment 11/16 continue same treatment 11/17 continue same treatment 11/18 continue same treatment 11/19 continue same treatment 11/21 continue same treatment 11/20 continue same treatment 11/22 continue tx. 11/23 continue same treatment 11/23 keep Haldol 5 mg only in the morning. Rest the same 11/25: Continue current tx plan. Reason for continued inpatient stay Substantial Risk for: inability to function and rapid decompensation Time Spent With Patient Time: Total time managing care of this patient today ____ minutes.
[2022-11-26] MEDS: Cyanocobalamin (Vitamin B-12) 1,000 MCG TABLET 1000 MCG PO (09:05)
[2022-11-26] MEDS: amLODIPine Besylate 2.5 MG TABLET PO (09:05)
[2022-11-26] MEDS: HaloperidoL 5 MG TABLET PO (09:05)
[2022-11-26] MEDS: Aspirin 81 MG TAB.CHEW PO (09:05)
[2022-11-26 09:09] VITALS: BP 145/62; PULSE 89; RESP 16; TEMP 36.2; O2SAT 96
--- NOTE | 2022-11-26 09:32 | P.PNPSI_ITS ---
Subjective Subjective Date of Service: 11/26/22 Reason For Visit: F03.90 F03.9 Interim History: The nursing staff reported the patient had been compliant with treatment. She reports she has been doing well. She has not had agitation or violent episodes. She is cooperative. Denies SI. She is visible in the milieu. Review of Systems Review of Systems Yes Unobtainable due to mental status Mental Status Exam Mental Status Exam Narrative: Appearance: pt wearing casual clothing, well groomed Behavior: Calm though a little guarded Psychomotor: no agitation or retardation noted Speech: Spontaneous; strong [place] dialect making her hard to understand VH/AH; delusions: pt talking to (who her). SI: denies HI: denies Mood: I'm OK Affect: Constricted Insight/judgment: impaired Patient Appearance: Appropriate Patient Orientation: Person and Situation Level of Consciousness: Awake and Appropriate Patient Behavior: Guarded and Passive Mood Description: Withdrawn Affect Description: Constricted Patient Cognition Impaired: Yes Ability to Follow Directions: Good Speech Pattern: Monotone and Mumbled Diagnostics Vital Signs (24Hr): Vital Signs - 24 hr 11/25/22 18:00 11/26/22 09:09 Temperature 97.2 F Pulse Rate 89 Respiratory Rate 16 16 Blood Pressure 145/62 H Pulse Oximetry 96 Oxygen Delivery Method Room Air BMI result Body Mass Index 26.3 Labs 10/25/22 08:09 10/25/22 08:09 Medications Medications Current Medications Acetaminophen (Acetaminophen 325 Mg Tablet) 650 mg PO Q6H PRN PRN Reason: Headache/Pain Mild Scale (1-3) Al Hydroxide/Mg Hydroxide (Magnesium Hydrox/Alum Hydrox 30 Ml Oral.Susp) 30 ml PO Q6H PRN PRN Reason: Heartburn/Nausea Last Admin: 11/18/22 17:37 Dose: 30 ml Amlodipine Besylate (Amlodipine Besylate 2.5 Mg Tablet) 2.5 mg PO DAILY [facility]; Protocol Last Admin: 11/26/22 09:05 Dose: 2.5 mg Aspirin (Aspirin 81 Mg Tab.Chew) 81 mg PO DAILY [facility] Last Admin: 11/26/22 09:05 Dose: 81 mg Atorvastatin Calcium (Atorvastatin Calcium 20 Mg Tablet) 20 mg PO BEDTIME@1800 [facility] Last Admin: 11/25/22 19:22 Dose: Not Given Cyanocobalamin (Cyanocobalamin (Vitamin B-12) 1,000 Mcg Tablet) 1,000 mcg PO DAILY [facility] Last Admin: 11/26/22 09:05 Dose: 1,000 mcg Haloperidol (Haloperidol 5 Mg Tablet) 5 mg PO DAILY [facility] Last Admin: 11/26/22 09:05 Dose: 5 mg Hydroxyzine HCl (Hydroxyzine Hcl 25 Mg Tablet) 25 mg PO Q6H PRN PRN Reason: Anxiety Lidocaine (Lidocaine 4 % Patch Adh..Patch) 2 patch TRANSDERMA DAILY [facility]; Protocol Last Admin: 11/26/22 09:08 Dose: Not Given Magnesium Hydroxide (Milk Of Magnesia 30 Ml Oral.Susp) 30 ml PO DAILY PRN PRN Reason: Constipation Olanzapine (Olanzapine Odt 10 Mg Tab.Rapdis) 10 mg TRANSLINGU Q6H PRN PRN Reason: agitation Last Admin: 10/31/22 14:30 Dose: 10 mg Senna/Docusate Sodium (Sennosides/Docusate Sodium Tablet) 1 tab PO BEDTIME@1800 [facility] Last Admin: 11/25/22 19:22 Dose: Not Given Trazodone HCl (Trazodone Hcl 50 Mg Tablet) 50 mg PO BEDTIME PRN PRN Reason: Insomnia Last Admin: 11/05/22 21:37 Dose: 50 mg Allergies Allergies Allergy/AdvReac Type Severity Reaction Status Date / Time No Known Allergies Allergy Verified 10/24/22 13:55 Assessment & Plan Assessment & Plan (1) Schizophrenia, paranoid, chronic with acute exacerbation: Status: Acute Code(s): F20.0 - Paranoid schizophrenia Plan Mrs. Sahni is a 77 year-old [place] woman who apparently has long hx of paranoia/psychosis large untreated for decades until 2019 when she presented with increase combative behaviors secondary to paranoid, psychosis. She had been admitted to [facility] in 2019 and given Invega sustenna per records with good effect. Per daughter she has not been on antipsychotics since she was discharged from the hospital. Pt was given Invega Sustenna 117.5mg IM on 10/16/22 at [place] while waiting for psychiatric bed to come. Pt does not appear to have capacity to make medical decisions at this time. Daughter is healthcare proxy, which has been invoked. PLAN 10/27 Continue tx including haldol 2.5mg po BID. Pt received last Invega Sustenna 117 mg IM on 10/16, declines second loading FIGUEROA of invega at this point. 10/28 continue tx. 10/29 continue tx. 10/30 increase haldol to 3mg po BID 10/31 increase haldol to 5mg po BID as it is less pills per pt request and fact that she continues to present floridly psychotic. 11/01/22 cont plan of care 11/02 continue tx. 11/03 petition for involuntary commitment sent to court. Pt on sect 7. 11/04 remains focused on discharge and otherwise difficult with which to engage; continue current treatment plan, though has been refusing medications 11/05 continue current tx plan 11/06 continue same treatment 11/07 continue same treatment 11/08 continue tx. 11/[address] hearing to affirm HCP scheduled for tomorrow. 11/11/2022 Patient has affirmed healthcare proxy encourage medication compliance 11/13 continue same treatment 11/14 continue same treatment 11/15 continue same treatment 11/16 continue same treatment 11/17 continue same treatment 11/18 continue same treatment 11/19 continue same treatment 11/21 continue same treatment 11/20 continue same treatment 11/22 continue tx. 11/23 continue same treatment 11/23 keep Haldol 5 mg only in the morning. Rest the same 11/25: Continue current tx plan. 11/26: Continue current tx plan. Reason for continued inpatient stay Substantial Risk for: inability to function and rapid decompensation Time Spent With Patient Time: Total time managing care of this patient today ____ minutes.
[2022-11-26] MEDS: Atorvastatin Calcium 20 MG TABLET PO (17:22)
[2022-11-26] MEDS: Sennosides/Docusate Sodium TABLET 1 TAB PO (17:22)
[2022-11-26 18:00] VITALS: BP 112/56; PULSE 73; RESP 18; TEMP 36.2; O2SAT 97
[2022-11-27 06:00] VITALS: BP 140/66; PULSE 75; RESP 16; TEMP 35.7; O2SAT 96
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
--- NOTE | 2022-11-27 13:51 | P.PNPSI_ITS ---
Subjective Subjective Date of Service: 11/27/22 Reason For Visit: F03.90 F03.9 Subjective Notes: Conditional Voluntary Interim History: Nursing staff reported that the patient had been compliant with her medication. Today she was supposed to be discharged to her daughter's place but she stated that she cannot take her at this moment since she has all her property and she cannot make any accommodations for her. We discussed the case with the medical social worker in a treatment team. We will try to start working for placement for her. On interview the patient looks internally preoccupied, pleasantly confused Mental Status Exam Mental Status Exam Patient Appearance: Well Grooomed and Appropriate Patient Orientation: Person Level of Consciousness: Awake and Appropriate Patient Behavior: Guarded and Passive Mood Description: Withdrawn Affect Description: Constricted Patient Cognition Impaired: Yes Ability to Follow Directions: Good Speech Pattern: Clear Hallucinations: Auditory Delusions: Paranoid Ideation Thought Process: Distracted and Slowed Thinking Thought Content: positive for [place] and positive for Circumstantial Judgement: Fair Diagnostics Vital Signs (24Hr): Vital Signs - 24 hr 11/26/22 18:00 11/27/22 06:00 Temperature 97.1 F 96.2 F L Pulse Rate 73 75 Respiratory Rate 18 16 Blood Pressure 112/56 L 140/66 H Pulse Oximetry 97 96 Oxygen Delivery Method Room Air Room Air BMI result Body Mass Index 26.3 Labs 10/25/22 08:09 10/25/22 08:09 Medications Medications Current Medications Acetaminophen (Acetaminophen 325 Mg Tablet) 650 mg PO Q6H PRN PRN Reason: Headache/Pain Mild Scale (1-3) Al Hydroxide/Mg Hydroxide (Magnesium Hydrox/Alum Hydrox 30 Ml Oral.Susp) 30 ml PO Q6H PRN PRN Reason: Heartburn/Nausea Last Admin: 11/18/22 17:37 Dose: 30 ml Amlodipine Besylate (Amlodipine Besylate 2.5 Mg Tablet) 2.5 mg PO DAILY [facility]; Protocol Last Admin: 11/27/22 08:25 Dose: Not Given Aspirin (Aspirin 81 Mg Tab.Chew) 81 mg PO DAILY [facility] Last Admin: 11/27/22 08:25 Dose: Not Given Atorvastatin Calcium (Atorvastatin Calcium 20 Mg Tablet) 20 mg PO BEDTIME@1800 [facility] Last Admin: 11/26/22 17:22 Dose: 20 mg Cyanocobalamin (Cyanocobalamin (Vitamin B-12) 1,000 Mcg Tablet) 1,000 mcg PO DAILY [facility] Last Admin: 11/27/22 08:25 Dose: Not Given Haloperidol (Haloperidol 5 Mg Tablet) 5 mg PO DAILY [facility] Last Admin: 11/27/22 08:25 Dose: Not Given Hydroxyzine HCl (Hydroxyzine Hcl 25 Mg Tablet) 25 mg PO Q6H PRN PRN Reason: Anxiety Lidocaine (Lidocaine 4 % Patch Adh..Patch) 2 patch TRANSDERMA DAILY [facility]; Protocol Last Admin: 11/27/22 08:19 Dose: Not Given Magnesium Hydroxide (Milk Of Magnesia 30 Ml Oral.Susp) 30 ml PO DAILY PRN PRN Reason: Constipation Olanzapine (Olanzapine Odt 10 Mg Tab.Rapdis) 10 mg TRANSLINGU Q6H PRN PRN Reason: agitation Last Admin: 10/31/22 14:30 Dose: 10 mg Senna/Docusate Sodium (Sennosides/Docusate Sodium Tablet) 1 tab PO BEDTIME@1800 [facility] Last Admin: 11/26/22 17:22 Dose: 1 tab Trazodone HCl (Trazodone Hcl 50 Mg Tablet) 50 mg PO BEDTIME PRN PRN Reason: Insomnia Last Admin: 11/05/22 21:37 Dose: 50 mg Allergies Allergies Allergy/AdvReac Type Severity Reaction Status Date / Time No Known Allergies Allergy Verified 10/24/22 13:55 Assessment & Plan Assessment & Plan (1) Schizophrenia, paranoid, chronic with acute exacerbation: Status: Acute Code(s): F20.0 - Paranoid schizophrenia Plan Mrs. Sahni is a 77 year-old Kos[place] woman who apparently has long hx of paranoia/psychosis large untreated for decades until 2019 when she presented with increase combative behaviors secondary to paranoid, psychosis. She had been admitted to [facility] in 2019 and given Invega sustenna per records with good effect. Per daughter she has not been on antipsychotics since she was discharged from the hospital. Pt was given Invega Sustenna 117.5mg IM on 10/16/22 at [facility] waiting for psychiatric bed to come. Pt does not appear to have capacity to make medical decisions at this time. Daughter is healthcare proxy, which has been invoked. PLAN 10/27 Continue tx including haldol 2.5mg po BID. Pt received last Invega Sustenna 117 mg IM on 10/16, declines second loading FIGUEROA of invega at this point. 10/28 continue tx. 10/29 continue tx. 10/30 increase haldol to 3mg po BID 10/31 increase haldol to 5mg po BID as it is less pills per pt request and fact that she continues to present floridly psychotic. 11/01/22 cont plan of care 11/02 continue tx. 11/03 petition for involuntary commitment sent to court. Pt on sect 7. 11/04 remains focused on discharge and otherwise difficult with which to engage; continue current treatment plan, though has been refusing medications 11/05 continue current tx plan 11/06 continue same treatment 11/07 continue same treatment 11/08 continue tx. 11/[address] hearing to affirm HCP scheduled for tomorrow. 11/11/2022 Patient has affirmed healthcare proxy encourage medication compliance 11/13 continue same treatment 11/14 continue same treatment 11/15 continue same treatment 11/16 continue same treatment 11/17 continue same treatment 11/18 continue same treatment 11/19 continue same treatment 11/21 continue same treatment 11/20 continue same treatment 11/22 continue tx. 11/23 continue same treatment 11/23 keep Haldol 5 mg only in the morning. Rest the same 11/25: Continue current tx plan. 11/26: Continue current tx plan. 11/27 waiting for placement Reason for continued inpatient stay Substantial Risk for: inability to function, rapid decompensation and med/psych decompensation Time Spent With Patient Time: Total time managing care of this patient today __20__ minutes.
[2022-11-27 19:00] VITALS: BP 148/71; PULSE 86; RESP 18; TEMP 36.1; O2SAT 96
[2022-11-28 09:30] VITALS: BP 113/76; PULSE 77; RESP 18; TEMP 36.5; O2SAT 99
[2022-11-28] MEDS: HaloperidoL 5 MG TABLET PO (10:35)
[2022-11-28] MEDS: amLODIPine Besylate 2.5 MG TABLET PO (10:35)
[2022-11-28] MEDS: Aspirin 81 MG TAB.CHEW PO (10:35)
[2022-11-28] MEDS: Cyanocobalamin (Vitamin B-12) 1,000 MCG TABLET 1000 MCG PO (10:35)
--- NOTE | 2022-11-28 15:13 | HO.PSYCHPN ---
Subjective Subjective Date of Service: 11/28/22 Reason For Visit: F03.90 F03.9 Subjective Notes: Conditional Voluntary Interim History: The nursing staff reported the patient had been noncompliant yesterday with medications. She was loud she disturbing her roommate, she was able to be redirected verbally. On interview the patient denies new symptoms, waiting for placement Mental Status Exam Mental Status Exam Patient Appearance: Appropriate Patient Orientation: Person Level of Consciousness: Awake Patient Behavior: Guarded and Passive Mood Description: Withdrawn Affect Description: Constricted Patient Cognition Impaired: Yes Ability to Follow Directions: Good Speech Pattern: Monotone Hallucinations: None Delusions: Paranoid Ideation Thought Process: Distracted and Slowed Thinking Thought Content: positive for [place] and positive for Poverty of Content Judgement: Fair Diagnostics Vital Signs (24Hr): Vital Signs - 24 hr 11/27/22 19:00 11/28/22 09:30 Temperature 96.9 F 97.7 F Pulse Rate 86 77 Respiratory Rate 18 18 Blood Pressure 148/71 H 113/76 Pulse Oximetry 96 99 Oxygen Delivery Method Room Air Room Air BMI result Body Mass Index 26.3 Labs 10/25/22 08:09 10/25/22 08:09 Medications Medications Current Medications Acetaminophen (Acetaminophen 325 Mg Tablet) 650 mg PO Q6H PRN PRN Reason: Headache/Pain Mild Scale (1-3) Al Hydroxide/Mg Hydroxide (Magnesium Hydrox/Alum Hydrox 30 Ml Oral.Susp) 30 ml PO Q6H PRN PRN Reason: Heartburn/Nausea Last Admin: 11/18/22 17:37 Dose: 30 ml Amlodipine Besylate (Amlodipine Besylate 2.5 Mg Tablet) 2.5 mg PO DAILY [facility]; Protocol Last Admin: 11/28/22 10:35 Dose: 2.5 mg Aspirin (Aspirin 81 Mg Tab.Chew) 81 mg PO DAILY [facility] Last Admin: 11/28/22 10:35 Dose: 81 mg Atorvastatin Calcium (Atorvastatin Calcium 20 Mg Tablet) 20 mg PO BEDTIME@1800 [facility] Last Admin: 11/27/22 20:35 Dose: Not Given Cyanocobalamin (Cyanocobalamin (Vitamin B-12) 1,000 Mcg Tablet) 1,000 mcg PO DAILY [facility] Last Admin: 11/28/22 10:35 Dose: 1,000 mcg Haloperidol (Haloperidol 5 Mg Tablet) 5 mg PO DAILY [facility] Last Admin: 11/28/22 10:35 Dose: 5 mg Hydroxyzine HCl (Hydroxyzine Hcl 25 Mg Tablet) 25 mg PO Q6H PRN PRN Reason: Anxiety Lidocaine (Lidocaine 4 % Patch Adh..Patch) 2 patch TRANSDERMA DAILY [facility]; Protocol Last Admin: 11/28/22 12:05 Dose: Not Given Magnesium Hydroxide (Milk Of Magnesia 30 Ml Oral.Susp) 30 ml PO DAILY PRN PRN Reason: Constipation Olanzapine (Olanzapine Odt 10 Mg Tab.Rapdis) 10 mg TRANSLINGU Q6H PRN PRN Reason: agitation Last Admin: 10/31/22 14:30 Dose: 10 mg Senna/Docusate Sodium (Sennosides/Docusate Sodium Tablet) 1 tab PO BEDTIME@1800 [facility] Last Admin: 11/27/22 20:35 Dose: Not Given Trazodone HCl (Trazodone Hcl 50 Mg Tablet) 50 mg PO BEDTIME PRN PRN Reason: Insomnia Last Admin: 11/05/22 21:37 Dose: 50 mg Allergies Allergies Allergy/AdvReac Type Severity Reaction Status Date / Time No Known Allergies Allergy Verified 10/24/22 13:55 Assessment & Plan Assessment & Plan (1) Schizophrenia, paranoid, chronic with acute exacerbation: Status: Acute Code(s): F20.0 - Paranoid schizophrenia Plan Mrs. Sahni is a 77 year-old Beninese woman who apparently has long hx of paranoia/psychosis large untreated for decades until 2019 when she presented with increase combative behaviors secondary to paranoid, psychosis. She had been admitted to [facility] in 2019 and given Invega sustenna per records with good effect. Per daughter she has not been on antipsychotics since she was discharged from the hospital. Pt was given Invega Sustenna 117.5mg IM on 10/16/22 at [place] while waiting for psychiatric bed to come. Pt does not appear to have capacity to make medical decisions at this time. Daughter is healthcare proxy, which has been invoked. PLAN 10/27 Continue tx including haldol 2.5mg po BID. Pt received last Invega Sustenna 117 mg IM on 10/16, declines second loading FIGUEROA of invega at this point. 10/28 continue tx. 10/29 continue tx. 10/30 increase haldol to 3mg po BID 10/31 increase haldol to 5mg po BID as it is less pills per pt request and fact that she continues to present floridly psychotic. 11/01/22 cont plan of care 11/02 continue tx. 11/03 petition for involuntary commitment sent to court. Pt on sect 7. 11/04 remains focused on discharge and otherwise difficult with which to engage; continue current treatment plan, though has been refusing medications 11/05 continue current tx plan 11/06 continue same treatment 11/07 continue same treatment 11/08 continue tx. 11/[address] hearing to affirm HCP scheduled for tomorrow. 11/11/2022 Patient has affirmed healthcare proxy encourage medication compliance 11/13 continue same treatment 11/14 continue same treatment 11/15 continue same treatment 11/16 continue same treatment 11/17 continue same treatment 11/18 continue same treatment 11/19 continue same treatment 11/21 continue same treatment 11/20 continue same treatment 11/22 continue tx. 11/23 continue same treatment 11/23 keep Haldol 5 mg only in the morning. Rest the same 11/25: Continue current tx plan. 11/26: Continue current tx plan. 11/27 waiting for placement 11/28 waiting for placement Reason for continued inpatient stay Substantial Risk for: inability to function, rapid decompensation and med/psych decompensation Time Spent With Patient Time: Total time managing care of this patient today __20__ minutes.
[2022-11-28 18:00] VITALS: RESP 16
[2022-11-29 06:00] VITALS: BP 140/73; PULSE 84; RESP 16; TEMP 36.8; O2SAT 95
--- NOTE | 2022-11-29 08:26 | P.PNPSI_ITS ---
Subjective Subjective Date of Service: 11/29/22 Reason For Visit: F03.90 F03.9 Subjective Notes: Conditional Voluntary Healthcare Proxy: Yes Interim History: The nursing staff reported the patient had been mostly in her room, isolative, noncompliant with medications. On interview I encouraged her to take her medications. We are waiting for placement, her daughter refused to take her since she has sold her house. We discussed with the social welfare research worker about disposition options. Mental Status Exam Mental Status Exam Patient Appearance: Appropriate Patient Orientation: Person and Situation Level of Consciousness: Awake and Appropriate Patient Behavior: Guarded and Passive Mood Description: Withdrawn Affect Description: Blunted Patient Cognition Impaired: Yes Ability to Follow Directions: Good Speech Pattern: Impoverished and Monotone Hallucinations: None Delusions: Not Present Thought Process: Distracted and Evasive Judgement: Poor Diagnostics Vital Signs (24Hr): Vital Signs - 24 hr 11/28/22 09:30 11/28/22 18:00 Temperature 97.7 F Pulse Rate 77 Respiratory Rate 18 16 Blood Pressure 113/76 Pulse Oximetry 99 Oxygen Delivery Method Room Air BMI result Body Mass Index 26.3 Labs 10/25/22 08:09 10/25/22 08:09 Medications Medications Current Medications Acetaminophen (Acetaminophen 325 Mg Tablet) 650 mg PO Q6H PRN PRN Reason: Headache/Pain Mild Scale (1-3) Al Hydroxide/Mg Hydroxide (Magnesium Hydrox/Alum Hydrox 30 Ml Oral.Susp) 30 ml PO Q6H PRN PRN Reason: Heartburn/Nausea Last Admin: 11/18/22 17:37 Dose: 30 ml Amlodipine Besylate (Amlodipine Besylate 2.5 Mg Tablet) 2.5 mg PO DAILY [facility]; Protocol Last Admin: 11/28/22 10:35 Dose: 2.5 mg Aspirin (Aspirin 81 Mg Tab.Chew) 81 mg PO DAILY [facility] Last Admin: 11/28/22 10:35 Dose: 81 mg Atorvastatin Calcium (Atorvastatin Calcium 20 Mg Tablet) 20 mg PO BEDTIME@1800 [facility] Last Admin: 11/28/22 18:13 Dose: Not Given Cyanocobalamin (Cyanocobalamin (Vitamin B-12) 1,000 Mcg Tablet) 1,000 mcg PO DAILY [facility] Last Admin: 11/28/22 10:35 Dose: 1,000 mcg Haloperidol Lactate (Haloperidol Lactate Oral Conc 10 Mg/5 Ml Oral.Conc) 5 mg PO DAILY [facility] Hydroxyzine HCl (Hydroxyzine Hcl 25 Mg Tablet) 25 mg PO Q6H PRN PRN Reason: Anxiety Lidocaine (Lidocaine 4 % Patch Adh..Patch) 2 patch TRANSDERMA DAILY [facility]; Protocol Last Admin: 11/28/22 12:05 Dose: Not Given Magnesium Hydroxide (Milk Of Magnesia 30 Ml Oral.Susp) 30 ml PO DAILY PRN PRN Reason: Constipation Olanzapine (Olanzapine Odt 10 Mg Tab.Rapdis) 10 mg TRANSLINGU Q6H PRN PRN Reason: agitation Last Admin: 10/31/22 14:30 Dose: 10 mg Senna/Docusate Sodium (Sennosides/Docusate Sodium Tablet) 1 tab PO BEDTIME@1800 [facility] Last Admin: 11/28/22 18:14 Dose: Not Given Trazodone HCl (Trazodone Hcl 50 Mg Tablet) 50 mg PO BEDTIME PRN PRN Reason: Insomnia Last Admin: 11/05/22 21:37 Dose: 50 mg Allergies Allergies Allergy/AdvReac Type Severity Reaction Status Date / Time No Known Allergies Allergy Verified 10/24/22 13:55 Assessment & Plan Assessment & Plan (1) Schizophrenia, paranoid, chronic with acute exacerbation: Status: Acute Code(s): F20.0 - Paranoid schizophrenia Plan Mrs. Sahni is a 77 year-old Wallisian woman who apparently has long hx of paranoia/psychosis large untreated for decades until 2019 when she presented with increase combative behaviors secondary to paranoid, psychosis. She had been admitted to [facility] in 2019 and given Invega sustenna per records with good effect. Per daughter she has not been on antipsychotics since she was discharged from the hospital. Pt was given Invega Sustenna 117.5mg IM on 10/16/22 at [place] while waiting for psychiatric bed to come. Pt does not appear to have capacity to make medical decisions at this time. Daughter is healthcare proxy, which has been invoked. PLAN 10/27 Continue tx including haldol 2.5mg po BID. Pt received last Invega Sustenna 117 mg IM on 10/16, declines second loading FIGUEROA of invega at this point. 10/28 continue tx. 10/29 continue tx. 10/30 increase haldol to 3mg po BID 10/31 increase haldol to 5mg po BID as it is less pills per pt request and fact that she continues to present floridly psychotic. 11/01/22 cont plan of care 11/02 continue tx. 11/03 petition for involuntary commitment sent to court. Pt on sect 7. 11/04 remains focused on discharge and otherwise difficult with which to engage; continue current treatment plan, though has been refusing medications 11/05 continue current tx plan 11/06 continue same treatment 11/07 continue same treatment 11/08 continue tx. 11/[address] hearing to affirm HCP scheduled for tomorrow. 11/11/2022 Patient has affirmed healthcare proxy encourage medication compliance 11/13 continue same treatment 11/14 continue same treatment 11/15 continue same treatment 11/16 continue same treatment 11/17 continue same treatment 11/18 continue same treatment 11/19 continue same treatment 11/21 continue same treatment 11/20 continue same treatment 11/22 continue tx. 11/23 continue same treatment 11/23 keep Haldol 5 mg only in the morning. Rest the same 11/25: Continue current tx plan. 11/26: Continue current tx plan. 11/27 waiting for placement 11/28 waiting for placement Reason for continued inpatient stay Substantial Risk for: inability to function, rapid decompensation and med/psych decompensation Time Spent With Patient Time: Total time managing care of this patient today __20__ minutes.
[2022-11-29] MEDS: Haloperidol Lactate Oral Conc 10 MG/5 ML ORAL.CONC 5 MG PO (09:27)
[2022-11-29] MEDS: amLODIPine Besylate 2.5 MG TABLET PO (09:27)
[2022-11-29] MEDS: Aspirin 81 MG TAB.CHEW PO (09:27)
[2022-11-29] MEDS: Cyanocobalamin (Vitamin B-12) 1,000 MCG TABLET 1000 MCG PO (09:27)
[2022-11-29] MEDS: Atorvastatin Calcium 20 MG TABLET PO (17:39)
[2022-11-29] MEDS: Sennosides/Docusate Sodium TABLET 1 TAB PO (17:39)
[2022-11-30 07:00] VITALS: BMI 26.7
[2022-11-30 07:30] VITALS: BP 132/64; PULSE 75; RESP 18; TEMP 36.2; O2SAT 98
--- NOTE | 2022-11-30 15:25 | HO.PSYCHPN ---
Subjective Subjective Date of Service: 11/30/22 Reason For Visit: F03.90 F03.9 Subjective Notes: Conditional Voluntary Interim History: The nursing staff reported the patient refused medications today but yesterday she took them without any problems. She remains pleasantly confused. On interview the patient denies new symptoms she wants to go home but so far there is no safe discharge plan. Mental Status Exam Mental Status Exam Patient Appearance: Well Grooomed and Appropriate Patient Orientation: Person and Situation Level of Consciousness: Awake and Appropriate Patient Behavior: Guarded and Cooperative Mood Description: Calm Affect Description: Constricted Patient Cognition Impaired: Yes Ability to Follow Directions: Good Speech Pattern: Clear Hallucinations: None Delusions: Not Present Thought Process: Illogical Thought Content: positive for [place] Judgement: Fair Diagnostics Vital Signs (24Hr): Vital Signs - 24 hr 11/30/22 07:30 Temperature 97.2 F Pulse Rate 75 Respiratory Rate 18 Blood Pressure 132/64 Pulse Oximetry 98 Oxygen Delivery Method Room Air BMI result Body Mass Index 26.7 Labs 10/25/22 08:09 10/25/22 08:09 Medications Medications Current Medications Acetaminophen (Acetaminophen 325 Mg Tablet) 650 mg PO Q6H PRN PRN Reason: Headache/Pain Mild Scale (1-3) Al Hydroxide/Mg Hydroxide (Magnesium Hydrox/Alum Hydrox 30 Ml Oral.Susp) 30 ml PO Q6H PRN PRN Reason: Heartburn/Nausea Last Admin: 11/18/22 17:37 Dose: 30 ml Amlodipine Besylate (Amlodipine Besylate 2.5 Mg Tablet) 2.5 mg PO DAILY [facility]; Protocol Last Admin: 11/30/22 08:29 Dose: Not Given Aspirin (Aspirin 81 Mg Tab.Chew) 81 mg PO DAILY [facility] Last Admin: 11/30/22 08:29 Dose: Not Given Atorvastatin Calcium (Atorvastatin Calcium 20 Mg Tablet) 20 mg PO BEDTIME@1800 [facility] Last Admin: 11/29/22 17:39 Dose: 20 mg Cyanocobalamin (Cyanocobalamin (Vitamin B-12) 1,000 Mcg Tablet) 1,000 mcg PO DAILY [facility] Last Admin: 11/30/22 08:29 Dose: Not Given Haloperidol Lactate (Haloperidol Lactate Oral Conc 10 Mg/5 Ml Oral.Conc) 5 mg PO DAILY [facility] Last Admin: 11/30/22 08:29 Dose: Not Given Hydroxyzine HCl (Hydroxyzine Hcl 25 Mg Tablet) 25 mg PO Q6H PRN PRN Reason: Anxiety Lidocaine (Lidocaine 4 % Patch Adh..Patch) 2 patch TRANSDERMA DAILY [facility]; Protocol Last Admin: 11/30/22 08:30 Dose: Not Given Magnesium Hydroxide (Milk Of Magnesia 30 Ml Oral.Susp) 30 ml PO DAILY PRN PRN Reason: Constipation Olanzapine (Olanzapine Odt 10 Mg Tab.Rapdis) 10 mg TRANSLINGU Q6H PRN PRN Reason: agitation Last Admin: 10/31/22 14:30 Dose: 10 mg Senna/Docusate Sodium (Sennosides/Docusate Sodium Tablet) 1 tab PO BEDTIME@1800 [facility] Last Admin: 11/29/22 17:39 Dose: 1 tab Trazodone HCl (Trazodone Hcl 50 Mg Tablet) 50 mg PO BEDTIME PRN PRN Reason: Insomnia Last Admin: 11/05/22 21:37 Dose: 50 mg Allergies Allergies Allergy/AdvReac Type Severity Reaction Status Date / Time No Known Allergies Allergy Verified 10/24/22 13:55 Assessment & Plan Assessment & Plan (1) Schizophrenia, paranoid, chronic with acute exacerbation: Status: Acute Code(s): F20.0 - Paranoid schizophrenia Plan Mrs. Sahni is a 77 year-old [place] woman who apparently has long hx of paranoia/psychosis large untreated for decades until 2019 when she presented with increase combative behaviors secondary to paranoid, psychosis. She had been admitted to [facility] in 2019 and given Invega sustenna per records with good effect. Per daughter she has not been on antipsychotics since she was discharged from the hospital. Pt was given Invega Sustenna 117.5mg IM on 10/16/22 at [place] while waiting for psychiatric bed to come. Pt does not appear to have capacity to make medical decisions at this time. Daughter is healthcare proxy, which has been invoked. PLAN 10/27 Continue tx including haldol 2.5mg po BID. Pt received last Invega Sustenna 117 mg IM on 10/16, declines second loading FIGUEROA of invega at this point. 10/28 continue tx. 10/29 continue tx. 10/30 increase haldol to 3mg po BID 10/31 increase haldol to 5mg po BID as it is less pills per pt request and fact that she continues to present floridly psychotic. 11/01/22 cont plan of care 11/02 continue tx. 11/03 petition for involuntary commitment sent to court. Pt on sect 7. 11/04 remains focused on discharge and otherwise difficult with which to engage; continue current treatment plan, though has been refusing medications 11/05 continue current tx plan 11/06 continue same treatment 11/07 continue same treatment 11/08 continue tx. 11/[address] hearing to affirm HCP scheduled for tomorrow. 11/11/2022 Patient has affirmed healthcare proxy encourage medication compliance 11/13 continue same treatment 11/14 continue same treatment 11/15 continue same treatment 11/16 continue same treatment 11/17 continue same treatment 11/18 continue same treatment 11/19 continue same treatment 11/21 continue same treatment 11/20 continue same treatment 11/22 continue tx. 11/23 continue same treatment 11/23 keep Haldol 5 mg only in the morning. Rest the same 11/25: Continue current tx plan. 11/26: Continue current tx plan. 11/27 waiting for placement 11/28 waiting for placement 03/02 waiting for placement Reason for continued inpatient stay Substantial Risk for: inability to function, rapid decompensation and med/psych decompensation Time Spent With Patient Time: Total time managing care of this patient today __20__ minutes.
[2022-11-30 18:00] VITALS: BP 128/59; PULSE 77; RESP 18; TEMP 36.1; O2SAT 98
--- NOTE | 2022-11-30 18:33 | PC.NURSE ---
pt refused morning and afternoon medications, stated get away from me, I dont want them
[2022-12-01 08:00] VITALS: BP 117/63; PULSE 91; RESP 18; TEMP 36; O2SAT 97
--- NOTE | 2022-12-01 12:21 | HO.PSYCHPN ---
Subjective Subjective Date of Service: 12/01/22 Reason For Visit: F03.90 F03.9 Subjective Notes: Conditional Voluntary Interim History: The nursing staff reported the patient slept well she has refused medications but she had been common cooperative. The child welfare social worker reported that her daughter will come on Sunday. On interview the patient denies new symptoms, internally preoccupied but easily redirectable. Mental Status Exam Mental Status Exam Patient Appearance: Well Grooomed Patient Orientation: Person Level of Consciousness: Awake Patient Behavior: Guarded and Passive Mood Description: Withdrawn Affect Description: Constricted Patient Cognition Impaired: Yes Ability to Follow Directions: Good Speech Pattern: Clear Hallucinations: None Delusions: Not Present Thought Process: Linear Thought Content: positive for Circumstantial Judgement: Fair Diagnostics Vital Signs (24Hr): Vital Signs - 24 hr 11/30/22 18:00 12/01/22 08:00 Temperature 96.9 F 96.8 F Pulse Rate 77 91 Respiratory Rate 18 18 Blood Pressure 128/59 L 117/63 Pulse Oximetry 98 97 Oxygen Delivery Method Room Air Room Air BMI result Body Mass Index 26.7 Labs 10/25/22 08:09 10/25/22 08:09 Medications Medications Current Medications Acetaminophen (Acetaminophen 325 Mg Tablet) 650 mg PO Q6H PRN PRN Reason: Headache/Pain Mild Scale (1-3) Al Hydroxide/Mg Hydroxide (Magnesium Hydrox/Alum Hydrox 30 Ml Oral.Susp) 30 ml PO Q6H PRN PRN Reason: Heartburn/Nausea Last Admin: 11/18/22 17:37 Dose: 30 ml Amlodipine Besylate (Amlodipine Besylate 2.5 Mg Tablet) 2.5 mg PO DAILY [facility]; Protocol Last Admin: 12/01/22 08:59 Dose: Not Given Aspirin (Aspirin 81 Mg Tab.Chew) 81 mg PO DAILY [facility] Last Admin: 12/01/22 09:00 Dose: Not Given Atorvastatin Calcium (Atorvastatin Calcium 20 Mg Tablet) 20 mg PO BEDTIME@1800 [facility] Last Admin: 11/30/22 18:03 Dose: Not Given Cyanocobalamin (Cyanocobalamin (Vitamin B-12) 1,000 Mcg Tablet) 1,000 mcg PO DAILY [facility] Last Admin: 12/01/22 09:00 Dose: Not Given Haloperidol Lactate (Haloperidol Lactate Oral Conc 10 Mg/5 Ml Oral.Conc) 5 mg PO DAILY [facility] Last Admin: 12/01/22 08:49 Dose: Not Given Hydroxyzine HCl (Hydroxyzine Hcl 25 Mg Tablet) 25 mg PO Q6H PRN PRN Reason: Anxiety Lidocaine (Lidocaine 4 % Patch Adh..Patch) 2 patch TRANSDERMA DAILY [facility]; Protocol Last Admin: 12/01/22 09:00 Dose: Not Given Magnesium Hydroxide (Milk Of Magnesia 30 Ml Oral.Susp) 30 ml PO DAILY PRN PRN Reason: Constipation Olanzapine (Olanzapine Odt 10 Mg Tab.Rapdis) 10 mg TRANSLINGU Q6H PRN PRN Reason: agitation Last Admin: 10/31/22 14:30 Dose: 10 mg Senna/Docusate Sodium (Sennosides/Docusate Sodium Tablet) 1 tab PO BEDTIME@1800 [facility] Last Admin: 11/30/22 18:03 Dose: Not Given Trazodone HCl (Trazodone Hcl 50 Mg Tablet) 50 mg PO BEDTIME PRN PRN Reason: Insomnia Last Admin: 11/05/22 21:37 Dose: 50 mg Allergies Allergies Allergy/AdvReac Type Severity Reaction Status Date / Time No Known Allergies Allergy Verified 10/24/22 13:55 Assessment & Plan Assessment & Plan (1) Schizophrenia, paranoid, chronic with acute exacerbation: Status: Acute Code(s): F20.0 - Paranoid schizophrenia Plan Mrs. Sahni is a 77 year-old [place] woman who apparently has long hx of paranoia/psychosis large untreated for decades until 2019 when she presented with increase combative behaviors secondary to paranoid, psychosis. She had been admitted to [facility] in 2019 and given Invega sustenna per records with good effect. Per daughter she has not been on antipsychotics since she was discharged from the hospital. Pt was given Invega Sustenna 117.5mg IM on 10/16/22 at [place] while waiting for psychiatric bed to come. Pt does not appear to have capacity to make medical decisions at this time. Daughter is healthcare proxy, which has been invoked. PLAN 10/27 Continue tx including haldol 2.5mg po BID. Pt received last Invega Sustenna 117 mg IM on 10/16, declines second loading FIGUEROA of invega at this point. 10/28 continue tx. 10/29 continue tx. 10/30 increase haldol to 3mg po BID 10/31 increase haldol to 5mg po BID as it is less pills per pt request and fact that she continues to present floridly psychotic. 11/01/22 cont plan of care 11/02 continue tx. 11/03 petition for involuntary commitment sent to court. Pt on sect 7. 11/04 remains focused on discharge and otherwise difficult with which to engage; continue current treatment plan, though has been refusing medications 11/05 continue current tx plan 11/06 continue same treatment 11/07 continue same treatment 11/08 continue tx. 11/[address] hearing to affirm HCP scheduled for tomorrow. 11/11/2022 Patient has affirmed healthcare proxy encourage medication compliance 11/13 continue same treatment 11/14 continue same treatment 11/15 continue same treatment 11/16 continue same treatment 11/17 continue same treatment 11/18 continue same treatment 11/19 continue same treatment 11/21 continue same treatment 11/20 continue same treatment 11/22 continue tx. 11/23 continue same treatment 11/23 keep Haldol 5 mg only in the morning. Rest the same 11/25: Continue current tx plan. 11/26: Continue current tx plan. 11/27 waiting for placement 11/28 waiting for placement 03/02 waiting for placement Reason for continued inpatient stay Substantial Risk for: inability to function, rapid decompensation and med/psych decompensation Time Spent With Patient Time: Total time managing care of this patient today ____ minutes.
[2022-12-02 08:00] VITALS: BP 163/72; PULSE 91; RESP 18; TEMP 36; O2SAT 96
[2022-12-02] MEDS: Aspirin 81 MG TAB.CHEW PO (08:59)
[2022-12-02] MEDS: amLODIPine Besylate 2.5 MG TABLET PO (08:59)
[2022-12-02] MEDS: Cyanocobalamin (Vitamin B-12) 1,000 MCG TABLET 1000 MCG PO (08:59)
[2022-12-02] MEDS: Haloperidol Lactate Oral Conc 10 MG/5 ML ORAL.CONC 5 MG PO (08:59)
[2022-12-02] MEDS: Lidocaine 4 % Patch ADH..PATCH 2 PATCH TRANSDERMA (09:03)
[2022-12-02] MEDS: Acetaminophen 325 MG TABLET 650 MG PO (16:04)
--- NOTE | 2022-12-02 16:45 | HO.PSYCHPN ---
Subjective Subjective Date of Service: 12/02/22 Reason For Visit: F03.90 F03.9 Interim History: met with patient;discussed with team Pt asking for gas pill regarding for flatuance. Pt also complained weakness on her elbows and knees. She denies any pain and is ambulating as normally. Mental Status Exam Mental Status Exam Patient Appearance: Well Grooomed Patient Orientation: Person Level of Consciousness: Awake Patient Behavior: Guarded and Passive Mood Description: Withdrawn Affect Description: Constricted Patient Cognition Impaired: Yes Ability to Follow Directions: Good Speech Pattern: Clear Hallucinations: None Delusions: Not Present Thought Process: Linear Thought Content: positive for Circumstantial Judgement: Fair Diagnostics Vital Signs (24Hr): Vital Signs - 24 hr 12/02/22 08:00 Temperature 96.8 F Pulse Rate 91 Respiratory Rate 18 Blood Pressure 163/72 H Pulse Oximetry 96 Oxygen Delivery Method Room Air BMI result Body Mass Index 26.7 Labs 10/25/22 08:09 10/25/22 08:09 Medications Medications Current Medications Acetaminophen (Acetaminophen 325 Mg Tablet) 650 mg PO Q6H PRN PRN Reason: Headache/Pain Mild Scale (1-3) Last Admin: 12/02/22 16:04 Dose: 650 mg Al Hydroxide/Mg Hydroxide (Magnesium Hydrox/Alum Hydrox 30 Ml Oral.Susp) 30 ml PO Q6H PRN PRN Reason: Heartburn/Nausea Last Admin: 11/18/22 17:37 Dose: 30 ml Amlodipine Besylate (Amlodipine Besylate 2.5 Mg Tablet) 2.5 mg PO DAILY [facility]; Protocol Last Admin: 12/02/22 08:59 Dose: 2.5 mg Aspirin (Aspirin 81 Mg Tab.Chew) 81 mg PO DAILY [facility] Last Admin: 12/02/22 08:59 Dose: 81 mg Atorvastatin Calcium (Atorvastatin Calcium 20 Mg Tablet) 20 mg PO BEDTIME@1800 [facility] Last Admin: 12/01/22 17:34 Dose: Not Given Cyanocobalamin (Cyanocobalamin (Vitamin B-12) 1,000 Mcg Tablet) 1,000 mcg PO DAILY [facility] Last Admin: 12/02/22 08:59 Dose: 1,000 mcg Haloperidol Lactate (Haloperidol Lactate Oral Conc 10 Mg/5 Ml Oral.Conc) 5 mg PO DAILY [facility] Last Admin: 12/02/22 08:59 Dose: 5 mg Hydroxyzine HCl (Hydroxyzine Hcl 25 Mg Tablet) 25 mg PO Q6H PRN PRN Reason: Anxiety Lidocaine (Lidocaine 4 % Patch Adh..Patch) 2 patch TRANSDERMA DAILY [facility]; Protocol Last Admin: 12/02/22 09:03 Dose: 2 patch Magnesium Hydroxide (Milk Of Magnesia 30 Ml Oral.Susp) 30 ml PO DAILY PRN PRN Reason: Constipation Olanzapine (Olanzapine Odt 10 Mg Tab.Rapdis) 10 mg TRANSLINGU Q6H PRN PRN Reason: agitation Last Admin: 10/31/22 14:30 Dose: 10 mg Senna/Docusate Sodium (Sennosides/Docusate Sodium Tablet) 1 tab PO BEDTIME@1800 [facility] Last Admin: 12/01/22 17:34 Dose: Not Given Trazodone HCl (Trazodone Hcl 50 Mg Tablet) 50 mg PO BEDTIME PRN PRN Reason: Insomnia Last Admin: 11/05/22 21:37 Dose: 50 mg Allergies Allergies Allergy/AdvReac Type Severity Reaction Status Date / Time No Known Allergies Allergy Verified 10/24/22 13:55 Assessment & Plan Assessment & Plan (1) Schizophrenia, paranoid, chronic with acute exacerbation: Status: Acute Code(s): F20.0 - Paranoid schizophrenia Plan Mrs. Sahni is a 77 year-old [place] woman who apparently has long hx of paranoia/psychosis large untreated for decades until 2019 when she presented with increase combative behaviors secondary to paranoid, psychosis. She had been admitted to [facility] in 2019 and given Invega sustenna per records with good effect. Per daughter she has not been on antipsychotics since she was discharged from the hospital. Pt was given Invega Sustenna 117.5mg IM on 10/16/22 at [place] while waiting for psychiatric bed to come. Pt does not appear to have capacity to make medical decisions at this time. Daughter is healthcare proxy, which has been invoked. PLAN 10/27 Continue tx including haldol 2.5mg po BID. Pt received last Invega Sustenna 117 mg IM on 10/16, declines second loading FIGUEROA of invega at this point. 10/28 continue tx. 10/29 continue tx. 10/30 increase haldol to 3mg po BID 10/31 increase haldol to 5mg po BID as it is less pills per pt request and fact that she continues to present floridly psychotic. 11/01/22 cont plan of care 11/02 continue tx. 11/03 petition for involuntary commitment sent to court. Pt on sect 7. 11/04 remains focused on discharge and otherwise difficult with which to engage; continue current treatment plan, though has been refusing medications 11/05 continue current tx plan 11/06 continue same treatment 11/07 continue same treatment 11/08 continue tx. 11/[address] hearing to affirm HCP scheduled for tomorrow. 11/11/2022 Patient has affirmed healthcare proxy encourage medication compliance 11/13 continue same treatment 11/14 continue same treatment 11/15 continue same treatment 11/16 continue same treatment 11/17 continue same treatment 11/18 continue same treatment 11/19 continue same treatment 11/21 continue same treatment 11/20 continue same treatment 11/22 continue tx. 11/23 continue same treatment 11/23 keep Haldol 5 mg only in the morning. Rest the same 11/25: Continue current tx plan. 11/26: Continue current tx plan. 11/27 waiting for placement 11/28 waiting for placement 03/02 waiting for placement 12/02 Pt asking for gas pill regarding for flatuance. Pt also complained weakness on her elbows and knees. She denies any pain and is ambulating as normally. -started Simethacone Patient educated on: diagnosis and medication risk/benefits Informed Consent: further education needed Reason for continued inpatient stay Substantial Risk for: med/psych decompensation Time Spent With Patient Time: Total time managing care of this patient today ____ minutes.
[2022-12-02] MEDS: Simethicone 80 MG TAB.CHEW PO (17:19)
[2022-12-02] MEDS: Atorvastatin Calcium 20 MG TABLET PO (17:20)
[2022-12-02] MEDS: Sennosides/Docusate Sodium TABLET 1 TAB PO (17:20)
[2022-12-02 18:00] VITALS: BP 156/68; PULSE 88; RESP 16; TEMP 36.2; O2SAT 97
[2022-12-03 06:00] VITALS: BP 129/65; PULSE 76; RESP 18; TEMP 36.1; O2SAT 97
[2022-12-03] MEDS: Cyanocobalamin (Vitamin B-12) 1,000 MCG TABLET 1000 MCG PO (08:16)
[2022-12-03] MEDS: Haloperidol Lactate Oral Conc 10 MG/5 ML ORAL.CONC 5 MG PO (08:16)
[2022-12-03] MEDS: Aspirin 81 MG TAB.CHEW PO (08:16)
[2022-12-03] MEDS: Sennosides/Docusate Sodium TABLET 1 TAB PO (17:24)
[2022-12-03] MEDS: Atorvastatin Calcium 20 MG TABLET PO (17:24)
[2022-12-03 18:00] VITALS: RESP 16
--- NOTE | 2022-12-03 18:15 | HO.PSYCHPN ---
Subjective Subjective Date of Service: 12/03/22 Reason For Visit: F03.90 F03.9 Interim History: met with patient; discussed with team same presentation; pt denied complaints to this check writer salesperson, but then said i dont' need medication. Hearing Stenographer discussed and pt agreed to continue taking medications. Of note, pt has been taking her meds these past days Mental Status Exam Mental Status Exam Patient Appearance: Well Grooomed Patient Orientation: Person Level of Consciousness: Awake Patient Behavior: Guarded and Passive Mood Description: Withdrawn Affect Description: Constricted Patient Cognition Impaired: Yes Ability to Follow Directions: Good Speech Pattern: Clear Hallucinations: None Delusions: Not Present Thought Process: Linear Thought Content: positive for Circumstantial Judgement: Fair Diagnostics Vital Signs (24Hr): Vital Signs - 24 hr 12/03/22 06:00 Temperature 96.9 F Pulse Rate 76 Respiratory Rate 18 Blood Pressure 129/65 Pulse Oximetry 97 Oxygen Delivery Method Room Air BMI result Body Mass Index 26.7 Labs 10/25/22 08:09 10/25/22 08:09 Medications Medications Current Medications Acetaminophen (Acetaminophen 325 Mg Tablet) 650 mg PO Q6H PRN PRN Reason: Headache/Pain Mild Scale (1-3) Last Admin: 12/02/22 16:04 Dose: 650 mg Al Hydroxide/Mg Hydroxide (Magnesium Hydrox/Alum Hydrox 30 Ml Oral.Susp) 30 ml PO Q6H PRN PRN Reason: Heartburn/Nausea Last Admin: 11/18/22 17:37 Dose: 30 ml Amlodipine Besylate (Amlodipine Besylate 2.5 Mg Tablet) 2.5 mg PO DAILY [facility]; Protocol Last Admin: 12/03/22 08:21 Dose: Not Given Aspirin (Aspirin 81 Mg Tab.Chew) 81 mg PO DAILY [facility] Last Admin: 12/03/22 08:16 Dose: 81 mg Atorvastatin Calcium (Atorvastatin Calcium 20 Mg Tablet) 20 mg PO BEDTIME@1800 [facility] Last Admin: 12/03/22 17:24 Dose: 20 mg Cyanocobalamin (Cyanocobalamin (Vitamin B-12) 1,000 Mcg Tablet) 1,000 mcg PO DAILY [facility] Last Admin: 12/03/22 08:16 Dose: 1,000 mcg Haloperidol Lactate (Haloperidol Lactate Oral Conc 10 Mg/5 Ml Oral.Conc) 5 mg PO DAILY [facility] Last Admin: 12/03/22 08:16 Dose: 5 mg Hydroxyzine HCl (Hydroxyzine Hcl 25 Mg Tablet) 25 mg PO Q6H PRN PRN Reason: Anxiety Lidocaine (Lidocaine 4 % Patch Adh..Patch) 2 patch TRANSDERMA DAILY [facility]; Protocol Last Admin: 12/03/22 09:09 Dose: Not Given Magnesium Hydroxide (Milk Of Magnesia 30 Ml Oral.Susp) 30 ml PO DAILY PRN PRN Reason: Constipation Olanzapine (Olanzapine Odt 10 Mg Tab.Rapdis) 10 mg TRANSLINGU Q6H PRN PRN Reason: agitation Last Admin: 10/31/22 14:30 Dose: 10 mg Senna/Docusate Sodium (Sennosides/Docusate Sodium Tablet) 1 tab PO BEDTIME@1800 [facility] Last Admin: 12/03/22 17:24 Dose: 1 tab Simethicone (Simethicone 80 Mg Tab.Chew) 80 mg PO QIDWMHS PRN PRN Reason: flatulance Trazodone HCl (Trazodone Hcl 50 Mg Tablet) 50 mg PO BEDTIME PRN PRN Reason: Insomnia Last Admin: 11/05/22 21:37 Dose: 50 mg Allergies Allergies Allergy/AdvReac Type Severity Reaction Status Date / Time No Known Allergies Allergy Verified 10/24/22 13:55 Assessment & Plan Assessment & Plan (1) Schizophrenia, paranoid, chronic with acute exacerbation: Status: Acute Code(s): F20.0 - Paranoid schizophrenia Plan Mrs. Sahni is a 77 year-old [place] woman who apparently has long hx of paranoia/psychosis large untreated for decades until 2019 when she presented with increase combative behaviors secondary to paranoid, psychosis. She had been admitted to [facility] in 2019 and given Invega sustenna per records with good effect. Per daughter she has not been on antipsychotics since she was discharged from the hospital. Pt was given Invega Sustenna 117.5mg IM on 10/16/22 at [place] while waiting for psychiatric bed to come. Pt does not appear to have capacity to make medical decisions at this time. Daughter is healthcare proxy, which has been invoked. PLAN 10/27 Continue tx including haldol 2.5mg po BID. Pt received last Invega Sustenna 117 mg IM on 10/16, declines second loading FIGUEROA of invega at this point. 10/28 continue tx. 10/29 continue tx. 10/30 increase haldol to 3mg po BID 10/31 increase haldol to 5mg po BID as it is less pills per pt request and fact that she continues to present floridly psychotic. 11/01/22 cont plan of care 11/02 continue tx. 11/03 petition for involuntary commitment sent to court. Pt on sect 7. 11/04 remains focused on discharge and otherwise difficult with which to engage; continue current treatment plan, though has been refusing medications 11/05 continue current tx plan 11/06 continue same treatment 11/07 continue same treatment 11/08 continue tx. 11/[address] hearing to affirm HCP scheduled for tomorrow. 11/11/2022 Patient has affirmed healthcare proxy encourage medication compliance 11/13 continue same treatment 11/14 continue same treatment 11/15 continue same treatment 11/16 continue same treatment 11/17 continue same treatment 11/18 continue same treatment 11/19 continue same treatment 11/21 continue same treatment 11/20 continue same treatment 11/22 continue tx. 11/23 continue same treatment 11/23 keep Haldol 5 mg only in the morning. Rest the same 11/25: Continue current tx plan. 11/26: Continue current tx plan. 11/27 waiting for placement 11/28 waiting for placement 03/02 waiting for placement 12/02 Pt asking for gas pill regarding for flatuance. Pt also complained weakness on her elbows and knees. She denies any pain and is ambulating as normally. -started Simethacone 12/03 continue current tx plan Reason for continued inpatient stay Substantial Risk for: med/psych decompensation Time Spent With Patient Time: Total time managing care of this patient today ____ minutes.
[2022-12-04 06:00] VITALS: BP 136/60; PULSE 84; RESP 17; TEMP 36.1; O2SAT 95
--- NOTE | 2022-12-04 08:23 | HO.PSYCHPN ---
Subjective Subjective Date of Service: 12/04/22 Reason For Visit: F03.90 F03.9 Subjective Notes: Conditional Voluntary Interim History: The nursing staff reported the patient had been seclusive in his room most of the time. Yesterday her daughter and family came expecting to have a family meeting. On interview the patient looks internally preoccupied, denies new symptoms Mental Status Exam Mental Status Exam Patient Appearance: Appropriate Patient Orientation: Person Level of Consciousness: Awake Patient Behavior: Guarded and Passive Mood Description: Withdrawn Affect Description: Labile Patient Cognition Impaired: Yes Ability to Follow Directions: Fair Speech Pattern: Clear Hallucinations: None Delusions: Paranoid Ideation Thought Process: Illogical, Distracted and Slowed Thinking Thought Content: positive for [place] Judgement: Poor Diagnostics Vital Signs (24Hr): Vital Signs - 24 hr 12/03/22 18:00 Respiratory Rate 16 BMI result Body Mass Index 26.7 Labs 10/25/22 08:09 10/25/22 08:09 Medications Medications Current Medications Acetaminophen (Acetaminophen 325 Mg Tablet) 650 mg PO Q6H PRN PRN Reason: Headache/Pain Mild Scale (1-3) Last Admin: 12/02/22 16:04 Dose: 650 mg Al Hydroxide/Mg Hydroxide (Magnesium Hydrox/Alum Hydrox 30 Ml Oral.Susp) 30 ml PO Q6H PRN PRN Reason: Heartburn/Nausea Last Admin: 11/18/22 17:37 Dose: 30 ml Amlodipine Besylate (Amlodipine Besylate 2.5 Mg Tablet) 2.5 mg PO DAILY [facility]; Protocol Last Admin: 12/03/22 08:21 Dose: Not Given Aspirin (Aspirin 81 Mg Tab.Chew) 81 mg PO DAILY [facility] Last Admin: 12/03/22 08:16 Dose: 81 mg Atorvastatin Calcium (Atorvastatin Calcium 20 Mg Tablet) 20 mg PO BEDTIME@1800 [facility] Last Admin: 12/03/22 17:24 Dose: 20 mg Cyanocobalamin (Cyanocobalamin (Vitamin B-12) 1,000 Mcg Tablet) 1,000 mcg PO DAILY [facility] Last Admin: 12/03/22 08:16 Dose: 1,000 mcg Haloperidol Lactate (Haloperidol Lactate Oral Conc 10 Mg/5 Ml Oral.Conc) 5 mg PO DAILY [facility] Last Admin: 12/03/22 08:16 Dose: 5 mg Hydroxyzine HCl (Hydroxyzine Hcl 25 Mg Tablet) 25 mg PO Q6H PRN PRN Reason: Anxiety Lidocaine (Lidocaine 4 % Patch Adh..Patch) 2 patch TRANSDERMA DAILY [facility]; Protocol Last Admin: 12/03/22 09:09 Dose: Not Given Magnesium Hydroxide (Milk Of Magnesia 30 Ml Oral.Susp) 30 ml PO DAILY PRN PRN Reason: Constipation Olanzapine (Olanzapine Odt 10 Mg Tab.Rapdis) 10 mg TRANSLINGU Q6H PRN PRN Reason: agitation Last Admin: 10/31/22 14:30 Dose: 10 mg Senna/Docusate Sodium (Sennosides/Docusate Sodium Tablet) 1 tab PO BEDTIME@1800 [facility] Last Admin: 12/03/22 17:24 Dose: 1 tab Simethicone (Simethicone 80 Mg Tab.Chew) 80 mg PO QIDWMHS PRN PRN Reason: flatulance Trazodone HCl (Trazodone Hcl 50 Mg Tablet) 50 mg PO BEDTIME PRN PRN Reason: Insomnia Last Admin: 11/05/22 21:37 Dose: 50 mg Allergies Allergies Allergy/AdvReac Type Severity Reaction Status Date / Time No Known Allergies Allergy Verified 10/24/22 13:55 Assessment & Plan Assessment & Plan (1) Schizophrenia, paranoid, chronic with acute exacerbation: Status: Acute Code(s): F20.0 - Paranoid schizophrenia Plan Mrs. Sahni is a 77 year-old [place] woman who apparently has long hx of paranoia/psychosis large untreated for decades until 2019 when she presented with increase combative behaviors secondary to paranoid, psychosis. She had been admitted to [facility] in 2019 and given Invega sustenna per records with good effect. Per daughter she has not been on antipsychotics since she was discharged from the hospital. Pt was given Invega Sustenna 117.5mg IM on 10/16/22 at [place] while waiting for psychiatric bed to come. Pt does not appear to have capacity to make medical decisions at this time. Daughter is healthcare proxy, which has been invoked. PLAN 1. Continue with same treatment. 2. Waiting for placement. Reason for continued inpatient stay Substantial Risk for: inability to function, rapid decompensation and med/psych decompensation Time Spent With Patient Time: Total time managing care of this patient today __20__ minutes.
[2022-12-04] MEDS: Haloperidol Lactate Oral Conc 10 MG/5 ML ORAL.CONC 5 MG PO (09:00)
[2022-12-04] MEDS: Cyanocobalamin (Vitamin B-12) 1,000 MCG TABLET 1000 MCG PO (09:04)
[2022-12-04] MEDS: Milk of Magnesia 30 ML ORAL.SUSP PO (09:20)
[2022-12-05 08:30] VITALS: BP 142/70; PULSE 89; RESP 16; TEMP 36.2; O2SAT 97
[2022-12-05] MEDS: Aspirin 81 MG TAB.CHEW PO (09:06)
[2022-12-05] MEDS: Cyanocobalamin (Vitamin B-12) 1,000 MCG TABLET 1000 MCG PO (09:06)
[2022-12-05] MEDS: Haloperidol Lactate Oral Conc 10 MG/5 ML ORAL.CONC 5 MG PO (09:07)
--- NOTE | 2022-12-05 16:36 | P.PNPSI_ITS ---
Subjective Subjective Date of Service: 12/05/22 Reason For Visit: F03.90 F03.9 Subjective Notes: Conditional Voluntary Interim History: The nursing staff reported the patient did not have any verbal outburst, she had been pleasantly confused and redirectable. Today we had a family meeting with her daughter and explained that we need to discharge her soon as possible. Mental Status Exam Mental Status Exam Patient Appearance: Well Grooomed and Appropriate Patient Orientation: Person and Situation Level of Consciousness: Awake and Appropriate Patient Behavior: Guarded and Passive Mood Description: Withdrawn Affect Description: Constricted Patient Cognition Impaired: Yes Ability to Follow Directions: Good Speech Pattern: Clear Hallucinations: None Delusions: Not Present Thought Process: Distracted and Linear Judgement: Fair Diagnostics Vital Signs (24Hr): Vital Signs - 24 hr 12/05/22 08:30 Temperature 97.1 F Pulse Rate 89 Respiratory Rate 16 Blood Pressure 142/70 H Pulse Oximetry 97 Oxygen Delivery Method Room Air BMI result Body Mass Index 26.7 Labs 10/25/22 08:09 10/25/22 08:09 Medications Medications Current Medications Acetaminophen (Acetaminophen 325 Mg Tablet) 650 mg PO Q6H PRN PRN Reason: Headache/Pain Mild Scale (1-3) Last Admin: 12/02/22 16:04 Dose: 650 mg Al Hydroxide/Mg Hydroxide (Magnesium Hydrox/Alum Hydrox 30 Ml Oral.Susp) 30 ml PO Q6H PRN PRN Reason: Heartburn/Nausea Last Admin: 11/18/22 17:37 Dose: 30 ml Amlodipine Besylate (Amlodipine Besylate 2.5 Mg Tablet) 2.5 mg PO DAILY [facility]; Protocol Last Admin: 12/05/22 09:59 Dose: Not Given Aspirin (Aspirin 81 Mg Tab.Chew) 81 mg PO DAILY [facility] Last Admin: 12/05/22 09:06 Dose: 81 mg Atorvastatin Calcium (Atorvastatin Calcium 20 Mg Tablet) 20 mg PO BEDTIME@1800 [facility] Last Admin: 12/04/22 18:03 Dose: Not Given Cyanocobalamin (Cyanocobalamin (Vitamin B-12) 1,000 Mcg Tablet) 1,000 mcg PO DAILY [facility] Last Admin: 12/05/22 09:06 Dose: 1,000 mcg Haloperidol Lactate (Haloperidol Lactate Oral Conc 10 Mg/5 Ml Oral.Conc) 5 mg PO DAILY [facility] Last Admin: 12/05/22 09:07 Dose: 5 mg Hydroxyzine HCl (Hydroxyzine Hcl 25 Mg Tablet) 25 mg PO Q6H PRN PRN Reason: Anxiety Lidocaine (Lidocaine 4 % Patch Adh..Patch) 2 patch TRANSDERMA DAILY [facility]; Protocol Last Admin: 12/05/22 09:09 Dose: Not Given Magnesium Hydroxide (Milk Of Magnesia 30 Ml Oral.Susp) 30 ml PO DAILY PRN PRN Reason: Constipation Last Admin: 12/04/22 09:20 Dose: 30 ml Olanzapine (Olanzapine Odt 10 Mg Tab.Rapdis) 10 mg TRANSLINGU Q6H PRN PRN Reason: agitation Last Admin: 10/31/22 14:30 Dose: 10 mg Senna/Docusate Sodium (Sennosides/Docusate Sodium Tablet) 1 tab PO BEDTIME@1800 [facility] Last Admin: 12/04/22 18:03 Dose: Not Given Simethicone (Simethicone 80 Mg Tab.Chew) 80 mg PO QIDWMHS PRN PRN Reason: flatulance Trazodone HCl (Trazodone Hcl 50 Mg Tablet) 50 mg PO BEDTIME PRN PRN Reason: Insomnia Last Admin: 11/05/22 21:37 Dose: 50 mg Allergies Allergies Allergy/AdvReac Type Severity Reaction Status Date / Time No Known Allergies Allergy Verified 10/24/22 13:55 Assessment & Plan Assessment & Plan (1) Schizophrenia, paranoid, chronic with acute exacerbation: Status: Acute Code(s): F20.0 - Paranoid schizophrenia Plan Mrs. Sahni is a 77 year-old [place] woman who apparently has long hx of paranoia/psychosis large untreated for decades until 2019 when she presented with increase combative behaviors secondary to paranoid, psychosis. She had been admitted to [facility] in 2019 and given Invega sustenna per records with good effect. Per daughter she has not been on antipsychotics since she was discharged from the hospital. Pt was given Invega Sustenna 117.5mg IM on 10/16/22 at [place] while waiting for psychiatric bed to come. Pt does not appear to have capacity to make medical decisions at this time. Daughter is healthcare proxy, which has been invoked. PLAN 1. Continue with same treatment. 2. Waiting for placement. Reason for continued inpatient stay Substantial Risk for: inability to function, rapid decompensation and med/psych decompensation Time Spent With Patient Time: Total time managing care of this patient today ___20_ minutes.
--- NOTE | 2022-12-05 16:40 | HO.PSYCHPN ---
Subjective Subjective Reason For Visit: F03.90 F03.9 Diagnostics Vital Signs (24Hr): Vital Signs - 24 hr 12/05/22 08:30 Temperature 97.1 F Pulse Rate 89 Respiratory Rate 16 Blood Pressure 142/70 H Pulse Oximetry 97 Oxygen Delivery Method Room Air BMI result Body Mass Index 26.7 Labs 10/25/22 08:09 10/25/22 08:09 Medications Medications Current Medications Acetaminophen (Acetaminophen 325 Mg Tablet) 650 mg PO Q6H PRN PRN Reason: Headache/Pain Mild Scale (1-3) Last Admin: 12/02/22 16:04 Dose: 650 mg Al Hydroxide/Mg Hydroxide (Magnesium Hydrox/Alum Hydrox 30 Ml Oral.Susp) 30 ml PO Q6H PRN PRN Reason: Heartburn/Nausea Last Admin: 11/18/22 17:37 Dose: 30 ml Amlodipine Besylate (Amlodipine Besylate 2.5 Mg Tablet) 2.5 mg PO DAILY [facility]; Protocol Last Admin: 12/05/22 09:59 Dose: Not Given Aspirin (Aspirin 81 Mg Tab.Chew) 81 mg PO DAILY [facility] Last Admin: 12/05/22 09:06 Dose: 81 mg Atorvastatin Calcium (Atorvastatin Calcium 20 Mg Tablet) 20 mg PO BEDTIME@1800 [facility] Last Admin: 12/04/22 18:03 Dose: Not Given Cyanocobalamin (Cyanocobalamin (Vitamin B-12) 1,000 Mcg Tablet) 1,000 mcg PO DAILY [facility] Last Admin: 12/05/22 09:06 Dose: 1,000 mcg Haloperidol Lactate (Haloperidol Lactate Oral Conc 10 Mg/5 Ml Oral.Conc) 5 mg PO DAILY [facility] Last Admin: 12/05/22 09:07 Dose: 5 mg Hydroxyzine HCl (Hydroxyzine Hcl 25 Mg Tablet) 25 mg PO Q6H PRN PRN Reason: Anxiety Lidocaine (Lidocaine 4 % Patch Adh..Patch) 2 patch TRANSDERMA DAILY [facility]; Protocol Last Admin: 12/05/22 09:09 Dose: Not Given Magnesium Hydroxide (Milk Of Magnesia 30 Ml Oral.Susp) 30 ml PO DAILY PRN PRN Reason: Constipation Last Admin: 12/04/22 09:20 Dose: 30 ml Olanzapine (Olanzapine Odt 10 Mg Tab.Rapdis) 10 mg TRANSLINGU Q6H PRN PRN Reason: agitation Last Admin: 10/31/22 14:30 Dose: 10 mg Senna/Docusate Sodium (Sennosides/Docusate Sodium Tablet) 1 tab PO BEDTIME@1800 [facility] Last Admin: 12/04/22 18:03 Dose: Not Given Simethicone (Simethicone 80 Mg Tab.Chew) 80 mg PO QIDWMHS PRN PRN Reason: flatulance Trazodone HCl (Trazodone Hcl 50 Mg Tablet) 50 mg PO BEDTIME PRN PRN Reason: Insomnia Last Admin: 11/05/22 21:37 Dose: 50 mg Allergies Allergies Allergy/AdvReac Type Severity Reaction Status Date / Time No Known Allergies Allergy Verified 10/24/22 13:55 Assessment & Plan Assessment & Plan (1) Schizophrenia, paranoid, chronic with acute exacerbation: Status: Acute Code(s): F20.0 - Paranoid schizophrenia Plan Mrs. Sahni is a 77 year-old [place]ian woman who apparently has long hx of paranoia/psychosis large untreated for decades until 2019 when she presented with increase combative behaviors secondary to paranoid, psychosis. She had been admitted to [facility] in 2019 and given Invega sustenna per records with good effect. Per daughter she has not been on antipsychotics since she was discharged from the hospital. Pt was given Invega Sustenna 117.5mg IM on 10/16/22 at [place] while waiting for psychiatric bed to come. Pt does not appear to have capacity to make medical decisions at this time. Daughter is healthcare proxy, which has been invoked. PLAN 1. Continue with same treatment. 2. Waiting for placement. Time Spent With Patient Time: Total time managing care of this patient today ____ minutes.
[2022-12-06 06:00] VITALS: BP 133/60; PULSE 80; RESP 18; O2SAT 97
[2022-12-06] MEDS: Haloperidol Lactate Oral Conc 10 MG/5 ML ORAL.CONC 5 MG PO (08:58)
--- NOTE | 2022-12-06 13:39 | HO.PSYCHPN ---
Subjective Subjective Date of Service: 12/06/22 Reason For Visit: F03.90 F03.9 Subjective Notes: Conditional Voluntary Interim History: The nursing staff reported the patient had been guarded, isolative but time and cooperative. The school social worker reported the med with her daughter and they will discharge her next Sunday. On interview the patient denies new symptoms, internally preoccupied chronically psychotic but easily redirectable. Mental Status Exam Mental Status Exam Patient Appearance: Well Grooomed Patient Orientation: Person and Situation Level of Consciousness: Awake and Appropriate Patient Behavior: Guarded Mood Description: Withdrawn Affect Description: Constricted Patient Cognition Impaired: Yes Ability to Follow Directions: Good Speech Pattern: Clear Hallucinations: None Delusions: Not Present Thought Process: Linear Thought Content: positive for [place] Judgement: Fair Diagnostics Vital Signs (24Hr): Vital Signs - 24 hr 12/06/22 06:00 Pulse Rate 80 Respiratory Rate 18 Blood Pressure 133/60 Pulse Oximetry 97 Oxygen Delivery Method Room Air BMI result Body Mass Index 26.7 Labs 10/25/22 08:09 10/25/22 08:09 Medications Medications Current Medications Acetaminophen (Acetaminophen 325 Mg Tablet) 650 mg PO Q6H PRN PRN Reason: Headache/Pain Mild Scale (1-3) Last Admin: 12/02/22 16:04 Dose: 650 mg Al Hydroxide/Mg Hydroxide (Magnesium Hydrox/Alum Hydrox 30 Ml Oral.Susp) 30 ml PO Q6H PRN PRN Reason: Heartburn/Nausea Last Admin: 11/18/22 17:37 Dose: 30 ml Amlodipine Besylate (Amlodipine Besylate 2.5 Mg Tablet) 2.5 mg PO DAILY [facility]; Protocol Last Admin: 12/06/22 08:58 Dose: Not Given Aspirin (Aspirin 81 Mg Tab.Chew) 81 mg PO DAILY [facility] Last Admin: 12/06/22 08:58 Dose: Not Given Atorvastatin Calcium (Atorvastatin Calcium 20 Mg Tablet) 20 mg PO BEDTIME@1800 [facility] Last Admin: 12/05/22 19:28 Dose: Not Given Cyanocobalamin (Cyanocobalamin (Vitamin B-12) 1,000 Mcg Tablet) 1,000 mcg PO DAILY [facility] Last Admin: 12/06/22 08:58 Dose: Not Given Haloperidol Lactate (Haloperidol Lactate Oral Conc 10 Mg/5 Ml Oral.Conc) 5 mg PO DAILY [facility] Last Admin: 12/06/22 08:58 Dose: 5 mg Hydroxyzine HCl (Hydroxyzine Hcl 25 Mg Tablet) 25 mg PO Q6H PRN PRN Reason: Anxiety Lidocaine (Lidocaine 4 % Patch Adh..Patch) 2 patch TRANSDERMA DAILY [facility]; Protocol Last Admin: 12/06/22 09:00 Dose: Not Given Magnesium Hydroxide (Milk Of Magnesia 30 Ml Oral.Susp) 30 ml PO DAILY PRN PRN Reason: Constipation Last Admin: 12/04/22 09:20 Dose: 30 ml Olanzapine (Olanzapine Odt 10 Mg Tab.Rapdis) 10 mg TRANSLINGU Q6H PRN PRN Reason: agitation Last Admin: 10/31/22 14:30 Dose: 10 mg Senna/Docusate Sodium (Sennosides/Docusate Sodium Tablet) 1 tab PO BEDTIME@1800 [facility] Last Admin: 12/05/22 19:28 Dose: Not Given Simethicone (Simethicone 80 Mg Tab.Chew) 80 mg PO QIDWMHS PRN PRN Reason: flatulance Trazodone HCl (Trazodone Hcl 50 Mg Tablet) 50 mg PO BEDTIME PRN PRN Reason: Insomnia Last Admin: 11/05/22 21:37 Dose: 50 mg Allergies Allergies Allergy/AdvReac Type Severity Reaction Status Date / Time No Known Allergies Allergy Verified 10/24/22 13:55 Assessment & Plan Assessment & Plan (1) Schizophrenia, paranoid, chronic with acute exacerbation: Status: Acute Code(s): F20.0 - Paranoid schizophrenia Plan Elderly descent female, Creole speaking, with a long history of psychosis admitted for exacerbation of psychotic symptoms and agitation. Plan 1. Continue same treatment. 2. Waiting for placement Reason for continued inpatient stay Substantial Risk for: inability to function, rapid decompensation and med/psych decompensation Time Spent With Patient Time: Total time managing care of this patient today __20__ minutes.
[2022-12-06 18:00] VITALS: BP 124/78; PULSE 75; RESP 18; TEMP 36.2; O2SAT 98
--- NOTE | 2022-12-07 08:25 | HO.PSYCHPN ---
Subjective Subjective Date of Service: 12/07/22 Reason For Visit: F03.90 F03.9 Subjective Notes: Conditional Voluntary Interim History: The nursing staff reported the patient had been guarded, suspicious but very pleasant. The occupational therapist reported that she comes to groups and participates fairly well. The social research assistant reported that her daughter will come on Sunday to pick her up. On interview the patient denies new symptoms, waiting for safe discharge plan Mental Status Exam Mental Status Exam Patient Appearance: Appropriate Patient Orientation: Person and Situation Level of Consciousness: Awake and Appropriate Patient Behavior: Guarded and Passive Mood Description: Calm Affect Description: Constricted Patient Cognition Impaired: Yes Ability to Follow Directions: Good Speech Pattern: Clear Hallucinations: None Delusions: Paranoid Ideation Thought Process: Distracted and Slowed Thinking Thought Content: positive for [place] and positive for Thought Blocking Judgement: Fair Diagnostics Vital Signs (24Hr): Vital Signs - 24 hr 12/06/22 18:00 Temperature 97.2 F Pulse Rate 75 Respiratory Rate 18 Blood Pressure 124/78 Pulse Oximetry 98 Oxygen Delivery Method Room Air BMI result Body Mass Index 26.7 Labs 10/25/22 08:09 10/25/22 08:09 Medications Medications Current Medications Acetaminophen (Acetaminophen 325 Mg Tablet) 650 mg PO Q6H PRN PRN Reason: Headache/Pain Mild Scale (1-3) Last Admin: 12/02/22 16:04 Dose: 650 mg Al Hydroxide/Mg Hydroxide (Magnesium Hydrox/Alum Hydrox 30 Ml Oral.Susp) 30 ml PO Q6H PRN PRN Reason: Heartburn/Nausea Last Admin: 11/18/22 17:37 Dose: 30 ml Amlodipine Besylate (Amlodipine Besylate 2.5 Mg Tablet) 2.5 mg PO DAILY [facility]; Protocol Last Admin: 12/06/22 08:58 Dose: Not Given Aspirin (Aspirin 81 Mg Tab.Chew) 81 mg PO DAILY [facility] Last Admin: 12/06/22 08:58 Dose: Not Given Atorvastatin Calcium (Atorvastatin Calcium 20 Mg Tablet) 20 mg PO BEDTIME@1800 [facility] Last Admin: 12/06/22 17:52 Dose: Not Given Cyanocobalamin (Cyanocobalamin (Vitamin B-12) 1,000 Mcg Tablet) 1,000 mcg PO DAILY [facility] Last Admin: 12/06/22 08:58 Dose: Not Given Haloperidol Lactate (Haloperidol Lactate Oral Conc 10 Mg/5 Ml Oral.Conc) 5 mg PO DAILY [facility] Last Admin: 12/06/22 08:58 Dose: 5 mg Hydroxyzine HCl (Hydroxyzine Hcl 25 Mg Tablet) 25 mg PO Q6H PRN PRN Reason: Anxiety Lidocaine (Lidocaine 4 % Patch Adh..Patch) 2 patch TRANSDERMA DAILY [facility]; Protocol Last Admin: 12/06/22 09:00 Dose: Not Given Magnesium Hydroxide (Milk Of Magnesia 30 Ml Oral.Susp) 30 ml PO DAILY PRN PRN Reason: Constipation Last Admin: 12/04/22 09:20 Dose: 30 ml Olanzapine (Olanzapine Odt 10 Mg Tab.Rapdis) 10 mg TRANSLINGU Q6H PRN PRN Reason: agitation Last Admin: 10/31/22 14:30 Dose: 10 mg Senna/Docusate Sodium (Sennosides/Docusate Sodium Tablet) 1 tab PO BEDTIME@1800 [facility] Last Admin: 12/06/22 17:52 Dose: Not Given Simethicone (Simethicone 80 Mg Tab.Chew) 80 mg PO QIDWMHS PRN PRN Reason: flatulance Trazodone HCl (Trazodone Hcl 50 Mg Tablet) 50 mg PO BEDTIME PRN PRN Reason: Insomnia Last Admin: 11/05/22 21:37 Dose: 50 mg Allergies Allergies Allergy/AdvReac Type Severity Reaction Status Date / Time No Known Allergies Allergy Verified 10/24/22 13:55 Assessment & Plan Assessment & Plan (1) Schizophrenia, paranoid, chronic with acute exacerbation: Status: Acute Code(s): F20.0 - Paranoid schizophrenia Plan Elderly descent female, Creole speaking, with a long history of psychosis admitted for exacerbation of psychotic symptoms and agitation. Plan 1. Continue same treatment. 2. Waiting for placement Reason for continued inpatient stay Substantial Risk for: inability to function, rapid decompensation and med/psych decompensation Time Spent With Patient Time: Total time managing care of this patient today __20__ minutes.
[2022-12-07 08:30] VITALS: BP 136/68; PULSE 80; RESP 18; TEMP 36.7; O2SAT 97
[2022-12-07] MEDS: Cyanocobalamin (Vitamin B-12) 1,000 MCG TABLET 1000 MCG PO (10:36)
[2022-12-07] MEDS: Aspirin 81 MG TAB.CHEW PO (10:36)
[2022-12-07] MEDS: amLODIPine Besylate 2.5 MG TABLET PO (10:36)
[2022-12-07] MEDS: Haloperidol Lactate Oral Conc 10 MG/5 ML ORAL.CONC 5 MG PO (10:37)
[2022-12-07 21:13] VITALS: RESP 18
[2022-12-08 08:06] VITALS: PULSE 90; RESP 18; TEMP 35.9; O2SAT 95
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
== END 2022-12-08 16:25 | disposition home or self-care (01) | DRG 885 ==
PROVIDERS: Social Worker; Admitting Provider Psychiatry & Neurology Psychiatry; Visit Provider Psychiatry & Neurology Psychiatry
DX: F20.0 Paranoid schizophrenia (principal); F03.918 Unspecified dementia, unspecified severity, with other behavioral disturbance; E78.5 Hyperlipidemia, unspecified; I10 Essential (primary) hypertension; D53.9 Nutritional anemia, unspecified; A53.9 Syphilis, unspecified; Z91.148 Patient's other noncompliance with medication regimen for other reason; Z79.82 Long term (current) use of aspirin; Z79.899 Other long term (current) drug therapy
CPT/HCPCS: 36415; 80053; 80061; 82607; 82746; 83036; 84443; 85025; 93005; J2060